=== PATIENT | female | born 1950 | race African-American/Black ===

== ENCOUNTER 2016-05-06 03:35 | Inpatient (IN) | payer OTHER ==
[~2016-05-06] VITALS: Ht 165.1 cm; Wt 74.8 kg
[2016-05-06] VITALS (8 sets, daily range): BP systolic 112–203; BP diastolic 89–112
[~2016-05-06 03:35] MED LIST: AMLODIPINE BESY10 MG ORAL; ASPIRIN81 MG ORAL; CLONIDINE0.1 MG GT; HYDROCHLOROTHIA25 MG ORAL; LIPITOR20 MG ORAL; LOPRESSOR25 M1 ORAL; LOSARTAN POTASS50 MG ORAL; MULTIVITAMINS1 EA14 PO; NORCO 5-325 TA1 EAC1 ORAL; TOPROL XL25 MG ORAL; ZOFRAN4 M1 ORAL
[2016-05-06] MEDS ORDERED: METOPROLOL TART25 MG ORAL (03:39)
--- NOTE | 2016-05-06 03:51 | Emergency Room Report ---
History of Present Illness General Chief Complaint: Vomiting Source: Patient Present Illness HPI 65 YO F with HTN with nausea,vomiting, and abd distention for last 12 hours. Associated with decreased bowel movements, not passing gas. Previous hysterectomy and "surgery to remove scar tissue." Denies chest pain, SOB, fever /chills, urinary complaints. Allergies: Coded Allergies: CODEINE (Unverified Allergy, Severe, Hives, 11/13/13) Patient History Past Medical History: HTN Past Surgical History: hysterectomy Pertinent Family History: none Social History: Denies: alcohol use, drug use, smoking Immunizations: UTD Reviewed Nursing Documentation: PMH: Agreed, PSxH: Agreed Nursing Documentation-PMH Hx Cardiac Problems: Yes - STENT Hx Hypertension: Yes Hx Cancer: No Hx Gastrointestinal Problems: Yes - hiatal hernia Hx Neurological Problems: No Review of Systems All Other Systems: negative except mentioned in HPI Physical Exam Vital Signs Date Time Temp Pulse Resp B/P Pulse Ox O2 Delivery O2 Flow Rate FiO2 05/06/16 03:33 98.1 118 18 204/99 96 Room Air Sp02 EP Interpretation: reviewed, abnormal General Appearance: normal inspection, well appearing, alert, GCS 15, non-toxic , moderate distress Head: normocephalic, atraumatic Eyes: bilateral eye EOMI, bilateral eye PERRL ENT: normal ENT inspection, hearing grossly normal, normal voice Neck: normal inspection, full range of motion, supple, no bony tend Respiratory: normal inspection, lungs clear, normal breath sounds, no respiratory distress, no retraction, no wheezing Cardiovascular #1: regular rate, rhythm, no edema Gastrointestinal: normal inspection, normal bowel sounds, no hernia, no pulsatile mass, no rebound, distended Genitourinary: no CVA tenderness Musculoskeletal: normal inspection, back normal, normal range of motion, Gerardo' s Sign negative Neurologic: normal inspection, alert, oriented x3, responsive, 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 Elevated lipase. Lactate 4.0 CTAP: On ED review, multiple loops of dilated bowel, air fluid levels NG Tube placed with bilious dark materials, >700cc so far Dr Merlos consulted LR maintenance fluid in process Empiric Abx given Serial Lactate sent NPO Endorsed to Dr Pathak for med/surg admissions at 548am EKG Diagnostic Results Rate: tachycardiac Rhythm: NSR ST Segments: no acute changes ASA given to the pt in ED: No Rhythm Strip Diag. Results EP Interpretation: yes Rate: 114 Rhythm: NSR, no PVC's, no ectopy Chest X-Ray Diagnostic Results EP Interpretation: Yes Findings: no consolidation, no effusion, no pneumothorax, no acute cardiopulmonary disease Number of Views: 1 Last Vital Signs Date Time Temp Pulse Resp B/P Pulse Ox O2 Delivery O2 Flow Rate FiO2 05/06/16 03:33 98.1 118 18 204/99 96 Room Air Status: improved Disposition: ADMITTED INPATIENT Condition: Serious TACO QUINONES M.D. May 06, 2016 03:51
[2016-05-06] MEDS ORDERED: Zosyn 3.375gm inj ONE (03:54)
[2016-05-06] MEDS ORDERED: Famotidine 20 MG/ 2ML VIAL IVP ONE (04:00)
[2016-05-06 04:22] LABS: MEAN CORPUSCULAR HEMOGLOBIN 28.4 PG (27.0-31.0); MEAN CORPUSCULAR HGB CONC 30.2 G/DL (32.0-36.0); MEAN CORPUSCULAR VOLUME 94 FL (80-99); MEAN PLATELET VOLUME 9.8 FL (6.5-10.1); PLATELET COUNT 209 K/UL (150-450); RED BLOOD COUNT 4.67 M/UL (4.20-5.40); RED CELL DISTRIBUTION WIDTH 19.6 % (11.6-14.8); WHITE BLOOD COUNT 11.5 K/UL (4.8-10.8)
[2016-05-06] MEDS ORDERED: LR 1000ml 1,000 ML IV SCH ×2 (04:30→06:00)
[2016-05-06 04:43] LABS: ALANINE AMINOTRANSFERASE 8 U/L (3-33); ALBUMIN/GLOBULIN RATIO 1.2 (1.0-2.7); ANION GAP 24 (5-15); ASPARTATE AMINO TRANSFERASE 17 U/L (5-40); CALCIUM 10.9 mg/dL (8.6-10.2); CARBON DIOXIDE 25 mEQ/L (20-30); CHLORIDE 96 mEQ/L (98-107); GLOMERULAR FILTRATION RATE > 60 mL/min (>60); HEMOLYSIS 0; LIPASE 68 U/L (< 60); POTASSIUM 3.8 mEQ/L (3.4-4.9); SODIUM 145 mEQ/L (135-145); TOTAL PROTEIN 9.1 g/dL (6.6-8.7)
[2016-05-06 04:45] LABS: TROPONIN I < 0.30 ng/mL (<=0.30)
[2016-05-06] MEDS ORDERED: Morphine Sulfate 2mg/ml Inj IVP ONE (04:45)
[2016-05-06 05:15] LABS: APPEARANCE,URINE SLIGHTLY CLOUDY; KETONES,URINE 1+ (NEGATIVE); LEUKOCYTE ESTERASE ,URINE 1+ (NEGATIVE); NITRITE,URINE NEGATIVE (NEGATIVE); PH,URINE 5 (4.5-8.0); PROTEIN,URINE 4+ (NEGATIVE); UROBILINOGEN,URINE 1 MG/DL (0.0-1.0)
[2016-05-06 05:35] LABS: REFLEX LACTIC ACID YES OR NO YES
[2016-05-06 05:44] LABS: AMORPHOUS SEDIMENT,UR FEW /LPF; BACTERIA,URINE MODERATE /HPF; MUCUS,URINE FEW /LPF (NONE/OCC); SQUAMOUS EPITHELIAL CELL,UR MODERATE /LPF (NONE/OCC)
[2016-05-06] MEDS ORDERED: Morphine Sulfate 4mg/ml Inj IVP ONE (05:45)
[2016-05-06] MEDS ORDERED: Piperacillin/Tazobactam 3.375 GM in NS 110 ML IVPB ONE (06:00)
[2016-05-06 06:59] LABS: PROTHROMBIN TIME 9.9 SEC (9.30-11.50)
[2016-05-06] MEDS ORDERED: Nitroglycerin Subl 0.4mg tab (Bottle Of 25) SL PRN ×2 (07:15→14:45)
[2016-05-06] MEDS ORDERED: Miralax 17gm pkt ORAL PRN ×2 (07:15→15:30)
[2016-05-06] MEDS ORDERED: Mylanta II UD 30ml ORAL PRN ×2 (07:15→15:30)
[2016-05-06] MEDS ORDERED: Morphine Sulfate 2mg/ml Inj IVP PRN (07:15)
[2016-05-06] MEDS ORDERED: D5 1/2NS 1,000 ML IV SCH (07:30)
[2016-05-06] MEDS ORDERED: Heparin 5000 units/ml inj SUBQ SCH (09:00)
--- NOTE | 2016-05-06 09:54 | General Progress Note ---
Progress Note Progress Note pt seen and examined. consult dictated CT reviewed with raqdiologist. Imp high grade bowel obstruction, most likely to pelvic adhesions. Plan admit, hydrate. NG sucction, Serial exams and xrays, If no improvement will need exploratory laparotomy AMISH YOON May 06, 2016 09:54
[2016-05-06] MEDS ORDERED: Losartan 50mg tab ORAL SCH (10:00)
--- NOTE | 2016-05-06 10:04 | Diagnostic Imaging Report ---
Clinical Indication: Abdominal pain Technique: No oral contrast utilized, per emergency room physician request IV administration nonionic contrast. Venous phase spiral acquisition obtained through the abdomen and pelvis. Multiplanar reconstructions were generated. Total dose length product 87 mGycm. CTDIvol(s) 16 mGy Comparison: None Findings: The small bowel, stomach, duodenum are markedly dilated and fluid-filled. There are collapsed distal small bowel loops. The exact transition point is difficult to ascertain, but suspect in the upper pelvic midline. The appendix is normal. Colon is nondistended. There is no evidence of diverticulosis or diverticulitis. A small amount of free fluid is seen over the dome of the liver and over the spleen. No free intraperitoneal air. There is somewhat unusual appearance of the gastroesophageal junction, could indicate prior fundoplication. The liver, gallbladder, bile ducts, pancreas, spleen, adrenals, kidneys are unremarkable. The uterus is surgically absent. There are degenerative changes of the lumbar spine. The included lung bases are clear. Impression: Findings compatible with high-grade small bowel obstruction, level of obstruction at the level of the ileum. Probably secondary to effusions. Post surgical changes, as described, including likely prior fundoplication, prior hysterectomy Small amount of free intraperitoneal fluid, etiology indeterminate This agrees with the preliminary interpretation provided overnight by [facility] teleradiology service. The CT scanner at [facility] is accredited by the [employer] and the scans are performed using protocols designed to limit radiation exposure to as low as reasonably achievable to attain images of sufficient resolution adequate for diagnostic evaluation.
[2016-05-06 10:08] LABS: BAND NEUTROPHILS % (MANUAL) 2 % (0-8); BASOPHILS % (MANUAL) 0 % (0-2); EOSINOPHILS % (MANUAL) 0 % (0-3); HYPOCHROMASIA 1+; LYMPHOCYTES % (MANUAL) 14 % (20-45); NEUTROPHILS % (MANUAL) 77 % (45-75); PLATELET ESTIMATE ADEQUATE; PLATELET MORPHOLOGY NORMAL; TOTAL CELLS COUNTED 100
[2016-05-06 10:09] LABS: ANISOCYTOSIS 2+
[2016-05-06 10:10] LABS: STOMATOCYTES OCCASIONAL
--- NOTE | 2016-05-06 11:09 | Diagnostic Imaging Report ---
Indication: Chest pain Technique: One view of the chest Comparison: 04/05/2015 Findings: Lungs and pleural spaces are clear. Heart is mildly enlarged. Stomach is distended by gas. There are no significant interim change Impression: No acute process Borderline cardiomegaly
--- NOTE | 2016-05-06 15:09 | GI Initial Consult Note ---
History of Present Illness General Date patient seen: May 06, 2016 Time patient seen: 15:03 Reason for Hospitalization: Vomiting Referring physician: KATHERINE DOVE Reason for Consultation: ABDOMINAL DISTENTION / OBSTRUCTION Present Illness HPI 65 YO F with HTN with nausea,vomiting, and abd distention for last 12 hours. Associated with decreased bowel movements, not passing gas. Previous hysterectomy and "surgery to remove scar tissue." Denies chest pain, SOB, fever /chills, urinary complaints. GI CONSULT: HPI as noted above. GI consulted for evaluation of abdominal pain and distention x 24 hours. Pt presents with APCT findings compatible with high- grade small bowel obstruction now being followed by surgery. In addition, the patient presents with leukocytosis and elevated lipase. Unknown history of endoscopic procedures at this time. Service Date: 05/06/16 Procedure: CT Abdomen Pelvis w/Contrast Clinical Indication: Abdominal pain Impression: Findings compatible with high-grade small bowel obstruction, level of obstruction at the level of the ileum. Probably secondary to effusions. Post surgical changes, as described, including likely prior fundoplication, prior hysterectomy Small amount of free intraperitoneal fluid, etiology indeterminate Home Meds Active Scripts Metoprolol Succinate* (TOPROL XL*) 25 Mg Tab.er.24h, 25 MG ORAL DAILY, #30 TAB Prov:Carlton (Aylin Negro CRICKET COACH 04/08/15 Reported Medications Metoprolol Tartrate* (METOPROLOL TARTRATE*) 25 Mg Tablet, 25 MG ORAL EVERY 12 HOURS, TAB 05/06/16 Ondansetron (Zofran) 4 Mg Tab, 4 MG ORAL Q6H Y for Nausea & Vomiting, TAB 11/19/13 Hydrocodone Bit/Acetaminophen 5-325* (NORCO 5-325 TABLET*) 1 Each Tablet, 1-2 TAB ORAL Q4H Y for For Pain, TAB 11/19/13 Losartan Potassium* (LOSARTAN POTASSIUM*) 50 Mg Tablet, 50 MG ORAL DAILY, TAB 11/13/13 Atorvastatin Calcium* (LIPITOR*) 20 Mg Tablet, 20 MG ORAL BEDTIME, TAB 11/13/13 Aspirin* (ASPIRIN*) 81 Mg Tab.chew, 81 MG ORAL DAILY, TAB 11/13/13 Metoprolol Tartrate (Metoprolol Tartrate) 25 Mg Tab, 50 MG ORAL BID Y for For High Blood Pressure, TAB 11/13/13 Hydrochlorothiazide* (HYDROCHLOROTHIAZIDE*) 25 Mg Tablet, 25 MG ORAL DAILY, TAB 11/13/13 Amlodipine Besylate* (AMLODIPINE BESYLATE*) 10 Mg Tablet, 10 MG ORAL DAILY, TAB 11/13/13 Multivitamin (Multivitamins) 1 Each Tablet, 1 EACH PO DAILY Y for Abdominal cramps, TAB 11/13/13 Clonidine HCl (Clonidine HCl) 0.1 Mg Tab, 0.1 MG GT BID, TAB 11/13/13 Med list reviewed/reconciled: Yes Allergies: Coded Allergies: CODEINE (Unverified Allergy, Severe, Hives, 11/13/13) Patient History History Provided By: Patient, Medical Record PMH Narrative Past Medical History: HTN Past Surgical History: hysterectomy Pertinent Family History: none Social History: Denies: alcohol use, drug use, smoking Immunizations: UTD Reviewed Nursing Documentation: PMH: Agreed, PSxH: Agreed Nursing Documentation-PMH Hx Cardiac Problems: Yes - STENT Hx Hypertension: Yes Hx Cancer: No Hx Gastrointestinal Problems: Yes - hiatal hernia Hx Neurological Problems: No Review of Systems All Other Systems: negative except mentioned in HPI Physical Exam Vital Signs Date Time Temp Pulse Resp B/P Pulse Ox O2 Delivery O2 Flow Rate FiO2 05/06/16 03:33 98.1 118 18 204/99 96 Room Air 05/06/16 06:30 2.0 Sp02 EP Interpretation: reviewed Labs Laboratory Tests Test 05/06/16 03:00 05/06/16 03:34 05/06/16 03:47 05/06/16 06:20 White Blood Count 11.5 K/UL (4.8-10.8) H Red Blood Count 4.67 M/UL (4.20-5.40) Hemoglobin 13.3 G/DL (12.0-16.0) Hematocrit 44.0 % (37.0-47.0) Mean Corpuscular Volume 94 FL (80-99) Mean Corpuscular Hemoglobin 28.4 PG (27.0-31.0) Mean Corpuscular Hemoglobin Concent 30.2 G/DL (32.0-36.0) L Red Cell Distribution Width 19.6 % (11.6-14.8) H Platelet Count 209 K/UL (150-450) Mean Platelet Volume 9.8 FL (6.5-10.1) Neutrophils (%) (Auto) % (45.0-75.0) Lymphocytes (%) (Auto) % (20.0-45.0) Monocytes (%) (Auto) % (1.0-10.0) Eosinophils (%) (Auto) % (0.0-3.0) Basophils (%) (Auto) % (0.0-2.0) Differential Total Cells Counted 100 Neutrophils % (Manual) 77 % (45-75) H Lymphocytes % (Manual) 14 % (20-45) L Monocytes % (Manual) 7 % (1-10) Eosinophils % (Manual) 0 % (0-3) Basophils % (Manual) 0 % (0-2) Band Neutrophils 2 % (0-8) Platelet Estimate Adequate Platelet Morphology Normal Hypochromasia 1+ Anisocytosis 2+ Stomatocytes Occasional Sodium Level 145 mEQ/L (135-145) Potassium Level 3.8 mEQ/L (3.4-4.9) Chloride Level 96 mEQ/L (98-107) L Carbon Dioxide Level 25 mEQ/L (20-30) Anion Gap 24 (5-15) H Blood Urea Nitrogen 23 mg/dL (7-23) Creatinine 1.0 mg/dL (0.5-0.9) H Estimat Glomerular Filtration Rate > 60 mL/min (>60) Glucose Level 239 mg/dL (74-106) H Calcium Level 10.9 mg/dL (8.6-10.2) H Total Bilirubin 0.9 mg/dL (0.0-1.2) Aspartate Amino Transf (AST/SGOT) 17 U/L (5-40) Alanine Aminotransferase (ALT/SGPT) 8 U/L (3-33) Alkaline Phosphatase 98 U/L (35-104) Troponin I < 0.30 ng/mL (<=0.30) Total Protein 9.1 g/dL (6.6-8.7) H Albumin 5.0 g/dL (3.5-5.2) Globulin 4.1 g/dL Albumin/Globulin Ratio 1.2 (1.0-2.7) Lipase 68 U/L (< 60) H Urine Color Tasia Urine Appearance Slightly cloudy Urine pH 5 (4.5-8.0) Urine Specific [place] 1.025 (1.005-1.035) Urine Protein 4+ (NEGATIVE) H Urine Glucose (UA) Negative (NEGATIVE) Urine Ketones 1+ (NEGATIVE) H Urine Occult Blood 4+ (NEGATIVE) H Urine Nitrite Negative (NEGATIVE) Urine Bilirubin 1+ (NEGATIVE) H Urine Ictotest Urine Urobilinogen 1 MG/DL (0.0-1.0) H Urine Leukocyte Esterase 1+ (NEGATIVE) H Urine RBC 5-10 /HPF (0 - 2) H Urine WBC 2-4 /HPF (0 - 2) Urine Squamous Epithelial Cells Moderate /LPF (NONE/OCC) H Urine Amorphous Sediment Few /LPF (NONE) H Urine Bacteria Moderate /HPF (NONE) H Urine Hyaline Casts 5-10 /LPF (NONE) H Urine Coarse Granular Casts 2-4 /LPF (NONE) H Urine Mucus Few /LPF (NONE/OCC) H Lactic Acid Level 4.00 mmol/L (0.66-2.22) H 3.60 mmol/L (0.66-2.22) H Prothrombin Time 9.9 SEC (9.30-11.50) Prothromb Time International Ratio 1.0 (0.9-1.1) Activated Partial Thromboplast Time 26 SEC (23-33) General Appearance: well appearing, no apparent distress, alert Head: normocephalic EENT: PERRL/EOMI, normal ENT inspection Neck: supple Respiratory: normal breath sounds, no respiratory distress Cardiovascular: normal rate Gastrointestinal: normal inspection, non tender, soft, other - NGT Rectal: deferred Musculoskeletal: back normal Neurologic: alert, oriented x3, responsive Psychiatric: normal inspection, judgement/insight normal Skin: normal inspection, normal color, no rash Lymphatic: normal inspection, no adenopathy Current Medications Current Medications Medications (Trade) Dose Ordered Sig/Talita Route PRN Reason Start Time Stop Time Status Last Admin Dose Admin Acetaminophen (Tylenol) 650 mg Q4H PRN ORAL fever 05/06/16 15:15 06/05/16 15:14 Al Hydroxide/Mg Hydroxide (Mylanta II) 30 ml Q6H PRN ORAL dyspepsia 05/06/16 15:30 06/05/16 15:29 Amlodipine Besylate (Norvasc) 10 mg DAILY ORAL 05/07/16 09:00 06/06/16 08:59 Dextrose (Dextrose 50%) STAT PRN IV Hypoglycemia 05/06/16 15:30 06/05/16 15:29 Dextrose/Sodium Chloride (D5 0.45% NS) 1,000 ml @ 75 mls/hr [id number] IV 05/06/16 15:30 06/05/16 15:29 Diphenhydramine HCl (Benadryl) 25 mg Q6H PRN ORAL Itching/Pruritis 05/06/16 15:30 06/05/16 15:29 Heparin Sodium (Porcine) (Heparin 5000 units/ml) 5,000 units EVERY 12 HOURS SUBQ 05/06/16 21:00 06/05/16 20:59 Losartan Potassium (Cozaar) 50 mg DAILY ORAL 05/07/16 09:00 06/06/16 08:59 Metoprolol Succinate (Toprol XL) 25 mg DAILY ORAL 05/07/16 09:00 06/06/16 08:59 Morphine Sulfate (Morphine Sulfate) 2 mg Q4H PRN IVP severe Pain (Pain Scale 7-10) 05/06/16 15:30 05/13/16 15:29 Nitroglycerin (Ntg) 0.4 mg Q5M X 3 DOSES PRN SL Prn Chest Pain 05/06/16 14:45 06/05/16 14:44 Ondansetron HCl (Zofran) 4 mg Q6H PRN IVP Nausea & Vomiting 05/06/16 15:30 06/05/16 15:29 Polyethylene Glycol (Miralax) 17 gm HSPRN PRN ORAL Constipation 05/06/16 15:30 06/05/16 15:29 Temazepam (Restoril) 15 mg HSPRN PRN ORAL Insomnia 05/06/16 15:30 05/13/16 15:29 GI: Plan Problems: (1) Abdominal pain (2) SBO (small bowel obstruction) (3) Pancreatitis Plan fu surgical recs >> Imp high grade bowel obstruction, most likely to pelvic adhesions. bowel decompression >> maintain NGT to LCIS maintain NPO + IVFs PPI repeat lipase levels fu labs Discussed with Dr. Benitez. Thank you for referring this patient, we will follow. Luz Marina Rodriguez N.P. May 06, 2016 15:09
--- NOTE | 2016-05-06 15:26 | History and Physical ---
History of Present Illness General Date patient seen: May 06, 2016 Reason for Hospitalization: Vomiting Present Illness HPI 65year old female with hx of HTN presented with CC of nausea,vomiting, and abd distention for last 12 hours. Associated with decreased bowel movements, not passing gas. Previous hysterectomy and "surgery to remove scar tissue." Denies chest pain, SOB, fever/chills, urinary complaints. A CT of abdomen showed SBO and admitted for further evaluation. Allergies: Coded Allergies: CODEINE (Unverified Allergy, Severe, Hives, 11/13/13) Medication History Scheduled Amlodipine Besylate* (Amlodipine Besylate*), 10 MG ORAL DAILY, (Reported) Aspirin* (Aspirin*), 81 MG ORAL DAILY, (Reported) Atorvastatin Calcium* (Lipitor*), 20 MG ORAL BEDTIME, (Reported) Clonidine HCl (Clonidine HCl), 0.1 MG GT BID, (Reported) Hydrochlorothiazide* (Hydrochlorothiazide*), 25 MG ORAL DAILY, (Reported) Losartan Potassium* (Losartan Potassium*), 50 MG ORAL DAILY, (Reported) Metoprolol Succinate* (Toprol Xl*), 25 MG ORAL DAILY Metoprolol Tartrate* (Metoprolol Tartrate*), 25 MG ORAL EVERY 12 HOURS, ( Reported) Scheduled PRN Hydrocodone Bit/Acetaminophen 5-325* ([place] 5-325 Tablet*), 1-2 TAB ORAL Q4H PRN for For Pain, (Reported) Metoprolol Tartrate (Metoprolol Tartrate), 50 MG ORAL BID PRN for For High Blood Pressure, (Reported) Multivitamin (Multivitamins), 1 EACH PO DAILY PRN for Abdominal cramps, ( Reported) Ondansetron (Zofran), 4 MG ORAL Q6H PRN for Nausea & Vomiting, (Reported) Patient History Healthcare decision maker Resuscitation status Full Code Advanced Directive on File No Review of Systems All Other Systems: negative except mentioned in HPI Physical Exam General Appearance: WD/WN Lines, tubes and drains: peripheral HEENT: normocephalic, atraumatic Neck: non-tender, normal alignment Respiratory/Chest: chest wall non-tender, lungs clear Cardiovascular/Chest: normal peripheral pulses, normal rate Abdomen: distended Genitourinary/Rectal: normal genital exam, normal rectal exam Last 24 Hour Vital Signs Date Time Temp Pulse Resp B/P Pulse Ox O2 Delivery O2 Flow Rate FiO2 05/06/16 14:30 84 05/06/16 11:28 97.5 83 19 192/98 96 Room Air 05/06/16 10:21 97.3 92 19 198/94 96 Nasal Cannula 2.0 05/06/16 09:39 97.5 86 18 194/89 100 Room Air 2.0 05/06/16 09:10 97.5 86 18 194/89 100 Room Air 05/06/16 07:45 98.2 102 18 203/95 98 Nasal Cannula 2.0 05/06/16 06:30 98.4 99 17 193/91 97 Nasal Cannula 2.0 05/06/16 06:23 98.4 05/06/16 05:19 98.4 05/06/16 04:28 212/112 05/06/16 03:40 98.1 112 18 112/112 100 Room Air 05/06/16 03:33 98.1 118 18 204/99 96 Room Air Intake and Output 05/05/16 05/06/16 19:00 07:00 Intake Total 1100 ml Output Total 300 ml Balance 800 ml IV Total 1100 ml Output Urine Total 300 ml # Voids 1 Laboratory Tests Test 05/06/16 03:00 05/06/16 03:34 05/06/16 03:47 05/06/16 06:20 White Blood Count 11.5 K/UL (4.8-10.8) H Red Blood Count 4.67 M/UL (4.20-5.40) Hemoglobin 13.3 G/DL (12.0-16.0) Hematocrit 44.0 % (37.0-47.0) Mean Corpuscular Volume 94 FL (80-99) Mean Corpuscular Hemoglobin 28.4 PG (27.0-31.0) Mean Corpuscular Hemoglobin Concent 30.2 G/DL (32.0-36.0) L Red Cell Distribution Width 19.6 % (11.6-14.8) H Platelet Count 209 K/UL (150-450) Mean Platelet Volume 9.8 FL (6.5-10.1) Neutrophils (%) (Auto) % (45.0-75.0) Lymphocytes (%) (Auto) % (20.0-45.0) Monocytes (%) (Auto) % (1.0-10.0) Eosinophils (%) (Auto) % (0.0-3.0) Basophils (%) (Auto) % (0.0-2.0) Differential Total Cells Counted 100 Neutrophils % (Manual) 77 % (45-75) H Lymphocytes % (Manual) 14 % (20-45) L Monocytes % (Manual) 7 % (1-10) Eosinophils % (Manual) 0 % (0-3) Basophils % (Manual) 0 % (0-2) Band Neutrophils 2 % (0-8) Platelet Estimate Adequate Platelet Morphology Normal Hypochromasia 1+ Anisocytosis 2+ Stomatocytes Occasional Sodium Level 145 mEQ/L (135-145) Potassium Level 3.8 mEQ/L (3.4-4.9) Chloride Level 96 mEQ/L (98-107) L Carbon Dioxide Level 25 mEQ/L (20-30) Anion Gap 24 (5-15) H Blood Urea Nitrogen 23 mg/dL (7-23) Creatinine 1.0 mg/dL (0.5-0.9) H Estimat Glomerular Filtration Rate > 60 mL/min (>60) Glucose Level 239 mg/dL (74-106) H Calcium Level 10.9 mg/dL (8.6-10.2) H Total Bilirubin 0.9 mg/dL (0.0-1.2) Aspartate Amino Transf (AST/SGOT) 17 U/L (5-40) Alanine Aminotransferase (ALT/SGPT) 8 U/L (3-33) Alkaline Phosphatase 98 U/L (35-104) Troponin I < 0.30 ng/mL (<=0.30) Total Protein 9.1 g/dL (6.6-8.7) H Albumin 5.0 g/dL (3.5-5.2) Globulin 4.1 g/dL Albumin/Globulin Ratio 1.2 (1.0-2.7) Lipase 68 U/L (< 60) H Urine Color Tasia Urine Appearance Slightly cloudy Urine pH 5 (4.5-8.0) Urine Specific [place] 1.025 (1.005-1.035) Urine Protein 4+ (NEGATIVE) H Urine Glucose (UA) Negative (NEGATIVE) Urine Ketones 1+ (NEGATIVE) H Urine Occult Blood 4+ (NEGATIVE) H Urine Nitrite Negative (NEGATIVE) Urine Bilirubin 1+ (NEGATIVE) H Urine Ictotest Urine Urobilinogen 1 MG/DL (0.0-1.0) H Urine Leukocyte Esterase 1+ (NEGATIVE) H Urine RBC 5-10 /HPF (0 - 2) H Urine WBC 2-4 /HPF (0 - 2) Urine Squamous Epithelial Cells Moderate /LPF (NONE/OCC) H Urine Amorphous Sediment Few /LPF (NONE) H Urine Bacteria Moderate /HPF (NONE) H Urine Hyaline Casts 5-10 /LPF (NONE) H Urine Coarse Granular Casts 2-4 /LPF (NONE) H Urine Mucus Few /LPF (NONE/OCC) H Lactic Acid Level 4.00 mmol/L (0.66-2.22) H 3.60 mmol/L (0.66-2.22) H Prothrombin Time 9.9 SEC (9.30-11.50) Prothromb Time International Ratio 1.0 (0.9-1.1) Activated Partial Thromboplast Time 26 SEC (23-33) Height (Feet): 5 Height (Inches): 6.00 Weight (Pounds): 165 Medications Current Medications Medications (Trade) Dose Ordered Sig/Talita Route PRN Reason Start Time Stop Time Status Last Admin Dose Admin Acetaminophen (Tylenol) 650 mg Q4H PRN ORAL fever 05/06/16 15:15 06/05/16 15:14 Al Hydroxide/Mg Hydroxide (Mylanta II) 30 ml Q6H PRN ORAL dyspepsia 05/06/16 15:30 06/05/16 15:29 Amlodipine Besylate (Norvasc) 10 mg DAILY ORAL 05/07/16 09:00 06/06/16 08:59 Dextrose (Dextrose 50%) STAT PRN IV Hypoglycemia 05/06/16 15:30 06/05/16 15:29 Dextrose/Sodium Chloride (D5 0.45% NS) 1,000 ml @ 75 mls/hr [id number] IV 05/06/16 15:30 06/05/16 15:29 Diphenhydramine HCl (Benadryl) 25 mg Q6H PRN ORAL Itching/Pruritis 05/06/16 15:30 06/05/16 15:29 Heparin Sodium (Porcine) (Heparin 5000 units/ml) 5,000 units EVERY 12 HOURS SUBQ 05/06/16 21:00 06/05/16 20:59 Losartan Potassium (Cozaar) 50 mg DAILY ORAL 05/07/16 09:00 06/06/16 08:59 Metoprolol Succinate (Toprol XL) 25 mg DAILY ORAL 05/07/16 09:00 06/06/16 08:59 Morphine Sulfate (Morphine Sulfate) 2 mg Q4H PRN IVP severe Pain (Pain Scale 7-10) 05/06/16 15:30 05/13/16 15:29 Nitroglycerin (Ntg) 0.4 mg Q5M X 3 DOSES PRN SL Prn Chest Pain 05/06/16 14:45 06/05/16 14:44 Ondansetron HCl (Zofran) 4 mg Q6H PRN IVP Nausea & Vomiting 05/06/16 15:30 06/05/16 15:29 Pantoprazole (Protonix) 40 mg DAILY IVP 05/07/16 09:00 06/06/16 08:59 Polyethylene Glycol (Miralax) 17 gm HSPRN PRN ORAL Constipation 05/06/16 15:30 06/05/16 15:29 Temazepam (Restoril) 15 mg HSPRN PRN ORAL Insomnia 05/06/16 15:30 05/13/16 15:29 Assessment/Plan Problem List: (1) SBO (small bowel obstruction) ICD Codes: K56.69 - Other intestinal obstruction SNOMED: 958563621 (2) Abdominal pain ICD Codes: R10.9 - Unspecified abdominal pain SNOMED: 80282831 Qualifiers: Qualified Codes: R10.84 - Generalized abdominal pain Assessment/Plan NPO NG tube suction surgery evaluation KATHERINE ARANA May 06, 2016 15:26
--- NOTE | 2016-05-06 16:35 | Diagnostic Imaging Report ---
Indication: Abdominal pain Technique: Supine view of the abdomen Comparison: Disc Recordist image from CT scan of 9 hours earlier Findings: There is a nasogastric tube in place, tip projecting at the level gastric body. Small bowel distention as improved markedly, although a few mildly distended small bowel loops are still present. A somewhat gas-filled left lower quadrant bowel loop is probably just normal caliber sigmoid colon. Contrast is seen within the bladder, presumably from recent CT scan Impression: Persistent but considerably improved small bowel distention, overnight hours, consistent with improving small bowel obstruction Satisfactory nasogastric tube placement Findings discussed by phone with Dr. Merlos at the time of interpretation
[2016-05-06] MEDS: D5 1/2NS 1,000 ML IV SCH (16:51)
--- NOTE | 2016-05-06 17:03 | Diagnostic Imaging Report ---
Indication: Abdominal pain, nausea, vomiting Technique: Martinez-scale and duplex images of the upper abdomen were obtained Comparison: CT scan of 6 hours earlier Findings: There is trace ascites fluid. This is also reported on prior CT. Gallbladder is unremarkable, without stones, wall thickening, nor pericholecystic fluid. . Common bile duct measures 5 mm in diameter. No intrahepatic biliary ductal dilatation. Liver demonstrates normal echogenicity, no focal abnormality. Portal vein and hepatic veins are patent.. Pancreas is unremarkable. The spleen is unremarkable. A fluid pocket is seen inferomedial to the spleen. This does not have any correlate on CT, may represent a focal pocket of ascites fluid, or could represent fluid-filled stomach or small bowel. Left kidney measures 11.7 cm in length. Right kidney measures 11.9 cm length. Both kidneys demonstrate normal echogenicity. There is mild fullness of the right renal pelvis. No focal abnormality. . Non-aneurysmal abdominal aorta. Bladder is distended Impression: Trace ascites, also described on recent CT scan Negative for gallstones or dilated ducts Distended urinary bladder Mild fullness to the right renal collecting system, of doubtful significance as this is not evident on recent CT
--- NOTE | 2016-05-06 17:58 | Consultation ---
DATE OF CONSULTATION: 05/06/2016 REASON FOR CONSULTATION: Small bowel obstruction. HISTORY OF PRESENT ILLNESS: This is a very pleasant 65-year-old, woman presented to the emergency department at [facility] with one-day history of abdominal pain, nausea, and vomiting. She underwent a CT scan of the abdomen showing a moderate to severe dilatation of proximal small bowel with loops with air-fluid levels with a transition in the pelvis to normal caliber bowel consistent with a bowel obstruction. She was admitted for same. The last bowel movement was yesterday. They had noted less than last few days. She has had a previous total abdominal hysterectomy and oophorectomy and had another surgery to "remove scar tissue". PAST MEDICAL HISTORY: Remarkable for hypertension and hypercholesterolemia. FAMILY HISTORY: Not relevant. SOCIAL HISTORY: . Retired. REVIEW OF SYSTEMS: Pulmonary: No history of asthma, bronchitis, emphysema, pneumonia or tuberculosis. Gastrointestinal: No history of chest pain, palpitations, angina or NM. Genitourinary: No history of reflux, peptic ulcer disease, colitis, hepatitis, jaundice or pancreatitis. Gynecologic: Status post hysterectomy. She is a 2. She has grown twins and another child. Cardiac: The patient did undergo a stent placement. PHYSICAL EXAMINATION: GENERAL: The patient is a well-developed pleasant woman in mild distress. Alert and cooperative. NG in place. VITAL SIGNS: Her temperature is 97.5 degrees, pulse of 86, respirations 18, and blood pressure 194/89. HEENT: Normocephalic. The sclerae are not icteric. The pupils are round and reactive to light. Her throat is clear. NECK: Supple. LUNGS: Clear bilaterally. HEART: Normal sinus rhythm. ABDOMEN: Distended. No focal tenderness or guarding. Bowel sounds are hyperactive. EXTREMITIES: No clubbing, cyanosis, or edema. LABORATORY AND DIAGNOSTIC DATA: White blood count 11.5, hemoglobin of 13.2, hematocrit 44.0 and platelet count is 209,000. Chemistry shows a sodium 145, potassium 3.8, chloride 96, bicarbonate 25, BUN is 23, creatinine 1.0 and glucose is 239. Lactic acid is 3.6. Total bilirubin 0.9. AST of 17, ALT of 18 and alkaline phosphatase of 98. Total protein 9.1. Albumin 5.0. Lipase is 68. CT scan reviewed with radiologist shows as mentioned are markedly dilated small bowel loops with a transition point in the pelvis and uterus is absent. The appendix appears normal. No radiopaque gallstones, evidence of pancreatitis or pyelonephritis or hydronephrosis. IMPRESSION: Small-bowel obstruction. PLAN: The patient is admitted. She is undergoing NG suction and will undergo followup acute abdominal series. I had a long discussion with the patient and her about the diagnosis differential, probable need for surgery, the possibility that this may be managed conservatively with NG suction. The patient understands above and agrees with the plan. Shahbaz Merlos M.D. DR: DANIEL JOB#: [id number] CC:
[2016-05-06] MEDS ORDERED: Enalaprilat 2.5mg/2ml Inj IV PRN (18:30)
--- NOTE | 2016-05-06 19:48 | Cardiology Report ---
APPROVED REPORT EKG Measurement Heart [id number] DC 132P67 [id number] Sinus tachycardia Possible Left atrial enlargement Left ventricular hypertrophy Nonspecific T wave abnormality Abnormal ECG
[2016-05-06] MEDS: Heparin 5000 units/ml inj SUBQ SCH (20:49)
[2016-05-06] MEDS: Morphine Sulfate 2mg/ml Inj IVP PRN (21:06)
[2016-05-07] VITALS (8 sets, daily range): BP systolic 119–196; BP diastolic 68–98
[2016-05-07] MEDS: Labetalol 5mg/ml 20ml vial IV PRN ×3 (01:00→20:49)
[2016-05-07] MEDS: D5 1/2NS 1,000 ML IV SCH ×2 (05:56→19:17)
[2016-05-07 08:04] LABS: BASOPHILS % (AUTO) 0.7 % (0.0-2.0); EOSINOPHILS % (AUTO) 0.1 % (0.0-3.0); LYMPHOCYTES % (AUTO) 23.1 % (20.0-45.0); MEAN CORPUSCULAR HEMOGLOBIN 27.8 PG (27.0-31.0); MEAN CORPUSCULAR HGB CONC 29.3 G/DL (32.0-36.0); MEAN CORPUSCULAR VOLUME 95 FL (80-99); MEAN PLATELET VOLUME 10.6 FL (6.5-10.1); MONOCYTES % (AUTO) 7.3 % (1.0-10.0); NEUTROPHILS % (AUTO) 68.9 % (45.0-75.0); PLATELET COUNT 159 K/UL (150-450); RED BLOOD COUNT 3.88 M/UL (4.20-5.40); RED CELL DISTRIBUTION WIDTH 19.4 % (11.6-14.8); WHITE BLOOD COUNT 7.1 K/UL (4.8-10.8)
[2016-05-07] MEDS: Pantoprazole Inj IVP SCH (08:16)
[2016-05-07] MEDS: Losartan 50mg tab ORAL SCH (08:16)
[2016-05-07] MEDS: Heparin 5000 units/ml inj SUBQ SCH ×2 (08:19→20:50)
[2016-05-07 08:22] LABS: ALANINE AMINOTRANSFERASE 8 U/L (3-33); ALBUMIN/GLOBULIN RATIO 1.2 (1.0-2.7); AMYLASE 62 U/L (10-110); ANION GAP 14 (5-15); ASPARTATE AMINO TRANSFERASE 22 U/L (5-40); CALCIUM 9.9 mg/dL (8.6-10.2); CARBON DIOXIDE 31 mEQ/L (20-30); CHLORIDE 99 mEQ/L (98-107); CREATININE 0.7 mg/dL (0.5-0.9); GLOMERULAR FILTRATION RATE > 60 mL/min (>60); HEMOLYSIS 4; LIPASE 16 U/L (< 60); POTASSIUM 3.6 mEQ/L (3.4-4.9); SODIUM 144 mEQ/L (135-145); TOTAL PROTEIN 7.3 g/dL (6.6-8.7)
--- NOTE | 2016-05-07 09:29 | General Surgery Progress Note ---
General Surgery-Progress Note Subjective Reason for Consult abdominal pain, partial vs complete SBO. Procedure Performed Feels better, less pain, still some tenderness. NG scanty clear output, no BM or flatus Symptoms: improved Additional Comments Xrays yesterday and this am overall better than admission CT scan. More gas in colon and into sigmoid, less SN distention. Objective Last 24 Hour Vital Signs Date Time Temp Pulse Resp B/P Pulse Ox O2 Delivery O2 Flow Rate FiO2 05/07/16 08:16 88 160/92 05/07/16 08:16 160/92 05/07/16 08:15 88 160/92 05/07/16 04:30 97.9 74 20 167/77 94 Room Air 05/07/16 04:00 66 05/07/16 01:00 90 182/98 05/07/16 00:00 78 05/07/16 00:00 97.0 66 20 182/98 96 Room Air 05/06/16 20:00 79 05/06/16 20:00 77 18 188/95 100 Room Air 05/06/16 19:03 203/100 05/06/16 16:00 79 05/06/16 16:00 98.1 85 20 203/100 96 Room Air 05/06/16 14:30 84 05/06/16 11:28 97.5 83 19 192/98 96 Room Air 05/06/16 10:21 97.3 92 19 198/94 96 Nasal Cannula 2.0 05/06/16 09:39 97.5 86 18 194/89 100 Room Air 2.0 I&O Intake and Output 05/06/16 05/07/16 19:00 07:00 Intake Total 836 ml 750 ml Output Total 300 ml Balance 536 ml 750 ml Intake Oral 0 ml IV Total 836 ml 750 ml Output Urine Total 300 ml # Voids 2 # Bowel Movements 1 Cardiovascular: RSR Respiratory: clear Abdomen: soft, distended - 1-2+, tender 2+ upper abdomen, not in pelvis or lower abdomen. Extremities: no edema Laboratory Tests Test 05/07/16 07:25 White Blood Count 7.1 K/UL (4.8-10.8) Red Blood Count 3.88 M/UL (4.20-5.40) L Hemoglobin 10.8 G/DL (12.0-16.0) L Hematocrit 36.8 % (37.0-47.0) L Mean Corpuscular Volume 95 FL (80-99) Mean Corpuscular Hemoglobin 27.8 PG (27.0-31.0) Mean Corpuscular Hemoglobin Concent 29.3 G/DL (32.0-36.0) L Red Cell Distribution Width 19.4 % (11.6-14.8) H Platelet Count 159 K/UL (150-450) Mean Platelet Volume 10.6 FL (6.5-10.1) H Neutrophils (%) (Auto) 68.9 % (45.0-75.0) Lymphocytes (%) (Auto) 23.1 % (20.0-45.0) Monocytes (%) (Auto) 7.3 % (1.0-10.0) Eosinophils (%) (Auto) 0.1 % (0.0-3.0) Basophils (%) (Auto) 0.7 % (0.0-2.0) Activated Partial Thromboplast Time 27 SEC (23-33) Sodium Level 144 mEQ/L (135-145) Potassium Level 3.6 mEQ/L (3.4-4.9) Chloride Level 99 mEQ/L (98-107) Carbon Dioxide Level 31 mEQ/L (20-30) H Anion Gap 14 (5-15) Blood Urea Nitrogen 14 mg/dL (7-23) Creatinine 0.7 mg/dL (0.5-0.9) Estimat Glomerular Filtration Rate > 60 mL/min (>60) Glucose Level 102 mg/dL (74-106) # Calcium Level 9.9 mg/dL (8.6-10.2) Total Bilirubin 0.8 mg/dL (0.0-1.2) Aspartate Amino Transf (AST/SGOT) 22 U/L (5-40) Alanine Aminotransferase (ALT/SGPT) 8 U/L (3-33) Alkaline Phosphatase 69 U/L (35-104) Total Protein 7.3 g/dL (6.6-8.7) Albumin 4.0 g/dL (3.5-5.2) Globulin 3.3 g/dL Albumin/Globulin Ratio 1.2 (1.0-2.7) Amylase Level 62 U/L (10-110) Lipase 16 U/L (< 60) Additional Comments Probably resolving moderate to high grade small bowel obstruction, adhesions and narrowed intestine, with likely food indiscretion causing the apparently resolving SBO, Afebrile, less pain and tenderness, resolved leukocytosis. Assessment Additional Comments Continue NG, bowel rest, IV hydration, and spoke with Dr. Decker re: doing an upper GI series with small bowel follow through xray series in am. Hopefully will be diagnostic and therapeutic, and may avoid exploration. MIKAEL HARRELL May 07, 2016 09:29
[2016-05-07] MEDS: Morphine Sulfate 2mg/ml Inj IVP PRN (12:22)
--- NOTE | 2016-05-07 12:34 | Diagnostic Imaging Report ---
Indication: ABD DIST, nausea and vomiting Technique: Supine and upright views of the abdomen Comparison: 05/06/2016 Findings: Again demonstrated, mildly distended small bowel loops in the left upper quadrant, degree of distention appears similar to prior exam. There appears to be increased colonic gas currently present. No significant air-fluid levels or evidence of free intraperitoneal air. Nasogastric tube appears withdrawn slightly as compared to prior study, proximal port now probably within the distal esophagus. Is there are are consistent with basilar atelectatic changes. No unusual masses or calcifications Impression: Persistent mildly dilated left upper quadrant small bowel loops, appearing similar to the previous day's exam. Slightly increased colonic gas. Given recent CT findings, findings remain consistent with partial small bowel obstruction. Increased colonic gas may indicate improvement since the previous day Malposition of nasogastric tube Images previously reviewed in person with Dr. Wilkerson
--- NOTE | 2016-05-07 13:16 | GI Progress Note ---
Assessment/Plan Problems: (1) Abdominal pain ICD Codes: R10.9 - Unspecified abdominal pain SNOMED: 07649599 Qualifiers: Qualified Codes: R10.84 - Generalized abdominal pain (2) SBO (small bowel obstruction) ICD Codes: K56.69 - Other intestinal obstruction SNOMED: 487329399 (3) Anemia ICD Codes: D64.9 - Anemia, unspecified SNOMED: 976464687 (4) Pancreatitis ICD Codes: K85.90 - Acute pancreatitis without necrosis or infection, unspecified SNOMED: 92920090 Qualifiers: Qualified Codes: K85.90 - Acute pancreatitis without necrosis or infection, unspecified Status: progressing Status Narrative Discussed with Dr. Benitez. Assessment/Plan fu surgical recs >> Imp high grade bowel obstruction, most likely to pelvic adhesions. - Continue NG, bowel rest, IV hydration. bowel decompression >> maintain NGT to LCIS maintain NPO + IVFs fu SB xrays PPI repeat lipase levels >> WNL fu labs Subjective Gastrointestinal/Abdominal: Reports: abdomen distended - improved since admission, no symptoms Objective Last 24 Hour Vital Signs Date Time Temp Pulse Resp B/P Pulse Ox O2 Delivery O2 Flow Rate FiO2 05/07/16 08:16 88 160/92 05/07/16 08:16 160/92 05/07/16 08:15 88 160/92 05/07/16 08:00 100.7 69 18 160/92 96 Room Air 05/07/16 08:00 73 05/07/16 04:30 97.9 74 20 167/77 94 Room Air 05/07/16 04:00 66 05/07/16 01:00 90 182/98 05/07/16 00:00 78 05/07/16 00:00 97.0 66 20 182/98 96 Room Air 05/06/16 20:00 79 05/06/16 20:00 77 18 188/95 100 Room Air 05/06/16 19:03 203/100 05/06/16 16:00 79 05/06/16 16:00 98.1 85 20 203/100 96 Room Air 05/06/16 14:30 84 Intake and Output 05/06/16 05/07/16 19:00 07:00 Intake Total 836 ml 825 ml Output Total 300 ml Balance 536 ml 825 ml Intake Oral 0 ml IV Total 836 ml 825 ml Output Urine Total 300 ml # Voids 2 # Bowel Movements 1 Laboratory Tests Test 05/07/16 07:25 White Blood Count 7.1 K/UL (4.8-10.8) Red Blood Count 3.88 M/UL (4.20-5.40) L Hemoglobin 10.8 G/DL (12.0-16.0) L Hematocrit 36.8 % (37.0-47.0) L Mean Corpuscular Volume 95 FL (80-99) Mean Corpuscular Hemoglobin 27.8 PG (27.0-31.0) Mean Corpuscular Hemoglobin Concent 29.3 G/DL (32.0-36.0) L Red Cell Distribution Width 19.4 % (11.6-14.8) H Platelet Count 159 K/UL (150-450) Mean Platelet Volume 10.6 FL (6.5-10.1) H Neutrophils (%) (Auto) 68.9 % (45.0-75.0) Lymphocytes (%) (Auto) 23.1 % (20.0-45.0) Monocytes (%) (Auto) 7.3 % (1.0-10.0) Eosinophils (%) (Auto) 0.1 % (0.0-3.0) Basophils (%) (Auto) 0.7 % (0.0-2.0) Activated Partial Thromboplast Time 27 SEC (23-33) Sodium Level 144 mEQ/L (135-145) Potassium Level 3.6 mEQ/L (3.4-4.9) Chloride Level 99 mEQ/L (98-107) Carbon Dioxide Level 31 mEQ/L (20-30) H Anion Gap 14 (5-15) Blood Urea Nitrogen 14 mg/dL (7-23) Creatinine 0.7 mg/dL (0.5-0.9) Estimat Glomerular Filtration Rate > 60 mL/min (>60) Glucose Level 102 mg/dL (74-106) # Calcium Level 9.9 mg/dL (8.6-10.2) Total Bilirubin 0.8 mg/dL (0.0-1.2) Aspartate Amino Transf (AST/SGOT) 22 U/L (5-40) Alanine Aminotransferase (ALT/SGPT) 8 U/L (3-33) Alkaline Phosphatase 69 U/L (35-104) Total Protein 7.3 g/dL (6.6-8.7) Albumin 4.0 g/dL (3.5-5.2) Globulin 3.3 g/dL Albumin/Globulin Ratio 1.2 (1.0-2.7) Amylase Level 62 U/L (10-110) Lipase 16 U/L (< 60) Height (Feet): 5 Height (Inches): 6.00 Weight (Pounds): 165 General Appearance: no apparent distress, alert Cardiovascular: normal rate Respiratory/Chest: normal breath sounds, no respiratory distress Abdominal Exam: normal bowel sounds, non tender, soft, abdominal scars Objective Patient passed gas yesterday per . no Luz Marina Duncan N.P. May 07, 2016 13:16
--- NOTE | 2016-05-07 15:48 | Pulmonology Progress Note ---
Assessment/Plan Problems: (1) SBO (small bowel obstruction) (2) Abdominal pain Assessment/Plan ng suction npo check electroltyes anemia w/u med/surg Subjective ROS Limited/Unobtainable: No Interval Events: doing better, passing gas Allergies: Coded Allergies: CODEINE (Unverified Allergy, Severe, Hives, 11/13/13) Objective Last 24 Hour Vital Signs Date Time Temp Pulse Resp B/P Pulse Ox O2 Delivery O2 Flow Rate FiO2 05/07/16 12:52 98.4 05/07/16 12:00 99.0 80 18 171/93 98 Room Air 05/07/16 08:16 88 160/92 05/07/16 08:16 160/92 05/07/16 08:15 88 160/92 05/07/16 08:00 100.7 69 18 160/92 96 Room Air 05/07/16 08:00 73 05/07/16 04:30 97.9 74 20 167/77 94 Room Air 05/07/16 04:00 66 05/07/16 01:00 90 182/98 05/07/16 00:00 78 05/07/16 00:00 97.0 66 20 182/98 96 Room Air 05/06/16 20:00 79 05/06/16 20:00 77 18 188/95 100 Room Air 05/06/16 19:03 203/100 05/06/16 16:00 79 05/06/16 16:00 98.1 85 20 203/100 96 Room Air Intake and Output 05/06/16 05/07/16 19:00 07:00 Intake Total 836 ml 825 ml Output Total 300 ml Balance 536 ml 825 ml Intake Oral 0 ml IV Total 836 ml 825 ml Output Urine Total 300 ml # Voids 2 # Bowel Movements 1 General Appearance: WD/WN HEENT: normocephalic, atraumatic Respiratory/Chest: chest wall non-tender, lungs clear Cardiovascular: normal peripheral pulses, normal rate Abdomen: normal bowel sounds Extremities: no cyanosis Skin: no rash Microbiology Date/Time Source Procedure Growth Status 05/06/16 03:34 Urine,Clean Catch Urine Culture - Preliminary Mixed Gram Positive Organism Resulted Laboratory Tests 05/07/16 07:25: White Blood Count 7.1, Red Blood Count 3.88L, Hemoglobin 10.8L, Hematocrit 36.8L , Mean Corpuscular Volume 95, Mean Corpuscular Hemoglobin 27.8, Mean Corpuscular Hemoglobin Concent 29.3L, Red Cell Distribution Width 19.4H, Platelet Count 159, Mean Platelet Volume 10.6H, Neutrophils (%) (Auto) 68.9, Lymphocytes (%) (Auto) 23.1, Monocytes (%) (Auto) 7.3, Eosinophils (%) (Auto) 0.1, Basophils (%) (Auto) 0.7, Activated Partial Thromboplast Time 27, Sodium Level 144, Potassium Level 3.6, Chloride Level 99, Carbon Dioxide Level 31H, Anion Gap 14, Blood Urea Nitrogen 14, Creatinine 0.7, Estimat Glomerular Filtration Rate > 60, Glucose Level 102#, Calcium Level 9.9, Total Bilirubin 0.8 , Aspartate Amino Transf (AST/SGOT) 22, Alanine Aminotransferase (ALT/SGPT) 8, Alkaline Phosphatase 69, Total Protein 7.3, Albumin 4.0, Globulin 3.3, Albumin/ Globulin Ratio 1.2, Amylase Level 62, Lipase 16 Current Medications Medications (Trade) Dose Ordered Sig/Talita Route PRN Reason Start Time Stop Time Status Last Admin Dose Admin Acetaminophen (Tylenol) 650 mg Q4H PRN ORAL fever 05/06/16 15:15 06/05/16 15:14 Al Hydroxide/Mg Hydroxide (Mylanta II) 30 ml Q6H PRN ORAL dyspepsia 05/06/16 15:30 06/05/16 15:29 Amlodipine Besylate (Norvasc) 10 mg DAILY ORAL 05/07/16 09:00 06/06/16 08:59 05/07/16 08:15 Dextrose (Dextrose 50%) STAT PRN IV Hypoglycemia 05/06/16 15:30 06/05/16 15:29 Dextrose/Sodium Chloride (D5 0.45% NS) 1,000 ml @ 75 mls/hr [id number] IV 05/06/16 15:30 06/05/16 15:29 05/07/16 05:56 Diphenhydramine HCl (Benadryl) 25 mg Q6H PRN ORAL Itching/Pruritis 05/06/16 15:30 06/05/16 15:29 Enalaprilat (Vasotec) 2.5 mg Q4H PRN IV sbp more than 200 05/06/16 18:30 06/05/16 18:29 05/06/16 19:03 Heparin Sodium (Porcine) (Heparin 5000 units/ml) 5,000 units EVERY 12 HOURS SUBQ 05/06/16 21:00 06/05/16 20:59 05/07/16 08:19 Hydralazine HCl (Apresoline) 20 mg Q4H PRN IV sbp more than 160 05/06/16 18:30 06/05/16 18:29 Labetalol HCl (Normodyne) 20 mg EVERY HOUR PRN IV SBP more than 180 05/06/16 18:30 06/05/16 18:29 05/07/16 01:00 Losartan Potassium (Cozaar) 50 mg DAILY ORAL 05/07/16 09:00 06/06/16 08:59 05/07/16 08:16 Metoprolol Succinate (Toprol XL) 25 mg DAILY ORAL 05/07/16 09:00 06/06/16 08:59 05/07/16 08:16 Morphine Sulfate (Morphine Sulfate) 2 mg Q4H PRN IVP severe Pain (Pain Scale 7-10) 05/06/16 15:30 05/13/16 15:29 05/07/16 12:22 Nitroglycerin (Ntg) 0.4 mg Q5M X 3 DOSES PRN SL Prn Chest Pain 05/06/16 14:45 06/05/16 14:44 Ondansetron HCl (Zofran) 4 mg Q6H PRN IVP Nausea & Vomiting 05/06/16 15:30 06/05/16 15:29 Pantoprazole (Protonix) 40 mg DAILY IVP 05/07/16 09:00 06/06/16 08:59 05/07/16 08:16 Polyethylene Glycol (Miralax) 17 gm HSPRN PRN ORAL Constipation 05/06/16 15:30 06/05/16 15:29 Promethazine HCl (Phenergan) 25 mg Q6H PRN IM Nausea & Vomiting 05/06/16 16:00 06/05/16 15:59 05/07/16 08:14 Temazepam (Restoril) 15 mg HSPRN PRN ORAL Insomnia 05/06/16 15:30 05/13/16 15:29 KATHERINE ARANA 14, 2017 15:48
[2016-05-08] VITALS (7 sets, daily range): BP systolic 145–182; BP diastolic 71–89
[2016-05-08] MEDS: Morphine Sulfate 2mg/ml Inj IVP PRN ×2 (00:03→08:29)
[2016-05-08 07:41] LABS: BASOPHILS % (AUTO) 0.6 % (0.0-2.0); EOSINOPHILS % (AUTO) 0.2 % (0.0-3.0); LYMPHOCYTES % (AUTO) 35.7 % (20.0-45.0); MEAN CORPUSCULAR HEMOGLOBIN 28.1 PG (27.0-31.0); MEAN CORPUSCULAR HGB CONC 29.7 G/DL (32.0-36.0); MEAN CORPUSCULAR VOLUME 95 FL (80-99); MEAN PLATELET VOLUME 10.5 FL (6.5-10.1); MONOCYTES % (AUTO) 8.4 % (1.0-10.0); NEUTROPHILS % (AUTO) 55.1 % (45.0-75.0); PLATELET COUNT 143 K/UL (150-450); RED BLOOD COUNT 4.03 M/UL (4.20-5.40); RED CELL DISTRIBUTION WIDTH 18.8 % (11.6-14.8); WHITE BLOOD COUNT 6.7 K/UL (4.8-10.8)
[2016-05-08] MEDS: D5 1/2NS 1,000 ML IV SCH ×2 (08:28→20:13)
[2016-05-08] MEDS: Pantoprazole Inj IVP SCH (08:29)
[2016-05-08] MEDS: Losartan 50mg tab ORAL SCH (08:29)
[2016-05-08] MEDS: Heparin 5000 units/ml inj SUBQ SCH ×2 (08:40→20:12)
--- NOTE | 2016-05-08 11:45 | GI Progress Note ---
Assessment/Plan Problems: (1) Abdominal pain ICD Codes: R10.9 - Unspecified abdominal pain SNOMED: [id number] Qualifiers: Qualified Codes: R10.84 - Generalized abdominal pain (2) SBO (small bowel obstruction) ICD Codes: K56.69 - Other intestinal obstruction SNOMED: 645492587 (3) Anemia ICD Codes: D64.9 - Anemia, unspecified SNOMED: 834190470 (4) Pancreatitis ICD Codes: K85.90 - Acute pancreatitis without necrosis or infection, unspecified SNOMED: 66345945 Qualifiers: Qualified Codes: K85.90 - Acute pancreatitis without necrosis or infection, unspecified Status: stable Status Narrative Discussed with Dr. Benitez. Assessment/Plan repeat lipase levels >> WNL fu surgical recs >> Imp high grade bowel obstruction, most likely to pelvic adhesions. - Continue NG, bowel rest, IV hydration. bowel decompression >> maintain NGT to LCIS maintain NPO + IVFs SB xrays today PPI fu labs Subjective Gastrointestinal/Abdominal: Reports: abdomen distended - improved Objective Last 24 Hour Vital Signs Date Time Temp Pulse Resp B/P Pulse Ox O2 Delivery O2 Flow Rate FiO2 05/08/16 11:35 97.9 85 18 182/89 93 Room Air 05/08/16 08:29 91 163/89 05/08/16 08:29 163/89 05/08/16 08:29 91 163/89 05/08/16 08:05 99.1 91 18 163/89 94 Room Air 05/08/16 06:00 99 158/85 05/08/16 04:49 165/75 05/08/16 04:00 97.0 72 20 165/75 95 Room Air 05/08/16 04:00 94 05/08/16 02:52 91 05/08/16 00:00 97.8 80 18 145/71 96 Room Air 05/07/16 22:43 196/92 05/07/16 20:49 85 193/99 05/07/16 20:00 98.2 71 20 196/95 96 Room Air 05/07/16 16:33 76 182/94 05/07/16 16:00 98.2 76 21 181/94 100 Room Air 05/07/16 12:52 98.4 05/07/16 12:00 99.0 80 18 171/93 98 Room Air Intake and Output 05/07/16 05/08/16 19:00 07:00 Intake Total 600 ml 879 ml Output Total 90 ml Balance 600 ml 789 ml Intake Oral 0 ml IV Total 600 ml 879 ml Other 90 ml # Voids 2 2 Laboratory Tests Test 05/08/16 05:25 White Blood Count 6.7 K/UL (4.8-10.8) Red Blood Count 4.03 M/UL (4.20-5.40) L Hemoglobin 11.3 G/DL (12.0-16.0) L Hematocrit 38.2 % (37.0-47.0) Mean Corpuscular Volume 95 FL (80-99) Mean Corpuscular Hemoglobin 28.1 PG (27.0-31.0) Mean Corpuscular Hemoglobin Concent 29.7 G/DL (32.0-36.0) L Red Cell Distribution Width 18.8 % (11.6-14.8) H Platelet Count 143 K/UL (150-450) L Mean Platelet Volume 10.5 FL (6.5-10.1) H Neutrophils (%) (Auto) 55.1 % (45.0-75.0) Lymphocytes (%) (Auto) 35.7 % (20.0-45.0) Monocytes (%) (Auto) 8.4 % (1.0-10.0) Eosinophils (%) (Auto) 0.2 % (0.0-3.0) Basophils (%) (Auto) 0.6 % (0.0-2.0) Iron Level 80 ug/dL (37-145) Total Iron Binding Capacity 303 ug/dL (250-400) Percent Iron Saturation 26 % (15-50) Unsaturated Iron Binding 223 ug/dL (112-346) Carcinoembryonic Antigen 4.0 ng/mL H CA 19-9 Antigen 39.58 U/mL (< 37) H Vitamin B12 Level 439 pg/mL (211-946) Folate Pending Height (Feet): 5 Height (Inches): 6.00 Weight (Pounds): 165 General Appearance: no apparent distress, alert Cardiovascular: normal rate Respiratory/Chest: normal breath sounds, no respiratory distress Abdominal Exam: normal bowel sounds, non tender, distended - improved Objective Patient passed gas yesterday per . no BM Rodriguez,Luz Marina Idris N.P. May 08, 2016 11:45
--- NOTE | 2016-05-08 12:01 | Diagnostic Imaging Report ---
Indication: Post nasogastric tube placement Technique: Supine view of the abdomen Comparison: 05/07/2016 Findings: Interim placement of nasogastric tube, tip projected in good position at the level gastric body. There is decreased distention of small bowel by gas. Impression: Satisfactory nasogastric intubation Decreased small bowel distention This agrees with the preliminary interpretation provided overnight by [facility] teleradiology service.
--- NOTE | 2016-05-08 12:09 | General Progress Note ---
Progress Note Progress Note Surgery Patient seen and examined. Doing well. States pain improved. no n/v/f/c. Abd exam soft, non tender, mild distention. Labs nml Reviewed 30 minute films from gi study and contrast moving quickly and well. lots of air in rectum. pending final films. hopefully contrast will end up in rectum. hopefully resolving sbo. if later films demonstrate blockage will need to plan operative intervention. continue current care and management for now Dillan Plummer May 08, 2016 12:09
--- NOTE | 2016-05-08 17:05 | Diagnostic Imaging Report ---
Indication: Abdominal pain, small bowel obstruction demonstrated on prior CT Technique: Water-soluble contrast given per nasogastric tube. 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 Bowel gas pattern is unremarkable. Upon injection of contrast, there is rapid transit of contrast in the small bowel. Transit of most of the small bowel is seen at 15 minutes. The colon is probably visible at 30 minutes, and definitely visible at 45 minutes and one hour. Small bowel loops are normal in caliber. No gross mucosal abnormalities. Impression: Rapid transit of contrast through nondilated small bowel, reaching the colon by 30 minutes. This indicates resolution of previously reported small bowel obstruction Other findings as noted Findings were discussed by phone previously with Dr. Wilkerson
[2016-05-09 00:12] VITALS: BP 157/86
[2016-05-09 04:14] VITALS: BP 164/92
[2016-05-09 07:56] VITALS: BP 156/84
[2016-05-09 08:52] LABS: BASOPHILS % (AUTO) 0.8 % (0.0-2.0); EOSINOPHILS % (AUTO) 0.3 % (0.0-3.0); LYMPHOCYTES % (AUTO) 27.8 % (20.0-45.0); MEAN CORPUSCULAR HEMOGLOBIN 28.3 PG (27.0-31.0); MEAN CORPUSCULAR HGB CONC 29.7 G/DL (32.0-36.0); MEAN CORPUSCULAR VOLUME 95 FL (80-99); MEAN PLATELET VOLUME 9.4 FL (6.5-10.1); NEUTROPHILS % (AUTO) 60.2 % (45.0-75.0); PLATELET COUNT 141 K/UL (150-450); RED BLOOD COUNT 3.74 M/UL (4.20-5.40); RED CELL DISTRIBUTION WIDTH 18.7 % (11.6-14.8); WHITE BLOOD COUNT 6.3 K/UL (4.8-10.8)
[2016-05-09 09:00] LABS: ANION GAP 14 (5-15); CALCIUM 9.3 mg/dL (8.6-10.2); CARBON DIOXIDE 30 mEQ/L (20-30); CHLORIDE 99 mEQ/L (98-107); CREATININE 0.6 mg/dL (0.5-0.9); GLOMERULAR FILTRATION RATE > 60 mL/min (>60); HEMOLYSIS 12; POTASSIUM 3.1 mEQ/L (3.4-4.9); SODIUM 143 mEQ/L (135-145)
[2016-05-09] MEDS: Pantoprazole Inj IVP SCH (09:51)
[2016-05-09] MEDS: Losartan 50mg tab ORAL SCH (09:52)
[2016-05-09] MEDS: Heparin 5000 units/ml inj SUBQ SCH ×2 (09:52→21:42)
[2016-05-09] MEDS: D5 1/2NS 1,000 ML IV SCH ×2 (10:22→23:30)
[2016-05-09 11:31] VITALS: BP 160/83
--- NOTE | 2016-05-09 11:37 | General Progress Note ---
Progress Note Progress Note Afebrile. Awake and alert. The UGI-SBFT showed rapid passage of contrast into the colon. She is having BMs. We will remove NG tube and start a full liquid diet. Suresh Matos MD May 09, 2016 11:37
--- NOTE | 2016-05-09 14:55 | Pulmonology Progress Note ---
Assessment/Plan Problems: (1) SBO (small bowel obstruction) (2) Abdominal pain Assessment/Plan tolerating diet check electroltyes anemia w/u, hematology called for abnormal tumor markers. med/surg Subjective ROS Limited/Unobtainable: No Interval Events: improving, eating Allergies: Coded Allergies: CODEINE (Unverified Allergy, Severe, Hives, 11/13/13) Objective Last 24 Hour Vital Signs Date Time Temp Pulse Resp B/P Pulse Ox O2 Delivery O2 Flow Rate FiO2 05/09/16 12:00 105 05/09/16 11:31 99.0 93 18 160/83 94 Room Air 05/09/16 09:52 89 156/84 05/09/16 09:52 156/84 05/09/16 09:51 89 156/84 05/09/16 08:00 92 05/09/16 07:56 98.2 89 18 156/84 94 Room Air 05/09/16 04:14 98.7 95 19 164/92 98 Room Air 05/09/16 04:00 102 05/09/16 03:37 164/93 05/09/16 00:12 98.2 97 19 157/86 96 Room Air 05/09/16 00:00 85 05/08/16 22:54 170/93 05/08/16 20:00 98.6 86 20 164/82 93 Room Air 05/08/16 20:00 86 05/08/16 16:00 98.2 87 20 145/83 100 Room Air 05/08/16 16:00 87 Intake and Output 05/08/16 05/09/16 19:00 07:00 Intake Total 600 ml 884 ml Balance 600 ml 884 ml IV Total 600 ml 884 ml # Voids 2 # Bowel Movements 4 1 General Appearance: WD/WN HEENT: normocephalic Respiratory/Chest: chest wall non-tender, lungs clear Cardiovascular: normal peripheral pulses, normal rate Abdomen: normal bowel sounds, soft, non tender Extremities: no cyanosis Skin: no rash Microbiology Date/Time Source Procedure Growth Status 05/08/16 14:15 Stool Clostridium difficile Toxin Assay - Final Complete Laboratory Tests 05/09/16 07:16: White Blood Count 6.3, Red Blood Count 3.74L, Hemoglobin 10.6L, Hematocrit 35.7L , Mean Corpuscular Volume 95, Mean Corpuscular Hemoglobin 28.3, Mean Corpuscular Hemoglobin Concent 29.7L, Red Cell Distribution Width 18.7H, Platelet Count 141L, Mean Platelet Volume 9.4, Neutrophils (%) (Auto) 60.2, Lymphocytes (%) (Auto) 27.8, Monocytes (%) (Auto) 11.0H, Eosinophils (%) (Auto) 0.3, Basophils (%) (Auto) 0.8, Sodium Level 143, Potassium Level 3.1L, Chloride Level 99, Carbon Dioxide Level 30, Anion Gap 14, Blood Urea Nitrogen 11, Creatinine 0.6, Estimat Glomerular Filtration Rate > 60, Glucose Level 106, Calcium Level 9.3 Current Medications Medications (Trade) Dose Ordered Sig/Talita Route PRN Reason Start Time Stop Time Status Last Admin Dose Admin Acetaminophen (Tylenol) 650 mg Q4H PRN ORAL fever 05/06/16 15:15 06/05/16 15:14 Al Hydroxide/Mg Hydroxide (Mylanta II) 30 ml Q6H PRN ORAL dyspepsia 05/06/16 15:30 06/05/16 15:29 Amlodipine Besylate (Norvasc) 10 mg DAILY ORAL 05/07/16 09:00 06/06/16 08:59 05/09/16 09:51 Clonidine HCl 0.1 mg 0.1 mg Q6H PRN ORAL For High Blood Pressure 05/07/16 23:30 06/06/16 23:29 Dextrose (Dextrose 50%) STAT PRN IV Hypoglycemia 05/06/16 15:30 06/05/16 15:29 Dextrose/Sodium Chloride (D5 0.45% NS) 1,000 ml @ 75 mls/hr [id number] IV 05/06/16 15:30 06/05/16 15:29 05/09/16 10:22 Diphenhydramine HCl (Benadryl) 25 mg Q6H PRN ORAL Itching/Pruritis 05/06/16 15:30 06/05/16 15:29 Enalaprilat (Vasotec) 2.5 mg Q4H PRN IV sbp more than 200 05/06/16 18:30 06/05/16 18:29 05/06/16 19:03 Heparin Sodium (Porcine) (Heparin 5000 units/ml) 5,000 units EVERY 12 HOURS SUBQ 05/06/16 21:00 06/05/16 20:59 05/08/16 20:12 Hydralazine HCl (Apresoline) 20 mg Q4H PRN IV sbp more than 160 05/06/16 18:30 06/05/16 18:29 05/09/16 03:37 Labetalol HCl (Normodyne) 20 mg EVERY HOUR PRN IV SBP more than 180 05/06/16 18:30 06/05/16 18:29 05/07/16 20:49 Losartan Potassium (Cozaar) 50 mg DAILY ORAL 05/07/16 09:00 06/06/16 08:59 05/09/16 09:52 Metoprolol Succinate (Toprol XL) 25 mg DAILY ORAL 05/07/16 09:00 06/06/16 08:59 05/09/16 09:52 Morphine Sulfate (Morphine Sulfate) 2 mg Q4H PRN IVP severe Pain (Pain Scale 7-10) 05/06/16 15:30 05/13/16 15:29 05/08/16 08:29 Nitroglycerin (Ntg) 0.4 mg Q5M X 3 DOSES PRN SL Prn Chest Pain 05/06/16 14:45 06/05/16 14:44 Ondansetron HCl (Zofran) 4 mg Q6H PRN IVP Nausea & Vomiting 05/06/16 15:30 06/05/16 15:29 05/09/16 09:51 Pantoprazole (Protonix) 40 mg DAILY IVP 05/07/16 09:00 06/06/16 08:59 05/09/16 09:51 Polyethylene Glycol (Miralax) 17 gm HSPRN PRN ORAL Constipation 05/06/16 15:30 06/05/16 15:29 Potassium Chloride (KCl 10mEq/100ml Premix) 100 ml @ 100 mls/hr Q1H IVPB 05/09/16 15:00 05/09/16 18:59 05/09/16 14:47 Promethazine HCl (Phenergan) 25 mg Q6H PRN IM Nausea & Vomiting 05/06/16 16:00 06/05/16 15:59 05/08/16 20:12 Temazepam (Restoril) 15 mg HSPRN PRN ORAL Insomnia 05/06/16 15:30 05/13/16 15:29 KATHERINE ARANA May 09, 2016 14:55
--- NOTE | 2016-05-09 15:35 | General Progress Note ---
Assessment/Plan Problem List: (1) SBO (small bowel obstruction) ICD Codes: K56.69 - Other intestinal obstruction SNOMED: 928127367 Assessment/Plan SBFT reviewed on diet per surg fu Subjective ROS Limited/Unobtainable: Yes Allergies: Coded Allergies: CODEINE (Unverified Allergy, Severe, Hives, 11/13/13) All Systems: reviewed and negative except above Subjective had BM Objective Last 24 Hour Vital Signs Date Time Temp Pulse Resp B/P Pulse Ox O2 Delivery O2 Flow Rate FiO2 05/09/16 12:00 105 05/09/16 11:31 99.0 93 18 160/83 94 Room Air 05/09/16 09:52 89 156/84 05/09/16 09:52 156/84 05/09/16 09:51 89 156/84 05/09/16 08:00 92 05/09/16 07:56 98.2 89 18 156/84 94 Room Air 05/09/16 04:14 98.7 95 19 164/92 98 Room Air 05/09/16 04:00 102 05/09/16 03:37 164/93 05/09/16 00:12 98.2 97 19 157/86 96 Room Air 05/09/16 00:00 85 05/08/16 22:54 170/93 05/08/16 20:00 98.6 86 20 164/82 93 Room Air 05/08/16 20:00 86 05/08/16 16:00 98.2 87 20 145/83 100 Room Air 05/08/16 16:00 87 Intake and Output 05/08/16 05/09/16 19:00 07:00 Intake Total 600 ml 884 ml Balance 600 ml 884 ml IV Total 600 ml 884 ml # Voids 2 # Bowel Movements 4 1 Laboratory Tests 05/09/16 07:16: White Blood Count 6.3, Red Blood Count 3.74L, Hemoglobin 10.6L, Hematocrit 35.7L , Mean Corpuscular Volume 95, Mean Corpuscular Hemoglobin 28.3, Mean Corpuscular Hemoglobin Concent 29.7L, Red Cell Distribution Width 18.7H, Platelet Count 141L, Mean Platelet Volume 9.4, Neutrophils (%) (Auto) 60.2, Lymphocytes (%) (Auto) 27.8, Monocytes (%) (Auto) 11.0H, Eosinophils (%) (Auto) 0.3, Basophils (%) (Auto) 0.8, Sodium Level 143, Potassium Level 3.1L, Chloride Level 99, Carbon Dioxide Level 30, Anion Gap 14, Blood Urea Nitrogen 11, Creatinine 0.6, Estimat Glomerular Filtration Rate > 60, Glucose Level 106, Calcium Level 9.3 Height (Feet): 5 Height (Inches): 6.00 Weight (Pounds): 165 General Appearance: alert EENT: normal ENT inspection Neck: supple Cardiovascular: normal rate Respiratory/Chest: decreased breath sounds Abdomen: normal bowel sounds, non tender, soft Extremities: non-tender VILMA LUIS May 09, 2016 15:35
[2016-05-09 16:00] VITALS: BP 157/88
[2016-05-09 20:00] VITALS: BP 128/71
[2016-05-10] VITALS: BP 144/68
[2016-05-10 04:00] VITALS: BP 148/75
--- NOTE | 2016-05-10 05:08 | Consultation ---
DATE OF CONSULTATION: HEMATOLOGY/ONCOLOGY CONSULTATION REASON FOR CONSULTATION: Abnormal tumor markers and anemia. CURRENT COMPLAINT/HISTORY OF PRESENT ILLNESS: Today, I had an opportunity to see this patient who is a 65-year-old delightful female with past medical history remarkable for nausea, vomiting, abdominal distention, history of hypertension, history of previous hysterectomy. During the patient developed small bowel obstruction. During the first evaluation, it was found that the patient developed increased CA 19-9 as well as increased CEA level. It was also found that the patient developed anemia. Myself was called to handle the issue of blood dyscrasia. PAST MEDICAL HISTORY: 1. Coronary artery disease. 2. Status post stent placement. 3. Hypertension. 4. Status post hysterectomy. 5. History of urinary tract infection. ALLERGIES: Codeine. FAMILY HISTORY: Noncontributory. SOCIAL HISTORY: No history of smoking. No history of alcohol abuse. No history of illicit drug use. REVIEW OF SYSTEMS: General: The patient is not in acute distress. . RESPIRATORY: Mild shortness of breath. Gastrointestinal: The patient complains of constipation. The patient has abdominal pain. The patient was diagnosed to have small bowel obstruction, resolving at this point. LABORATORY DATA: 4.3, CA 19-9 39.54. Creatinine 1.7. WBC 6.6, hemoglobin 10.6, hematocrit 35.7, and platelets 141,000. Stool for occult blood is positive. IMPRESSION: 1. Anemia, secondary to gastrointestinal bleed. 2. Anemia of chronic disease. 3. Increased carcinoembryonic antigen, rule out gastrointestinal cancer. 4. Increased cancer antigen 19-9, rule out pancreatic cancer. 5. History of coronary artery disease. 6. Status post percutaneous transluminal coronary angioplasty. 7. Small bowel obstruction, resolving. 8. Abdominal pain. 9. Anemia of chronic disease. 10. . 11. Skin care. 12. Nutrition. 13. GI followup. 14. Possible ERCP/MRCP. 15. Recheck tumor markers. 16. Close followup. Jacob Storm Calderon DR: JORGE JOB#: [id number] CC:
[2016-05-10] MEDS ORDERED: Metoprolol 25mg tab ORAL PRN (07:15)
[2016-05-10] MEDS ORDERED: Nitroglycerin Subl 0.4mg tab (Bottle Of 25) SL PRN (07:15)
[2016-05-10] MEDS ORDERED: Morphine Sulfate 2mg/ml Inj IVP PRN (07:30)
[2016-05-10] MEDS ORDERED: Labetalol 5mg/ml 20ml vial IV PRN (08:00)
[2016-05-10 08:18] VITALS: BP 144/74
[2016-05-10] MEDS ORDERED: Aspirin Baby 81mg ORAL SCH (09:00)
[2016-05-10] MEDS ORDERED: Metoprolol 25mg tab ORAL SCH (09:00)
[2016-05-10] MEDS: Heparin 5000 units/ml inj SUBQ SCH ×2 (09:00→21:00)
[2016-05-10] MEDS ORDERED: Mylanta II UD 30ml ORAL PRN (09:30)
[2016-05-10] MEDS ORDERED: NS Irrig 1000ml ONE (09:54)
[2016-05-10] MEDS ORDERED: D5 1/2NS 1000ml IV ONE (09:54)
[2016-05-10] MEDS ORDERED: Tubing IV Secondary IV ONE (09:54)
[2016-05-10] MEDS: D5 1/2NS 1,000 ML IV SCH ×2 (10:16→22:17)
[2016-05-10] MEDS: Losartan 50mg tab ORAL SCH (10:17)
[2016-05-10] MEDS: Pantoprazole Inj IVP SCH (10:17)
[2016-05-10] MEDS ORDERED: Enalaprilat 2.5mg/2ml Inj IV PRN (10:30)
--- NOTE | 2016-05-10 10:46 | General Progress Note ---
Progress Note Progress Note Afebrile. Pt c/o nausea this AM. Abdomen is mildly distended but soft. We will keep her on full liquids, will have her ambulate in hallway. Suresh Matos MD May 10, 2016 10:46
[2016-05-10 11:39] VITALS: BP 130/76
--- NOTE | 2016-05-10 11:59 | General Progress Note ---
Assessment/Plan Problem List: (1) SBO (small bowel obstruction) ICD Codes: K56.69 - Other intestinal obstruction SNOMED: 567376898 (2) Occult blood in stools ICD Codes: R19.5 - Other fecal abnormalities SNOMED: 98911018, 970221462 (3) Abdominal pain ICD Codes: R10.9 - Unspecified abdominal pain SNOMED: 72960161 Qualifiers: Qualified Codes: R10.84 - Generalized abdominal pain Assessment/Plan SBFT reviewed on diet per surg needs EGD and colonoscopy when SBO is completely resolved Subjective ROS Limited/Unobtainable: Yes Allergies: Coded Allergies: CODEINE (Unverified Allergy, Severe, Hives, 11/13/13) Subjective c/o nausea Objective Last 24 Hour Vital Signs Date Time Temp Pulse Resp B/P Pulse Ox O2 Delivery O2 Flow Rate FiO2 05/10/16 11:39 98.4 79 15 130/76 98 Room Air 05/10/16 10:17 144/74 05/10/16 10:17 75 144/74 05/10/16 10:16 75 144/74 05/10/16 08:18 98.2 75 16 144/74 95 Room Air 05/10/16 04:00 97.5 64 18 148/75 98 Room Air 05/10/16 03:38 73 05/10/16 00:00 97.7 63 18 144/68 98 Room Air 05/09/16 23:43 64 05/09/16 20:00 98.4 72 21 128/71 96 Room Air 05/09/16 20:00 82 05/09/16 18:25 157/88 05/09/16 16:00 92 05/09/16 16:00 98.4 90 20 157/88 96 Room Air 05/09/16 12:00 105 Intake and Output 05/09/16 05/10/16 19:00 07:00 Intake Total 225 ml 1050 ml Balance 225 ml 1050 ml Intake Oral 300 ml IV Total 225 ml 750 ml # Voids 1 4 # Bowel Movements 1 Laboratory Tests 05/10/16 06:30: Carcinoembryonic Antigen 3.8H Height (Feet): 5 Height (Inches): 6.00 Weight (Pounds): 165 General Appearance: alert EENT: normal ENT inspection Neck: supple Cardiovascular: normal rate Respiratory/Chest: decreased breath sounds Abdomen: soft, decreased bowel sounds, distended Extremities: non-tender VILMA LUIS May 10, 2016 11:59
--- NOTE | 2016-05-10 14:59 | Pulmonology Progress Note ---
Assessment/Plan Assessment/Plan ASSESSMENT high garde SBO - resolved abdominal pain pancreatitis anemia elevated CA19-9 positive stool for occult blood PLAN OF CARE initially NPO bowel rest IVF bowel decompression with NGT surgery and GI follow series of KUB resolving SBO started on CL and advanced to FL, tolerates c/o gas add Simethicone as needed advance diet to soft as tolerated patient wants to go home elevated CA 19-9 onco consult requested to r/o pancreatic Ca lipase down to normal per GI - when SBO completely resolved -will need EGD and colon ( stool OB + x 1 ) DVT GI prophylaxis BP management with current regimen and optimize as needed possible dc tomorrow if cleared by surgery case discussed and evaluated by supervising physician Subjective Allergies: Coded Allergies: CODEINE (Unverified Allergy, Severe, Hives, 11/13/13) Subjective no abdominal pain, lots of gas tolerated FL diet afebrile, no leukocytosis Objective Last 24 Hour Vital Signs Date Time Temp Pulse Resp B/P Pulse Ox O2 Delivery O2 Flow Rate FiO2 05/10/16 11:39 98.4 79 15 130/76 98 Room Air 05/10/16 10:17 144/74 05/10/16 10:17 75 144/74 05/10/16 10:16 75 144/74 05/10/16 08:18 98.2 75 16 144/74 95 Room Air 05/10/16 04:00 97.5 64 18 148/75 98 Room Air 05/10/16 03:38 73 05/10/16 00:00 97.7 63 18 144/68 98 Room Air 05/09/16 23:43 64 05/09/16 20:00 98.4 72 21 128/71 96 Room Air 05/09/16 20:00 82 05/09/16 18:25 157/88 05/09/16 16:00 92 05/09/16 16:00 98.4 90 20 157/88 96 Room Air Intake and Output 05/09/16 05/10/16 19:00 07:00 Intake Total 225 ml 1050 ml Balance 225 ml 1050 ml Intake Oral 300 ml IV Total 225 ml 750 ml # Voids 1 4 # Bowel Movements 1 General Appearance: WD/WN, no acute distress, other - A/A/O x 3 AA female HEENT: normocephalic, atraumatic, anicteric Respiratory/Chest: lungs clear, no respiratory distress, no accessory muscle use Cardiovascular: normal peripheral pulses, normal rate, no JVD Abdomen: normal bowel sounds, soft, non tender, non distended Genitourinary: normal external genitalia Extremities: no edema 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, no motor/sensory deficits, alert, oriented x 3, responsive Musculoskeletal: normal muscle bulk Microbiology Date/Time Source Procedure Growth Status 05/08/16 14:15 Stool Clostridium difficile Toxin Assay - Final Complete Laboratory Tests 05/10/16 06:30: Carcinoembryonic Antigen 3.8H Current Medications Medications (Trade) Dose Ordered Sig/Talita Route PRN Reason Start Time Stop Time Status Last Admin Dose Admin Acetaminophen (Tylenol) 650 mg Q4H PRN ORAL fever 05/10/16 11:15 06/09/16 11:14 Al Hydroxide/Mg Hydroxide (Mylanta II) 30 ml Q6H PRN ORAL dyspepsia 05/10/16 09:30 06/09/16 09:29 Amlodipine Besylate (Norvasc) 10 mg DAILY ORAL 05/10/16 09:00 06/09/16 08:59 05/10/16 10:17 Clonidine HCl (Catapres) 0.1 mg BID GT 05/10/16 09:00 06/09/16 08:59 Clonidine HCl (Catapres) 0.1 mg Q6H PRN ORAL For High Blood Pressure 05/10/16 11:30 06/09/16 11:29 Dextrose (Dextrose 50%) STAT PRN IV Hypoglycemia 05/10/16 15:30 06/09/16 15:29 Dextrose/Sodium Chloride (D5 0.45% NS) 1,000 ml @ 75 mls/hr [id number] IV 05/10/16 09:00 06/09/16 08:59 05/10/16 10:16 Diphenhydramine HCl (Benadryl) 25 mg Q6H PRN ORAL Itching/Pruritis 05/10/16 09:30 06/09/16 09:29 Enalaprilat (Vasotec) 2.5 mg Q4H PRN IV sbp more than 200 05/10/16 10:30 06/09/16 10:29 Heparin Sodium (Porcine) (Heparin 5000 units/ml) 5,000 units EVERY 12 HOURS SUBQ 05/10/16 09:00 06/09/16 08:59 Losartan Potassium (Cozaar) 50 mg DAILY ORAL 05/10/16 09:00 06/09/16 08:59 05/10/16 10:17 Metoprolol Succinate (Toprol XL) 25 mg DAILY ORAL 05/10/16 09:00 06/09/16 08:59 05/10/16 10:16 Morphine Sulfate (Morphine Sulfate) 2 mg Q4H PRN IVP severe Pain (Pain Scale 7-10) 05/10/16 07:30 05/17/16 07:29 Nitroglycerin (Ntg) 0.4 mg Q5M X 3 DOSES PRN SL Prn Chest Pain 05/10/16 07:15 06/09/16 07:14 Ondansetron HCl (Zofran) 4 mg Q6H PRN IVP Nausea & Vomiting 05/10/16 09:30 06/09/16 09:29 05/10/16 10:16 Pantoprazole (Protonix) 40 mg DAILY IVP 05/10/16 09:00 06/09/16 08:59 05/10/16 10:17 Polyethylene Glycol (Miralax) 17 gm HSPRN PRN ORAL Constipation 05/10/16 15:30 06/09/16 15:29 Promethazine HCl (Phenergan) 25 mg Q6H PRN IM Nausea & Vomiting 05/10/16 10:00 06/09/16 09:59 Simethicone (Mylicon) 80 mg QID PRN ORAL gas pain 05/10/16 14:45 06/09/16 14:44 Temazepam (Restoril) 15 mg HSPRN PRN ORAL Insomnia 05/10/16 15:30 05/17/16 15:29 Carlton (Marymohinder)Aylin NP May 10, 2016 14:59
[2016-05-10] MEDS ORDERED: Miralax 17gm pkt ORAL PRN (15:30)
[2016-05-10 16:00] VITALS: BP 157/80
[2016-05-10] MEDS: Simethicone 80mg tab ORAL PRN (18:02)
[2016-05-10 20:00] VITALS: BP 118/68
[2016-05-11] VITALS: BP 143/78
--- NOTE | 2016-05-11 03:58 | Progress Note ---
DATE: 05/10/2016 SUBJECTIVE: The patient is in the room. Calm. Afebrile. No distress. Comfortable. MEDICATIONS: 1. Dextrose. 2. MiraLAX. 3. Restoril. 4. Catapres. 5. Tylenol. 6. Phenergan. 7. Zofran. 8. Clonidine. 9. Heparin subcutaneously. PHYSICAL EXAMINATION: VITAL SIGNS: T-max 97 degrees, respiratory rate 20, heart rate 80, and blood pressure 130/80. HEENT: Head, normocephalic and atraumatic. NECK: Supple. No thyroid enlargement. No lymphadenopathy. HEART: S1 and S2 regular. ABDOMEN: Soft and benign. No organomegaly present. Bowel sounds present. EXTREMITIES: No cyanosis, clubbing, or edema. LABORATORY DATA: WBC 7.6, hemoglobin 10.6, hematocrit 35.7, and platelets 141,000. Chemistry shows CEA equal 4.0, CA 19-9 equal 49.5, and creatinine 0.6. Stool for OB positive. IMPRESSION: 1. Increased CEA 19-9, rule out gastrointestinal malignancy ( gastrointestinal). 2. Increased CEA 19-9, rule out pancreatic cancer. 3. Anemia of chronic disease. 4. Decreased hemoglobin and hematocrit, rule out gastrointestinal bleed. 5. Thrombocytopenia, multifactorial. 6. Coronary artery disease. 7. Status post stent placement. 8. Hypertension. 9. Status post hysterectomy. 10. Urinary tract infection. 11. gastrointestinal bleed (stool for occult blood positive). 12. High-grade small bowel obstruction. 13. Malnutrition. 14. Failure to thrive. RECOMMENDATIONS: 1. Watch count. 2. Watch coagulopathy. 3. GI followup. 4. Pulmonary followup. 5. Skin care. 6. Nutrition. 7. Venous Doppler of the bilateral legs to rule out DVT. 8. Cardiology followup. 9. Surgery followup. 10. Upper endoscopy/colonoscopy. 11. Pain control. 12. Continue current treatment. Chilo Calderon MD DR: HUMA JOB#: [id number] CC:
[2016-05-11 04:00] VITALS: BP 160/77
--- NOTE | 2016-05-11 08:12 | General Progress Note ---
Assessment/Plan Problem List: (1) SBO (small bowel obstruction) ICD Codes: K56.69 - Other intestinal obstruction SNOMED: 031263580 (2) Occult blood in stools ICD Codes: R19.5 - Other fecal abnormalities SNOMED: 35939399, 800368334 (3) Abdominal pain ICD Codes: R10.9 - Unspecified abdominal pain SNOMED: 36092612 Qualifiers: Qualified Codes: R10.84 - Generalized abdominal pain Assessment/Plan SBFT reviewed on diet per surg needs EGD and colonoscopy when SBO is completely resolved patient will go home and fu with her primary MD to get scheduled to see a GI MD for EGD and colonoscopy Subjective ROS Limited/Unobtainable: Yes Allergies: Coded Allergies: CODEINE (Unverified Allergy, Severe, Hives, 11/13/13) Subjective is eating better Objective Last 24 Hour Vital Signs Date Time Temp Pulse Resp B/P Pulse Ox O2 Delivery O2 Flow Rate FiO2 05/11/16 04:00 98.1 62 19 160/77 98 Room Air 05/11/16 00:00 97.7 61 18 143/78 98 Room Air 05/10/16 20:00 97.7 69 17 118/68 95 Room Air 05/10/16 19:05 98.2 05/10/16 18:05 157/80 05/10/16 16:00 98.2 72 17 157/80 96 Room Air 05/10/16 11:39 98.4 79 15 130/76 98 Room Air 05/10/16 10:17 144/74 05/10/16 10:17 75 144/74 05/10/16 10:16 75 144/74 05/10/16 08:18 98.2 75 16 144/74 95 Room Air Intake and Output 05/10/16 05/11/16 19:00 07:00 Intake Total 1500 ml 1260 ml Balance 1500 ml 1260 ml Intake Oral 900 ml 360 ml IV Total 600 ml 900 ml # Voids 1 4 Laboratory Tests 05/11/16 06:35: White Blood Count [Pending], Red Blood Count [Pending], Hemoglobin [Pending], Hematocrit [Pending], Mean Corpuscular Volume [Pending], Mean Corpuscular Hemoglobin [Pending], Mean Corpuscular Hemoglobin Concent [Pending], Red Cell Distribution Width [Pending], Platelet Count [Pending], Mean Platelet Volume [ Pending], Neutrophils (%) (Auto) [Pending], Lymphocytes (%) (Auto) [Pending], Monocytes (%) (Auto) [Pending], Eosinophils (%) (Auto) [Pending], Basophils (%) (Auto) [Pending], Sodium Level [Pending], Potassium Level [Pending], Chloride Level [Pending], Carbon Dioxide Level [Pending], Blood Urea Nitrogen [Pending], Creatinine [Pending], Estimat Glomerular Filtration Rate [Pending], Glucose Level [Pending], Calcium Level [Pending], Magnesium Level [Pending] Height (Feet): 5 Height (Inches): 6.00 Weight (Pounds): 165 General Appearance: alert EENT: normal ENT inspection Neck: supple Cardiovascular: normal rate Respiratory/Chest: lungs clear Abdomen: normal bowel sounds, non tender, soft Extremities: non-tender VILMA LUIS May 11, 2016 08:12
[2016-05-11 08:17] LABS: BASOPHILS % (AUTO) 0.5 % (0.0-2.0); EOSINOPHILS % (AUTO) 0.8 % (0.0-3.0); LYMPHOCYTES % (AUTO) 30.9 % (20.0-45.0); MEAN CORPUSCULAR HEMOGLOBIN 28.7 PG (27.0-31.0); MEAN CORPUSCULAR HGB CONC 30.3 G/DL (32.0-36.0); MEAN CORPUSCULAR VOLUME 95 FL (80-99); MEAN PLATELET VOLUME 10.6 FL (6.5-10.1); MONOCYTES % (AUTO) 12.3 % (1.0-10.0); NEUTROPHILS % (AUTO) 55.5 % (45.0-75.0); PLATELET COUNT 139 K/UL (150-450); RED CELL DISTRIBUTION WIDTH 18.5 % (11.6-14.8); WHITE BLOOD COUNT 5.2 K/UL (4.8-10.8)
[2016-05-11 08:32] VITALS: BP 152/81
[2016-05-11 08:42] LABS: ANION GAP 11 (5-15); CALCIUM 9.3 mg/dL (8.6-10.2); CARBON DIOXIDE 31 mEQ/L (20-30); CHLORIDE 102 mEQ/L (98-107); CREATININE 0.7 mg/dL (0.5-0.9); GLOMERULAR FILTRATION RATE > 60 mL/min (>60); HEMOLYSIS 2; MAGNESIUM 1.3 mg/dL (1.7-2.5); POTASSIUM 4.4 mEQ/L (3.4-4.9); SODIUM 144 mEQ/L (135-145)
[2016-05-11] MEDS: Losartan 50mg tab ORAL SCH (08:57)
[2016-05-11] MEDS: Pantoprazole Inj IVP SCH (08:58)
[2016-05-11] MEDS: Heparin 5000 units/ml inj SUBQ SCH ×2 (09:00→20:02)
--- NOTE | 2016-05-11 11:05 | General Progress Note ---
Progress Note Progress Note Eating. no pain, normal BM, abdomen flat. Resolved high grade partial SBO likely secondary to adhesions. Diet manipulation: low fiber, well chewed with liquids. OK to discharge from surgery stand point MIKAEL HARRELL May 11, 2016 11:05
[2016-05-11] MEDS: D5 1/2NS 1,000 ML IV SCH (11:40)
[2016-05-11 12:03] VITALS: BP 143/76
--- NOTE | 2016-05-11 13:40 | Pulmonology Progress Note ---
Assessment/Plan Assessment/Plan ASSESSMENT high grade SBO - resolved abdominal pain pancreatitis anemia elevated CA19-9 positive stool for occult blood PLAN OF CARE initially NPO bowel rest IVF bowel decompression with NGT surgery and GI follow series of KUB resolved SBO tolerates soft diet added Simethicone as needed for gas pain elevated CA 19-9 stool OB positive onco consult requested to r/o pancreatic Ca lipase down to normal per GI - colonoscopy on Friday if stays or outpatient per insurance patient wants to have colonoscopy done now, elevated tumor markers, stool OB +, poor appetite still educated on low residue diet at home DVT, GI prophylaxis BP management with current regimen and optimize as needed case discussed and evaluated by supervising physician Subjective Allergies: Coded Allergies: CODEINE (Unverified Allergy, Severe, Hives, 11/13/13) Subjective no abdominal pain, lots of gas tolerated soft diet , no n/v/ poor appetite afebrile, no leukocytosis Objective Last 24 Hour Vital Signs Date Time Temp Pulse Resp B/P Pulse Ox O2 Delivery O2 Flow Rate FiO2 05/11/16 12:03 98.1 67 14 143/76 97 Room Air 05/11/16 10:14 98.1 05/11/16 09:05 74 152/81 05/11/16 09:04 152/81 05/11/16 08:57 152/81 05/11/16 08:57 74 152/81 05/11/16 08:32 98.2 74 14 152/81 100 Room Air 05/11/16 04:00 98.1 62 19 160/77 98 Room Air 05/11/16 00:00 97.7 61 18 143/78 98 Room Air 05/10/16 20:00 97.7 69 17 118/68 95 Room Air 05/10/16 19:05 98.2 05/10/16 18:05 157/80 05/10/16 16:00 98.2 72 17 157/80 96 Room Air Intake and Output 05/10/16 05/11/16 19:00 07:00 Intake Total 1500 ml 1260 ml Balance 1500 ml 1260 ml Intake Oral 900 ml 360 ml IV Total 600 ml 900 ml # Voids 1 4 Objective General Appearance: WD/WN, no acute distress, A/A/O x 3 AA female HEENT: normocephalic, atraumatic, anicteric Respiratory/Chest: lungs clear, no respiratory distress, no accessory muscle use Cardiovascular: normal peripheral pulses, normal rate, no JVD Abdomen: normal bowel sounds, soft, non tender, non distended Genitourinary: normal external genitalia Extremities: no edema 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, no motor/sensory deficits, alert, oriented x 3, responsive Musculoskeletal: normal muscle bulk Microbiology Date/Time Source Procedure Growth Status 05/08/16 14:15 Stool Clostridium difficile Toxin Assay - Final Complete Laboratory Tests 05/11/16 06:35: White Blood Count 5.2, Red Blood Count 3.40L, Hemoglobin 9.8L, Hematocrit 32.3L , Mean Corpuscular Volume 95, Mean Corpuscular Hemoglobin 28.7, Mean Corpuscular Hemoglobin Concent 30.3L, Red Cell Distribution Width 18.5H, Platelet Count 139L, Mean Platelet Volume 10.6H, Neutrophils (%) (Auto) 55.5, Lymphocytes (%) (Auto) 30.9, Monocytes (%) (Auto) 12.3H, Eosinophils (%) (Auto) 0.8, Basophils (%) (Auto) 0.5, Sodium Level 144, Potassium Level 4.4, Chloride Level 102, Carbon Dioxide Level 31H, Anion Gap 11, Blood Urea Nitrogen 12, Creatinine 0.7, Estimat Glomerular Filtration Rate > 60, Glucose Level 86, Calcium Level 9.3, Magnesium Level 1.3L Current Medications Medications (Trade) Dose Ordered Sig/Talita Route PRN Reason Start Time Stop Time Status Last Admin Dose Admin Acetaminophen (Tylenol) 650 mg Q4H PRN ORAL Mild Pain/Temp > 100.5 05/11/16 09:00 06/10/16 08:59 05/11/16 09:15 Al Hydroxide/Mg Hydroxide (Mylanta II) 30 ml Q6H PRN ORAL dyspepsia 05/10/16 09:30 06/09/16 09:29 Amlodipine Besylate (Norvasc) 10 mg DAILY ORAL 05/10/16 09:00 06/09/16 08:59 05/11/16 08:57 Clonidine HCl (Catapres) 0.1 mg BID GT 05/10/16 09:00 06/09/16 08:59 05/11/16 09:04 Clonidine HCl (Catapres) 0.1 mg Q6H PRN ORAL For High Blood Pressure 05/10/16 11:30 06/09/16 11:29 Dextrose (Dextrose 50%) STAT PRN IV Hypoglycemia 05/10/16 15:30 06/09/16 15:29 Dextrose/Sodium Chloride (D5 0.45% NS) 1,000 ml @ 75 mls/hr [id number] IV 05/10/16 09:00 06/09/16 08:59 05/10/16 22:17 Diphenhydramine HCl (Benadryl) 25 mg Q6H PRN ORAL Itching/Pruritis 05/10/16 09:30 06/09/16 09:29 Enalaprilat (Vasotec) 2.5 mg Q4H PRN IV sbp more than 200 05/10/16 10:30 06/09/16 10:29 Heparin Sodium (Porcine) (Heparin 5000 units/ml) 5,000 units EVERY 12 HOURS SUBQ 05/10/16 09:00 06/09/16 08:59 Losartan Potassium (Cozaar) 50 mg DAILY ORAL 05/10/16 09:00 06/09/16 08:59 05/11/16 08:57 Metoprolol Succinate (Toprol XL) 25 mg DAILY ORAL 05/10/16 09:00 06/09/16 08:59 05/11/16 09:05 Morphine Sulfate (Morphine Sulfate) 2 mg Q4H PRN IVP severe Pain (Pain Scale 7-10) 05/10/16 07:30 05/17/16 07:29 Nitroglycerin (Ntg) 0.4 mg Q5M X 3 DOSES PRN SL Prn Chest Pain 05/10/16 07:15 06/09/16 07:14 Ondansetron HCl (Zofran) 4 mg Q6H PRN IVP Nausea & Vomiting 05/10/16 09:30 06/09/16 09:29 05/10/16 19:30 Pantoprazole (Protonix) 40 mg DAILY IVP 05/10/16 09:00 06/09/16 08:59 05/11/16 08:58 Polyethylene Glycol (Miralax) 17 gm HSPRN PRN ORAL Constipation 05/10/16 15:30 06/09/16 15:29 Promethazine HCl (Phenergan) 25 mg Q6H PRN IM Nausea & Vomiting 05/10/16 10:00 06/09/16 09:59 Simethicone (Mylicon) 80 mg QID PRN ORAL gas pain 05/10/16 14:45 06/09/16 14:44 05/10/16 18:02 Temazepam (Restoril) 15 mg HSPRN PRN ORAL Insomnia 05/10/16 15:30 05/17/16 15:29 [facility] Hospital[facility] Jeter NP May 11, 2016 13:40
[2016-05-11 16:29] VITALS: BP 145/77
[2016-05-11 20:00] VITALS: BP 146/77
[2016-05-11] MEDS: Simethicone 80mg tab ORAL PRN (20:17)
--- NOTE | 2016-05-11 22:46 | General Progress Note ---
Assessment/Plan Assessment/Plan IMPRESSION: 1. Increased CEA, rule out gastrointestinal malignancy ( colon vs gastrointestinal). 2. Increased CEA 19-9, rule out pancreatic cancer. 3. Anemia of chronic disease. 4. Decreased hemoglobin and hematocrit, rule out gastrointestinal bleed. 5. Thrombocytopenia, multifactorial. 6. Coronary artery disease. 7. Status post stent placement. 8. Hypertension. 9. Status post hysterectomy. 10. Urinary tract infection. 11. Ocult gastrointestinal bleed (stool for occult blood positive). 12. High-grade small bowel obstruction. 13. Malnutrition. 14. Failure to thrive. RECOMMENDATIONS: 1. Watch count. 2. Watch coagulopathy. 3. GI followup. 4. Pulmonary followup. 5. Skin care. 6. Nutrition. 7. Venous Doppler of the bilateral legs to rule out DVT. 8. Cardiology followup. 9. Surgery followup. 10. Upper endoscopy/colonoscopy. 11. Pain control. 12. Continue current treatment. Selena Calderon MD Subjective Constitutional: Reports: no symptoms HEENT: Reports: no symptoms Cardiovascular: Reports: no symptoms Respiratory: Reports: no symptoms Genitourinary: Reports: no symptoms Neurologic/Psychiatric: Reports: no symptoms Hematologic/Lymphatic: Reports: no symptoms Allergies: Coded Allergies: CODEINE (Unverified Allergy, Severe, Hives, 11/13/13) Objective Last 24 Hour Vital Signs Date Time Temp Pulse Resp B/P Pulse Ox O2 Delivery O2 Flow Rate FiO2 05/11/16 20:00 98.2 65 18 146/77 100 Room Air 05/11/16 18:10 98.2 05/11/16 17:06 145/77 05/11/16 16:29 98.2 68 15 145/77 94 05/11/16 12:03 98.1 67 14 143/76 97 Room Air 05/11/16 09:05 74 152/81 05/11/16 09:04 152/81 05/11/16 08:57 152/81 05/11/16 08:57 74 152/81 05/11/16 08:32 98.2 74 14 152/81 100 Room Air 05/11/16 04:00 98.1 62 19 160/77 98 Room Air 05/11/16 00:00 97.7 61 18 143/78 98 Room Air Intake and Output 05/10/16 05/11/16 19:00 07:00 Intake Total 1500 ml 1260 ml Balance 1500 ml 1260 ml Intake Oral 900 ml 360 ml IV Total 600 ml 900 ml # Voids 1 4 Laboratory Tests 05/11/16 06:35: White Blood Count 5.2, Red Blood Count 3.40L, Hemoglobin 9.8L, Hematocrit 32.3L , Mean Corpuscular Volume 95, Mean Corpuscular Hemoglobin 28.7, Mean Corpuscular Hemoglobin Concent 30.3L, Red Cell Distribution Width 18.5H, Platelet Count 139L, Mean Platelet Volume 10.6H, Neutrophils (%) (Auto) 55.5, Lymphocytes (%) (Auto) 30.9, Monocytes (%) (Auto) 12.3H, Eosinophils (%) (Auto) 0.8, Basophils (%) (Auto) 0.5, Sodium Level 144, Potassium Level 4.4, Chloride Level 102, Carbon Dioxide Level 31H, Anion Gap 11, Blood Urea Nitrogen 12, Creatinine 0.7, Estimat Glomerular Filtration Rate > 60, Glucose Level 86, Calcium Level 9.3, Magnesium Level 1.3L Height (Feet): 5 Height (Inches): 6.00 Weight (Pounds): 165 General Appearance: no apparent distress EENT: TMs normal Neck: supple Cardiovascular: regular rhythm Respiratory/Chest: lungs clear Abdomen: soft Edema: no edema noted Arm (L), no edema noted Arm (R), no edema noted Leg (L), no edema noted Leg (R), no edema noted Pedal (L), no edema noted Pedal (R), no edema noted Generalized Edema: mild edema Neurologic: alert Skin: warm/dry Lymphatic: normal anterior cervical (L), normal anterior cervical (R), normal axillary (L), normal axillary (R), normal inguinal (L), normal inguinal (R), normal other, normal posterior cervical (L), normal posterior cervical (R), normal submandibular (L), normal submandibular (R), normal supraclavicular (L), normal supraclavicular (R) SELENA CALDERON May 11, 2016 22:46
[2016-05-12] VITALS: BP 159/77
[2016-05-12] MEDS: D5 1/2NS 1,000 ML IV SCH ×2 (00:26→14:18)
[2016-05-12 04:00] VITALS: BP 153/80
[2016-05-12 07:22] LABS: BASOPHILS % (AUTO) 0.7 % (0.0-2.0); EOSINOPHILS % (AUTO) 1.4 % (0.0-3.0); MEAN CORPUSCULAR HEMOGLOBIN 27.9 PG (27.0-31.0); MEAN CORPUSCULAR HGB CONC 29.6 G/DL (32.0-36.0); MEAN CORPUSCULAR VOLUME 94 FL (80-99); MONOCYTES % (AUTO) 14.4 % (1.0-10.0); NEUTROPHILS % (AUTO) 47.6 % (45.0-75.0); PLATELET COUNT 137 K/UL (150-450); RED BLOOD COUNT 3.37 M/UL (4.20-5.40); RED CELL DISTRIBUTION WIDTH 18.2 % (11.6-14.8); WHITE BLOOD COUNT 5.9 K/UL (4.8-10.8)
[2016-05-12 07:53] LABS: ANION GAP 10 (5-15); CALCIUM 9.4 mg/dL (8.6-10.2); CARBON DIOXIDE 31 mEQ/L (20-30); CHLORIDE 105 mEQ/L (98-107); CREATININE 0.7 mg/dL (0.5-0.9); GLOMERULAR FILTRATION RATE > 60 mL/min (>60); HEMOLYSIS 4; POTASSIUM 3.9 mEQ/L (3.4-4.9); SODIUM 146 mEQ/L (135-145)
[2016-05-12 08:00] VITALS: BP 132/71
--- NOTE | 2016-05-12 08:02 | General Progress Note ---
Assessment/Plan Problem List: (1) SBO (small bowel obstruction) ICD Codes: K56.69 - Other intestinal obstruction SNOMED: 352505591 (2) Occult blood in stools ICD Codes: R19.5 - Other fecal abnormalities SNOMED: 06204104, 502795405 (3) Abdominal pain ICD Codes: R10.9 - Unspecified abdominal pain SNOMED: 46023775 Qualifiers: Qualified Codes: R10.84 - Generalized abdominal pain Assessment/Plan plan EGD and colonoscopy tomorrow Subjective ROS Limited/Unobtainable: Yes Allergies: Coded Allergies: CODEINE (Unverified Allergy, Severe, Hives, 11/13/13) Subjective is eating better Objective Last 24 Hour Vital Signs Date Time Temp Pulse Resp B/P Pulse Ox O2 Delivery O2 Flow Rate FiO2 05/12/16 04:00 98.2 61 16 153/80 99 Room Air 05/12/16 00:00 98.1 59 16 159/77 98 Room Air 05/11/16 20:00 98.2 65 18 146/77 100 Room Air 05/11/16 18:10 98.2 05/11/16 17:06 145/77 05/11/16 16:29 98.2 68 15 145/77 94 05/11/16 12:03 98.1 67 14 143/76 97 Room Air 05/11/16 09:05 74 152/81 05/11/16 09:04 152/81 05/11/16 08:57 152/81 05/11/16 08:57 74 152/81 05/11/16 08:32 98.2 74 14 152/81 100 Room Air Intake and Output 05/11/16 05/12/16 19:00 07:00 Intake Total 1375 ml 727.5 ml Balance 1375 ml 727.5 ml Intake Oral 1300 ml 240 ml IV Total 75 ml 487.5 ml # Voids 4 3 Laboratory Tests 05/12/16 05:45: White Blood Count 5.9, Red Blood Count 3.37L, Hemoglobin 9.4L, Hematocrit 31.7L , Mean Corpuscular Volume 94, Mean Corpuscular Hemoglobin 27.9, Mean Corpuscular Hemoglobin Concent 29.6L, Red Cell Distribution Width 18.2H, Platelet Count 137L, Mean Platelet Volume 9.0, Neutrophils (%) (Auto) 47.6, Lymphocytes (%) (Auto) 36.0, Monocytes (%) (Auto) 14.4H, Eosinophils (%) (Auto) 1.4, Basophils (%) (Auto) 0.7, Sodium Level 146H, Potassium Level 3.9, Chloride Level 105, Carbon Dioxide Level 31H, Anion Gap 10, Blood Urea Nitrogen 14, Creatinine 0.7, Estimat Glomerular Filtration Rate > 60, Glucose Level 91, Calcium Level 9.4 Height (Feet): 5 Height (Inches): 6.00 Weight (Pounds): 165 General Appearance: alert EENT: normal ENT inspection Neck: supple Cardiovascular: normal rate Respiratory/Chest: lungs clear Abdomen: normal bowel sounds, non tender, soft Extremities: non-tender VILMA LUIS May 12, 2016 08:02
[2016-05-12] MEDS: Pantoprazole Inj IVP SCH (09:55)
[2016-05-12] MEDS: Losartan 50mg tab ORAL SCH (09:55)
[2016-05-12] MEDS ORDERED: Bisacodyl EC 5mg tab ORAL ONE (10:00)
[2016-05-12] MEDS: Heparin 5000 units/ml inj SUBQ SCH ×2 (10:08→20:42)
[2016-05-12 12:15] VITALS: BP 136/67
--- NOTE | 2016-05-12 12:25 | General Progress Note ---
Progress Note Progress Note Afebrile, no pain, less distention, no n/v, xrays: resolved SBO picture. Abdomen: soft. To have UGI endoscopy tomorrow. MIKAEL HARRELL May 12, 2016 12:24
--- NOTE | 2016-05-12 13:18 | Pulmonology Progress Note ---
Assessment/Plan Assessment/Plan ASSESSMENT high grade SBO - resolved abdominal pain pancreatitis anemia elevated CA19-9 positive stool for occult blood PLAN OF CARE initially NPO bowel rest IVF bowel decompression with NGT surgery and GI follow series of KUB resolved SBO tolerates soft diet added Simethicone as needed for gas pain Mg-1.8 ( late result 05/11), replace , check Mg level in am elevated CA 19-9 stool OB positive onco consult requested to r/o pancreatic Ca lipase down to normal per GI - EGD and colonoscopy on Friday patient wants to have colonoscopy done now, elevated tumor markers, stool OB +, poor appetite still educated on low residue diet at home DVT, GI prophylaxis BP management with current regimen and optimize as needed GI procedures in am case discussed and evaluated by supervising physician Subjective Allergies: Coded Allergies: CODEINE (Unverified Allergy, Severe, Hives, 11/13/13) Subjective no abdominal pain, lots of gas tolerated soft diet , no n/v/ poor appetite afebrile, no leukocytosis Objective Last 24 Hour Vital Signs Date Time Temp Pulse Resp B/P Pulse Ox O2 Delivery O2 Flow Rate FiO2 05/12/16 12:15 98.8 71 18 136/67 99 Room Air 05/12/16 09:55 61 132/71 05/12/16 09:55 132/71 05/12/16 09:55 61 132/71 05/12/16 09:51 132/71 05/12/16 08:00 97.3 65 18 132/71 99 Room Air 05/12/16 04:00 98.2 61 16 153/80 99 Room Air 05/12/16 00:00 98.1 59 16 159/77 98 Room Air 05/11/16 20:00 98.2 65 18 146/77 100 Room Air 05/11/16 18:10 98.2 05/11/16 17:06 145/77 05/11/16 16:29 98.2 68 15 145/77 94 Intake and Output 05/11/16 05/12/16 19:00 07:00 Intake Total 1375 ml 727.5 ml Balance 1375 ml 727.5 ml Intake Oral 1300 ml 240 ml IV Total 75 ml 487.5 ml # Voids 4 3 Objective General Appearance: WD/WN, no acute distress, A/A/O x 3 AA female HEENT: normocephalic, atraumatic, anicteric Respiratory/Chest: lungs clear, no respiratory distress, no accessory muscle use Cardiovascular: normal peripheral pulses, normal rate, no JVD Abdomen: normal bowel sounds, soft, non tender, non distended Genitourinary: normal external genitalia Extremities: no edema 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, no motor/sensory deficits, alert, oriented x 3, responsive Musculoskeletal: normal muscle bulk Laboratory Tests 05/12/16 05:45: White Blood Count 5.9, Red Blood Count 3.37L, Hemoglobin 9.4L, Hematocrit 31.7L , Mean Corpuscular Volume 94, Mean Corpuscular Hemoglobin 27.9, Mean Corpuscular Hemoglobin Concent 29.6L, Red Cell Distribution Width 18.2H, Platelet Count 137L, Mean Platelet Volume 9.0, Neutrophils (%) (Auto) 47.6, Lymphocytes (%) (Auto) 36.0, Monocytes (%) (Auto) 14.4H, Eosinophils (%) (Auto) 1.4, Basophils (%) (Auto) 0.7, Sodium Level 146H, Potassium Level 3.9, Chloride Level 105, Carbon Dioxide Level 31H, Anion Gap 10, Blood Urea Nitrogen 14, Creatinine 0.7, Estimat Glomerular Filtration Rate > 60, Glucose Level 91, Calcium Level 9.4 Current Medications Medications (Trade) Dose Ordered Sig/Talita Route PRN Reason Start Time Stop Time Status Last Admin Dose Admin Acetaminophen (Tylenol) 650 mg Q4H PRN ORAL Mild Pain/Temp > 100.5 05/11/16 09:00 06/10/16 08:59 05/11/16 17:11 Al Hydroxide/Mg Hydroxide (Mylanta II) 30 ml Q6H PRN ORAL dyspepsia 05/10/16 09:30 06/09/16 09:29 Amlodipine Besylate (Norvasc) 10 mg DAILY ORAL 05/10/16 09:00 06/09/16 08:59 05/12/16 09:55 Clonidine HCl (Catapres) 0.1 mg BID GT 05/10/16 09:00 06/09/16 08:59 05/11/16 17:06 Clonidine HCl (Catapres) 0.1 mg Q6H PRN ORAL For High Blood Pressure 05/10/16 11:30 06/09/16 11:29 Dextrose (Dextrose 50%) STAT PRN IV Hypoglycemia 05/10/16 15:30 06/09/16 15:29 Dextrose/Sodium Chloride (D5 0.45% NS) 1,000 ml @ 75 mls/hr [id number] IV 05/10/16 09:00 06/09/16 08:59 05/12/16 00:26 Diphenhydramine HCl (Benadryl) 25 mg Q6H PRN ORAL Itching/Pruritis 05/10/16 09:30 06/09/16 09:29 Enalaprilat (Vasotec) 2.5 mg Q4H PRN IV sbp more than 200 05/10/16 10:30 06/09/16 10:29 Heparin Sodium (Porcine) (Heparin 5000 units/ml) 5,000 units EVERY 12 HOURS SUBQ 05/10/16 09:00 06/09/16 08:59 Losartan Potassium (Cozaar) 50 mg DAILY ORAL 05/10/16 09:00 06/09/16 08:59 05/12/16 09:55 Metoprolol Succinate (Toprol XL) 25 mg DAILY ORAL 05/10/16 09:00 06/09/16 08:59 05/12/16 09:55 Morphine Sulfate (Morphine Sulfate) 2 mg Q4H PRN IVP severe Pain (Pain Scale 7-10) 05/10/16 07:30 05/17/16 07:29 Nitroglycerin (Ntg) 0.4 mg Q5M X 3 DOSES PRN SL Prn Chest Pain 05/10/16 07:15 06/09/16 07:14 Ondansetron HCl (Zofran) 4 mg Q6H PRN IVP Nausea & Vomiting 05/10/16 09:30 06/09/16 09:29 05/12/16 10:05 Pantoprazole (Protonix) 40 mg DAILY IVP 05/10/16 09:00 06/09/16 08:59 05/12/16 09:55 Polyethylene Glycol (Miralax) 17 gm HSPRN PRN ORAL Constipation 05/10/16 15:30 06/09/16 15:29 05/11/16 20:13 Polyethylene Glycol/ Electrolytes (Nulytely) 4,000 ml ONCE ONCE ORAL 05/12/16 15:00 05/12/16 15:01 Promethazine HCl (Phenergan) 25 mg Q6H PRN IM Nausea & Vomiting 05/10/16 10:00 06/09/16 09:59 Simethicone (Mylicon) 80 mg QID PRN ORAL gas pain 05/10/16 14:45 06/09/16 14:44 05/11/16 20:17 Temazepam (Restoril) 15 mg HSPRN PRN ORAL Insomnia 05/10/16 15:30 05/17/16 15:29 05/11/16 20:17 [facility] ([facility])Aylin NP May 12, 2016 13:18
[2016-05-12] MEDS ORDERED: Nulytely 4L ORAL ONE (15:00)
[2016-05-12 16:37] VITALS: BP 147/88
[2016-05-12 20:00] VITALS: BP 143/68
--- NOTE | 2016-05-12 22:54 | General Progress Note ---
Assessment/Plan Assessment/Plan IMPRESSION: 1. Increased CEA, rule out gastrointestinal malignancy ( colon vs gastrointestinal). 2. Increased CEA 19-9, rule out pancreatic cancer. 3. Anemia of chronic disease. 4. Decreased hemoglobin and hematocrit, rule out gastrointestinal bleed. 5. Thrombocytopenia, multifactorial. 6. Coronary artery disease. 7. Status post stent placement. 8. Hypertension. 9. Status post hysterectomy. 10. Urinary tract infection. 11. Ocult gastrointestinal bleed (stool for occult blood positive). 12. High-grade small bowel obstruction. 13. Malnutrition. 14. Failure to thrive. RECOMMENDATIONS: 1. Watch count. 2. Watch coagulopathy. 3. GI followup. 4. Pulmonary followup. 5. Skin care. 6. Nutrition. 7. Venous Doppler of the bilateral legs to rule out DVT. 8. Cardiology followup. 9. Surgery followup. 10. Upper endoscopy/colonoscopy. 11. Pain control. 12. Continue current treatment. Selena Calderon MD Subjective Constitutional: Reports: no symptoms HEENT: Reports: no symptoms Cardiovascular: Reports: no symptoms Respiratory: Reports: no symptoms Gastrointestinal/Abdominal: Reports: no symptoms Genitourinary: Reports: no symptoms Neurologic/Psychiatric: Reports: no symptoms Endocrine: Reports: no symptoms Hematologic/Lymphatic: Reports: no symptoms Allergies: Coded Allergies: CODEINE (Unverified Allergy, Severe, Hives, 11/13/13) Objective Last 24 Hour Vital Signs Date Time Temp Pulse Resp B/P Pulse Ox O2 Delivery O2 Flow Rate FiO2 05/12/16 21:52 97.7 05/12/16 20:52 143/68 05/12/16 20:00 97.7 71 18 143/68 97 Room Air 05/12/16 16:37 98.4 76 15 147/88 95 Room Air 05/12/16 12:15 98.8 71 18 136/67 99 Room Air 05/12/16 09:55 61 132/71 05/12/16 09:55 132/71 05/12/16 09:55 61 132/71 05/12/16 09:51 132/71 05/12/16 08:00 97.3 65 18 132/71 99 Room Air 05/12/16 04:00 98.2 61 16 153/80 99 Room Air 05/12/16 00:00 98.1 59 16 159/77 98 Room Air Intake and Output 05/11/16 05/12/16 19:00 07:00 Intake Total 1375 ml 727.5 ml Balance 1375 ml 727.5 ml Intake Oral 1300 ml 240 ml IV Total 75 ml 487.5 ml # Voids 4 3 Laboratory Tests 05/12/16 05:45: White Blood Count 5.9, Red Blood Count 3.37L, Hemoglobin 9.4L, Hematocrit 31.7L , Mean Corpuscular Volume 94, Mean Corpuscular Hemoglobin 27.9, Mean Corpuscular Hemoglobin Concent 29.6L, Red Cell Distribution Width 18.2H, Platelet Count 137L, Mean Platelet Volume 9.0, Neutrophils (%) (Auto) 47.6, Lymphocytes (%) (Auto) 36.0, Monocytes (%) (Auto) 14.4H, Eosinophils (%) (Auto) 1.4, Basophils (%) (Auto) 0.7, Sodium Level 146H, Potassium Level 3.9, Chloride Level 105, Carbon Dioxide Level 31H, Anion Gap 10, Blood Urea Nitrogen 14, Creatinine 0.7, Estimat Glomerular Filtration Rate > 60, Glucose Level 91, Calcium Level 9.4 05/12/16 13:20: Stool Occult Blood [Pending] Height (Feet): 5 Height (Inches): 6.00 Weight (Pounds): 165 General Appearance: no apparent distress EENT: normal ENT inspection Neck: supple Cardiovascular: normal rate Respiratory/Chest: lungs clear Pelvis: no masses Extremities: normal inspection Edema: no edema noted Arm (L), no edema noted Arm (R), no edema noted Leg (L), no edema noted Leg (R), no edema noted Pedal (L), no edema noted Pedal (R), no edema noted Generalized Edema: mild edema Neurologic: alert Skin: warm/dry Lymphatic: normal anterior cervical (L), normal anterior cervical (R), normal axillary (L), normal axillary (R), normal inguinal (L), normal inguinal (R), normal other, normal posterior cervical (L), normal posterior cervical (R), normal submandibular (L), normal submandibular (R), normal supraclavicular (L), normal supraclavicular (R) SELENA CALDERON May 12, 2016 22:54
[2016-05-13] VITALS (9 sets, daily range): BP systolic 136–157; BP diastolic 63–83
[2016-05-13] MEDS: D5 1/2NS 1,000 ML IV SCH ×2 (03:34→17:00)
[2016-05-13 07:08] LABS: BASOPHILS % (AUTO) 0.8 % (0.0-2.0); EOSINOPHILS % (AUTO) 0.8 % (0.0-3.0); LYMPHOCYTES % (AUTO) 26.7 % (20.0-45.0); MEAN CORPUSCULAR HGB CONC 29.4 G/DL (32.0-36.0); MEAN CORPUSCULAR VOLUME 95 FL (80-99); MONOCYTES % (AUTO) 14.9 % (1.0-10.0); NEUTROPHILS % (AUTO) 56.7 % (45.0-75.0); PLATELET COUNT 151 K/UL (150-450); RED BLOOD COUNT 3.14 M/UL (4.20-5.40); RED CELL DISTRIBUTION WIDTH 18.7 % (11.6-14.8); WHITE BLOOD COUNT 6.4 K/UL (4.8-10.8)
[2016-05-13 07:23] LABS: ANION GAP 12 (5-15); CALCIUM 9.3 mg/dL (8.6-10.2); CARBON DIOXIDE 29 mEQ/L (20-30); CHLORIDE 104 mEQ/L (98-107); CREATININE 0.7 mg/dL (0.5-0.9); GLOMERULAR FILTRATION RATE > 60 mL/min (>60); HEMOLYSIS 9; POTASSIUM 4.6 mEQ/L (3.4-4.9); SODIUM 145 mEQ/L (135-145)
--- NOTE | 2016-05-13 07:24 | Anethesia Preoperative Eval ---
Anesthesia Pre-op PMH/ROS General Date of Evaluation: May 13, 2016 Anesthesiologist: Chiki ASA Score: ASA 3 Mallampati Score Class I : Soft palate, uvula, fauces, pillars visible Class II: Soft palate, uvula, fauces visible Class III: Soft palate, base of uvula visible Class IV: Only hard plate visible Mallampati Classification: Class II Surgeon: Emmanuel Diagnosis: Abdominal pain Surgical Procedure: EGD Anesthesia History: none Family History: no anesthesia problems Allergies: Coded Allergies: CODEINE (Unverified Allergy, Severe, Hives, 11/13/13) Medications: see eMAR Past Medical History Cardiovascular: Reports: CAD - s/p stents, HTN, Denies: DE, arrhythmia, other, valve dz Pulmonary: Denies: COPD, ALEXANDER, asthma, other Gastrointestinal/Genitourinary: Reports: GERD, other - pancreatitis, hiatal hernia, Denies: CRI, ESRD Neurologic/Psychiatric: Reports: depression/anxiety, Denies: CVA, TIA, dementia, other Endocrine: Denies: DM, hypothyroidism, other, steroids HEENT: Denies: [place] (L), [place] (R), cataract (L), cataract (R), glaucoma, other Hematology/Immune: Reports: anemia, Denies: DVT, bleeding disorder, other Musculoskeletal/Integumentary: Denies: DDD, DJD, OA, RA, edema, other PSxH Narrative: ADELIA Anesthesia Pre-op Phys. Exam Physician Exam Last Vital Signs Date Time Temp Pulse Resp B/P Pulse Ox O2 Delivery O2 Flow Rate FiO2 05/13/16 04:00 97.9 63 17 145/68 98 Room Air 05/06/16 10:21 2.0 Constitutional: NAD Cardiovascular: RRR Respiratory: CTA Airway Exam Mallampati Score: Class II Anesthesia Pre-op A/P Labs Hematology Test 05/13/16 05:20 White Blood Count 6.4 K/UL (4.8-10.8) Red Blood Count 3.14 M/UL (4.20-5.40) L Hemoglobin 8.8 G/DL (12.0-16.0) L Hematocrit 29.9 % (37.0-47.0) L Mean Corpuscular Volume 95 FL (80-99) Mean Corpuscular Hemoglobin 28.0 PG (27.0-31.0) Mean Corpuscular Hemoglobin Concent 29.4 G/DL (32.0-36.0) L Red Cell Distribution Width 18.7 % (11.6-14.8) H Platelet Count 151 K/UL (150-450) Mean Platelet Volume 9.0 FL (6.5-10.1) Neutrophils (%) (Auto) 56.7 % (45.0-75.0) Lymphocytes (%) (Auto) 26.7 % (20.0-45.0) Monocytes (%) (Auto) 14.9 % (1.0-10.0) H Eosinophils (%) (Auto) 0.8 % (0.0-3.0) Basophils (%) (Auto) 0.8 % (0.0-2.0) Chemistry Test 05/13/16 05:20 Sodium Level Pending Potassium Level Pending Chloride Level Pending Carbon Dioxide Level Pending Blood Urea Nitrogen Pending Creatinine Pending Estimat Glomerular Filtration Rate Pending Glucose Level Pending Calcium Level Pending Magnesium Level 1.7 mg/dL (1.7-2.5) Studies Pre-op Studies: EKG - sr Risk Assessment & Plan Assessment: ASA III Plan: MAC Status Change Before Surgery: No Pre-Antibiotics Drug: N/A LEXIE PINA M.D. May 13, 2016 07:24
[2016-05-13] MEDS: Heparin 5000 units/ml inj SUBQ SCH (09:00)
--- NOTE | 2016-05-13 09:49 | Immediate Post-Op Evaluation ---
Immediate Post-Op Evalulation Immediate Post-Op Evalulation Procedure: EGD Date of Evaluation: May 13, 2016 Time of Evaluation: 11:59 IV Fluids: 300 Blood Products: 0 Estimated Blood Loss: 0 Urinary Output: 0 Blood Pressure Systolic: 136 Blood Pressure Diastolic: 73 Pulse Rate: 65 Respiratory Rate: 16 O2 Sat by Pulse Oximetry: 100 Temperature (Fahrenheit): 99.2 Pain Score (1-10): 0 Nausea: No Vomiting: No Complications 0 Patient Status: awake, reacts, patent, none Hydration Status: adequate Drug: N/A LEXIE PINA M.D. May 13, 2016 09:49
--- NOTE | 2016-05-13 09:50 | 48 Hour Post Anesthesia Eval ---
Post Anesthesia Evaluation Procedure: EGD Date of Evaluation: May 13, 2016 Blood Pressure Systolic: 131 0: 79 Pulse Rate: 65 Respiratory Rate: 16 O2 Sat by Pulse Oximetry: 100 Airway: patent Nausea: No Vomiting: No Pain Intensity: 0 Hydration Status: adequate Cardiopulmonary Status: at baseline Mental Status/LOC: patient returned to baseline Post-Anesthesia Complications: 0 Follow-up care needed: N/A - further care as per primary team LEXIE PINA M.D. May 13, 2016 09:50
[2016-05-13] MEDS ORDERED: LR 1000ml 1,000 ML IVLG SCH (09:53)
[2016-05-13] MEDS: Pantoprazole Inj IVP SCH (09:54)
[2016-05-13] MEDS: Losartan 50mg tab ORAL SCH (09:54)
[2016-05-13] MEDS ORDERED: DiphenhydrAMINE 50mg/ml Inj IVP PRN (10:00)
--- NOTE | 2016-05-13 10:40 | General Progress Note ---
Progress Note Progress Note Surgery: patient seen and examined at bedside. doing well. no complaints. no n/v/f/c. npo now for procedure today but was tolerating diet well. sbo resolved as seen on prior upper gi. GI procedures as per GI diet as tolerated after procedure up as tolerated no surgical intervention currently necessary. Dillan Plummer May 13, 2016 10:40
[2016-05-13] MEDS ORDERED: Propofol 10mg/ml 20ml IV ONE (11:00)
[2016-05-13] MEDS ORDERED: Lidocaine 1% MPF 10mg/ml 5ml ONE (11:00)
[2016-05-13] MEDS ORDERED: LR 1000ml ONE (11:00)
--- NOTE | 2016-05-13 11:18 | Pre-Procedure Note/Attestation ---
Pre-Procedure Note/Attestation Complete Prior to Procedure Planned Procedure: not applicable Procedure Narrative: egd/colonoscopy Indications for Procedure Pre-Operative Diagnosis: anemia Attestation I attest that I discussed the nature of the procedure; its benefits; risks and complications; and alternatives (and the risks and benefits of such alternatives ), prior to the procedure, with the patient (or the patient's legal direct customer service representative). I attest that, if there was a reasonable possibility of needing a blood transfusion, the patient (or the patient's legal direct customer service representative) was given the [facility] standardized written summary, pursuant to the Kev Robby Blood Safety Act ([place] Health and Safety Code # 1645, as amended). I attest that I re-evaluated the patient just prior to the surgery and that there has been no change in the patient's H&P, except as documented below: VILMA LUIS May 13, 2016 11:18
--- NOTE | 2016-05-13 11:51 | Endoscopy Procedure Note ---
Endoscopy Procedure Note Indication for Procedure: anemia Procedures Performed: EGD, colonoscopy Operative Findings/Diagnosis: multiple polyps Specimen: yes Pt Tolerated Procedure Well: Yes Estimated Blood Loss: none Anesthesiologist: sylvia Anesthesia: MAC Implant(s) used?: No 50 yrs or older w/o bx or poly: Not Applicable 10yrs. F/U not recommended: Not Applicable VILMA LUIS May 13, 2016 11:51
--- NOTE | 2016-05-13 13:00 | General Progress Note ---
Assessment/Plan Assessment/Plan IMPRESSION: 1. Increased CEA, rule out gastrointestinal malignancy (colon vs gastrointestinal) and Increased CEA 19-9, rule out pancreatic cancer. Imaging is negative, pending egd at this time 2. Anemia of chronic disease. 3. Decreased hemoglobin and hematocrit, rule out gastrointestinal bleed. 4. Thrombocytopenia, multifactorial. 5. Coronary artery disease Status post stent placement.. 6. Ocult gastrointestinal bleed (stool for occult blood positive). 7. High-grade small bowel obstruction. 8. Malnutrition. RECOMMENDATIONS: 1. Monitor count. 2. Watch coagulopathy. 3. GI followup. 4. Pulmonary followup and recs 5. Skin care. 6. Nutritional support 7. Venous Doppler of the bilateral legs to rule out DVT. 8. Upper endoscopy/colonoscopy as per Gi 9. Pain control. Thank you, Jacob Calderon MD Subjective Constitutional: Reports: no symptoms HEENT: Reports: no symptoms Cardiovascular: Reports: no symptoms Respiratory: Reports: no symptoms Gastrointestinal/Abdominal: Reports: poor fluid intake Genitourinary: Reports: no symptoms Neurologic/Psychiatric: Reports: no symptoms Endocrine: Reports: no symptoms Hematologic/Lymphatic: Reports: anemia Allergies: Coded Allergies: CODEINE (Unverified Allergy, Severe, Hives, 11/13/13) Subjective stable, no events overnight, no fevers or chills or night sweats Objective Last 24 Hour Vital Signs Date Time Temp Pulse Resp B/P Pulse Ox O2 Delivery O2 Flow Rate FiO2 05/13/16 12:30 97.8 55 22 138/68 98 Room Air 05/13/16 12:15 55 20 145/66 100 Room Air 05/13/16 12:05 54 21 143/64 100 Room Air 05/13/16 12:00 59 20 154/67 100 Simple Mask 6.0 05/13/16 11:57 65 16 100 05/13/16 11:56 65 16 100 05/13/16 11:54 99.2 65 24 136/73 100 Simple Mask 6.0 05/13/16 09:54 65 157/83 05/13/16 09:54 157/83 05/13/16 09:54 157/83 05/13/16 09:53 65 157/83 05/13/16 08:15 97.9 65 21 157/83 97 Room Air 05/13/16 04:00 97.9 63 17 145/68 98 Room Air 05/13/16 00:00 97.7 59 18 143/63 97 Room Air 05/12/16 21:52 97.7 05/12/16 20:52 143/68 05/12/16 20:00 97.7 71 18 143/68 97 Room Air 05/12/16 16:37 98.4 76 15 147/88 95 Room Air Intake and Output 05/12/16 05/13/16 19:00 07:00 Intake Total 1230 ml 675.0 ml Output Total 500 ml Balance 730 ml 675.0 ml Intake Oral 1080 ml IV Total 150 ml 675.0 ml Output Urine Total 500 ml # Voids 3 5 # Bowel Movements 1 4 Laboratory Tests 05/12/16 13:20: Stool Occult Blood Negative 05/13/16 05:20: White Blood Count 6.4, Red Blood Count 3.14L, Hemoglobin 8.8L, Hematocrit 29.9L , Mean Corpuscular Volume 95, Mean Corpuscular Hemoglobin 28.0, Mean Corpuscular Hemoglobin Concent 29.4L, Red Cell Distribution Width 18.7H, Platelet Count 151, Mean Platelet Volume 9.0, Neutrophils (%) (Auto) 56.7, Lymphocytes (%) (Auto) 26.7, Monocytes (%) (Auto) 14.9H, Eosinophils (%) (Auto) 0.8, Basophils (%) (Auto) 0.8, Sodium Level 145, Potassium Level 4.6, Chloride Level 104, Carbon Dioxide Level 29, Anion Gap 12, Blood Urea Nitrogen 11, Creatinine 0.7, Estimat Glomerular Filtration Rate > 60, Glucose Level 88, Calcium Level 9.3, Magnesium Level 1.7 Height (Feet): 5 Height (Inches): 5.00 Weight (Pounds): 165 General Appearance: no apparent distress EENT: TMs normal Neck: supple Cardiovascular: regular rhythm Respiratory/Chest: no respiratory distress Abdomen: soft Extremities: non-tender Edema: 1+ Leg (L), 1+ Leg (R) Edema: mild edema Neurologic: alert Skin: warm/dry Jacob Calderon May 13, 2016 13:00
--- NOTE | 2016-05-13 17:23 | Pulmonology Progress Note ---
Assessment/Plan Problems: (1) SBO (small bowel obstruction) (2) Abdominal pain Assessment/Plan tolerating diet check electroltyes anemia w/u, hematology called for abnormal tumor markers. as outpatient med/surg dc home Subjective ROS Limited/Unobtainable: No Interval Events: comfortable Allergies: Coded Allergies: CODEINE (Unverified Allergy, Severe, Hives, 11/13/13) Objective Last 24 Hour Vital Signs Date Time Temp Pulse Resp B/P Pulse Ox O2 Delivery O2 Flow Rate FiO2 05/13/16 12:30 97.8 55 22 138/68 98 Room Air 05/13/16 12:15 55 20 145/66 100 Room Air 05/13/16 12:05 54 21 143/64 100 Room Air 05/13/16 12:00 59 20 154/67 100 Simple Mask 6.0 05/13/16 11:57 65 16 100 05/13/16 11:56 65 16 100 05/13/16 11:54 99.2 65 24 136/73 100 Simple Mask 6.0 05/13/16 09:54 65 157/83 05/13/16 09:54 157/83 05/13/16 09:54 157/83 05/13/16 09:53 65 157/83 05/13/16 08:15 97.9 65 21 157/83 97 Room Air 05/13/16 04:00 97.9 63 17 145/68 98 Room Air 05/13/16 00:00 97.7 59 18 143/63 97 Room Air 05/12/16 21:52 97.7 05/12/16 20:52 143/68 05/12/16 20:00 97.7 71 18 143/68 97 Room Air Intake and Output 05/12/16 05/13/16 19:00 07:00 Intake Total 1230 ml 675.0 ml Output Total 500 ml Balance 730 ml 675.0 ml Intake Oral 1080 ml IV Total 150 ml 675.0 ml Output Urine Total 500 ml # Voids 3 5 # Bowel Movements 1 4 Objective General Appearance: WD/WN, no apparent distress, alert Lines, tubes and drains: peripheral HEENT: normocephalic, atraumatic, anicteric, mucous membranes moist Neck: non-tender, supple Respiratory/Chest: chest wall non-tender, normal breath sounds - with moderate air exchange , no respiratory distress, Cardiovascular/Chest: normal rate, regular rhythm, no JVD Abdomen: normal bowel sounds, non tender, soft Extremities: no calf tenderness, normal capillary refill Laboratory Tests 05/13/16 05:20: White Blood Count 6.4, Red Blood Count 3.14L, Hemoglobin 8.8L, Hematocrit 29.9L , Mean Corpuscular Volume 95, Mean Corpuscular Hemoglobin 28.0, Mean Corpuscular Hemoglobin Concent 29.4L, Red Cell Distribution Width 18.7H, Platelet Count 151, Mean Platelet Volume 9.0, Neutrophils (%) (Auto) 56.7, Lymphocytes (%) (Auto) 26.7, Monocytes (%) (Auto) 14.9H, Eosinophils (%) (Auto) 0.8, Basophils (%) (Auto) 0.8, Sodium Level 145, Potassium Level 4.6, Chloride Level 104, Carbon Dioxide Level 29, Anion Gap 12, Blood Urea Nitrogen 11, Creatinine 0.7, Estimat Glomerular Filtration Rate > 60, Glucose Level 88, Calcium Level 9.3, Magnesium Level 1.7 Current Medications Medications (Trade) Dose Ordered Sig/Talita Route PRN Reason Start Time Stop Time Status Last Admin Dose Admin Acetaminophen (Tylenol) 650 mg Q4H PRN ORAL Mild Pain/Temp > 100.5 05/11/16 09:00 06/10/16 08:59 05/13/16 01:26 Al Hydroxide/Mg Hydroxide (Mylanta II) 30 ml Q6H PRN ORAL dyspepsia 05/10/16 09:30 06/09/16 09:29 Amlodipine Besylate (Norvasc) 10 mg DAILY ORAL 05/10/16 09:00 06/09/16 08:59 05/13/16 09:53 Clonidine HCl (Catapres) 0.1 mg BID GT 05/10/16 09:00 06/09/16 08:59 05/13/16 09:54 Clonidine HCl (Catapres) 0.1 mg Q6H PRN ORAL For High Blood Pressure 05/10/16 11:30 06/09/16 11:29 Dextrose (Dextrose 50%) STAT PRN IV Hypoglycemia 05/10/16 15:30 06/09/16 15:29 Dextrose/Sodium Chloride (D5 0.45% NS) 1,000 ml @ 75 mls/hr [id number] IV 05/10/16 09:00 06/09/16 08:59 05/13/16 03:34 Diphenhydramine HCl (Benadryl) 25 mg Q6H PRN ORAL Itching/Pruritis 05/10/16 09:30 06/09/16 09:29 Enalaprilat (Vasotec) 2.5 mg Q4H PRN IV sbp more than 200 05/10/16 10:30 06/09/16 10:29 Heparin Sodium (Porcine) (Heparin 5000 units/ml) 5,000 units EVERY 12 HOURS SUBQ 05/10/16 09:00 06/09/16 08:59 Losartan Potassium (Cozaar) 50 mg DAILY ORAL 05/10/16 09:00 06/09/16 08:59 05/13/16 09:54 Metoprolol Succinate (Toprol XL) 25 mg DAILY ORAL 05/10/16 09:00 06/09/16 08:59 05/13/16 09:54 Morphine Sulfate (Morphine Sulfate) 2 mg Q4H PRN IVP severe Pain (Pain Scale 7-10) 05/10/16 07:30 05/17/16 07:29 Nitroglycerin (Ntg) 0.4 mg Q5M X 3 DOSES PRN SL Prn Chest Pain 05/10/16 07:15 06/09/16 07:14 Ondansetron HCl (Zofran) 4 mg Q6H PRN IVP Nausea & Vomiting 05/10/16 09:30 06/09/16 09:29 05/13/16 16:40 Pantoprazole (Protonix) 40 mg DAILY IVP 05/10/16 09:00 06/09/16 08:59 05/13/16 09:54 Polyethylene Glycol (Miralax) 17 gm HSPRN PRN ORAL Constipation 05/10/16 15:30 06/09/16 15:29 05/11/16 20:13 Promethazine HCl (Phenergan) 25 mg Q6H PRN IM Nausea & Vomiting 05/10/16 10:00 06/09/16 09:59 Simethicone (Mylicon) 80 mg QID PRN ORAL gas pain 05/10/16 14:45 06/09/16 14:44 05/11/16 20:17 Temazepam (Restoril) 15 mg HSPRN PRN ORAL Insomnia 05/10/16 15:30 05/17/16 15:29 05/11/16 20:17 KATHERINE ARANA May 13, 2016 17:23
[2016-05-13] MEDS ORDERED: D5 1/2NS 1000ml IV ONE ×2 (18:24)
--- NOTE | 2016-05-13 20:58 | Procedure Note ---
DATE OF PROCEDURE: 05/13/2016 SURGEON: Malik Benitez M.D. PROCEDURE: Upper endoscopy with biopsy and colonoscopy with biopsy. ANESTHESIOLOGIST: Dr. Flores. INSTRUMENT: Olympus adult flexible upper endoscope and colonoscope. INDICATION: Anemia, stool OB positive. REASON FOR PROCEDURE: The procedure, risks, benefits, and possible consequences, including hemorrhage, aspiration, perforation and infection, and alternative treatments, were explained to the patient/legal guardian by Dr. Malik Benitez and the patient/legal guardian understood and accepted these risks. DESCRIPTION OF PROCEDURE: After informed consent was obtained and the patient was adequately sedated, Olympus upper endoscope was advanced from mouth into the second portion of the duodenum and retroflexion was performed in the stomach. The patient had diffuse gastritis. Random biopsy from antrum was obtained to rule out H. pylori infection. The patient most probably had a Lake fundoplication procedure. At this time, the upper endoscope was retrieved and the patient was turned over for colonoscopy. First, a rectal exam was performed, which was normal. Then, the scope was advanced from the rectum into the cecum. Quality of prep was fair. The patient had multiple polyps, three polyps in the transverse colon and three or four polyps in the rectosigmoid area. All of these polyps were removed with the cold biopsy forceps technique. The polyps in the rectosigmoid area are hyperplastic-looking. SUMMARY OF FINDINGS: 1. Gastritis. 2. Questionable evidence for a prior history of Lake fundoplication. 3. Multiple colonic polyps, at least seven or eight polyps. RECOMMENDATIONS: 1. Follow up biopsy results and treat accordingly. 2. Recommend repeat colonoscopy no later than three years. Malik Benitez M.D. DR: URBANO JOB#: [id number] CC:
--- NOTE | 2016-05-14 23:28 | Discharge Summary 2 SIG ---
DATE OF ADMISSION: 05/06/2016 DATE OF DISCHARGE: 05/13/2016 The patient is admitted under Dr. Pathak. REASON FOR ADMISSION: This 65-year-old female presented to the emergency room with a complaint of nausea, vomiting, and abdominal distention, associated with decreased bowel movement, not passing gas. The patient has a history of hysterectomy. She denied chest pain, shortness of breath, fever, chills, or urinary complaints. The patient is with a history of hypertension and coronary artery stent placement. Workup in the emergency room revealed mild leukocytosis, elevated lipase, and elevated lactate. CT of the abdomen and pelvis revealed multiple loops of dilated bowel, air-fluid levels, and NG tube placed with bilious dark material over 700 mL. Surgeon was contacted. The patient was started on maintenance fluids with Ringer lactate. Empiric antibiotic was started. The patient was kept NPO. EKG revealed sinus tachycardia, no acute changes. Chest x-ray revealed no acute cardiopulmonary disease. The patient was admitted with diagnosis of abdominal pain, small-bowel obstruction, and acute kidney injury. HOSPITAL COURSE: The patient was admitted to the [facility] floor, initially NPO with bowel rest and bowel decompression with NG tube and IV fluids. Surgery and GI followed. Series of KUB revealed resolving small-bowel obstruction. NG tube was removed. The patient was started on a liquid diet, which was advanced slowly to soft, able to tolerate, initially on advancing diet reported gas pain. Simethicone ordered for symptomatic relief. Workup revealed elevated CEA and elevated CA 99. Stool OB was positive. Oncology consult was requested. Lipase trending down to normal. GI recommended colonoscopy and endoscopy. Colonoscopy and endoscopy were done on 05/13/2016. It revealed gastritis, multiple colonic polyps, at least seven to eight, status post biopsy per GI. Follow up with biopsy of the polyps and treat accordingly. The patient will be contacted for any abnormal results. Recommended to repeat colonoscopy in three weeks. Pancreatitis resolved. The patient was stable for discharge. DISCHARGE DIAGNOSES: 1. High-grade small-bowel obstruction, resolved. 2. Abdominal pain, resolved. 3. Pancreatitis, resolved. 4. Anemia. 5. Elevated tumor markers. 6. Status post EGD and colonoscopy. 7. Gastritis. 8. Multiple colonic polyps, status post removal with biopsy. 9. Occult blood in stool. Of note, Surgery closely followed the patient. As mentioned above, the patient was able to tolerate diet. Small-bowel obstruction resolved. No surgical intervention necessary. Surgeon cleared her for discharge when medically cleared. Blood pressure was managed with the current regimen and was stable. DISCHARGE MEDICATIONS: See medication reconciliation list. DISCHARGE INSTRUCTIONS: The patient is discharged home. Follow up with the primary medical doctor. The patient will be contacted should biopsy of multiple colonic polyps return positive. Phillip Pathak M.D. I have been assigned to dictate discharge summary on this account and I was not involved in the patient's management. Aylin Estescity hospitalSteffany NHannaPHanna DR: PATRIC JOB#: [id number] CC:
--- NOTE | 2016-05-14 23:29 | Diagnostic Imaging Report ---
APPROVED REPORT CPT Code: 67909 Present Symptoms Lower Extremity Pain: Right BILATERAL: Imaging reveals a patent deep venous system bilaterally. There is no evidence of thrombus within the femoral, popliteal or tibial segments. The greater saphenous veins are also within normal limits. Doppler indicates normal spontaneous flow within these segments.
== END 2016-05-13 18:25 | disposition home or self-care (01) | DRG 247 ==
LOC: EDBD 03:35 → EMR 03:45 → 4E 05:08 → EDBEDREQ 09:10 → 2E 14:10 → 4E 05-10 07:30
PROC: 0DBN8ZZ Excision of Sigmoid Colon, Via Natural or Artificial Opening Endoscopic (ICD-10-PCS; 2016-05-13)
PROC: 0DBP8ZZ Excision of Rectum, Via Natural or Artificial Opening Endoscopic (ICD-10-PCS; 2016-05-13)
PROC: 0DB68ZX Excision of Stomach, Via Natural or Artificial Opening Endoscopic, Diagnostic (ICD-10-PCS; principal; 2016-05-13 11:23)
PROC: 0DBL8ZZ Excision of Transverse Colon, Via Natural or Artificial Opening Endoscopic (ICD-10-PCS; 2016-05-13 11:23)
DX: K56.69 Other intestinal obstruction (principal); N17.9 Acute kidney failure, unspecified; K85.90 Acute pancreatitis without necrosis or infection, unspecified; I10 Essential (primary) hypertension; E78.00 Pure hypercholesterolemia, unspecified; Z98.890 Other specified postprocedural states; K29.70 Gastritis, unspecified, without bleeding; K63.5 Polyp of colon; Z88.6 Allergy status to analgesic agent; K44.9 Diaphragmatic hernia without obstruction or gangrene; I25.10 Atherosclerotic heart disease of native coronary artery without angina pectoris; Z95.5 Presence of coronary angioplasty implant and graft; D50.0 Iron deficiency anemia secondary to blood loss (chronic); D63.8 Anemia in other chronic diseases classified elsewhere; R97.0 Elevated carcinoembryonic antigen [CEA]; R19.5 Other fecal abnormalities; D69.6 Thrombocytopenia, unspecified; E46 Unspecified protein-calorie malnutrition; D12.7 Benign neoplasm of rectosigmoid junction; D12.3 Benign neoplasm of transverse colon
CPT/HCPCS: 36415; 71010; 74000; 74020; 74177; 74250; 76700; 80048; 80053; 81003; 82150; 82270; 82378; 82607; 82746; 83540; 83550; 83605; 83690; 83735; 84484; 85007; 85025; 85610; 85730; 86301; 86850; 86900; 86901; 87086; 87493; 93005; 93970; 94003; 94150; J2405

== ENCOUNTER 2017-02-13 02:26 | Inpatient (IN) | payer OTHER ==
[2017-02-13] VITALS (9 sets, daily range): BP systolic 153–226; BP diastolic 76–148
[~2017-02-13] VITALS: Ht 167.6 cm; Wt 81.6 kg
[~2017-02-13 02:26] MED LIST changes: +METOPROLOL TART25 MG ORAL
[2017-02-13] MEDS ORDERED: Morphine Sulfate 4mg/ml Inj ONE (02:49)
[2017-02-13 02:56] LABS: BASOPHILS % (AUTO) 0.6 % (0.0-2.0); LYMPHOCYTES % (AUTO) 12.6 % (20.0-45.0); MEAN CORPUSCULAR HEMOGLOBIN 28.7 PG (27.0-31.0); MEAN CORPUSCULAR HGB CONC 29.3 G/DL (32.0-36.0); MEAN CORPUSCULAR VOLUME 98 FL (80-99); MEAN PLATELET VOLUME 9.4 FL (6.5-10.1); MONOCYTES % (AUTO) 3.5 % (1.0-10.0); NEUTROPHILS % (AUTO) 83.3 % (45.0-75.0); PLATELET COUNT 282 K/UL (150-450); RED CELL DISTRIBUTION WIDTH 18.1 % (11.6-14.8); WHITE BLOOD COUNT 13.5 K/UL (4.8-10.8)
[2017-02-13] MEDS ORDERED: Morphine Sulfate 4mg/ml Inj IVP ONE (03:00)
[2017-02-13] MEDS ORDERED: Heparin 5000 units/ml inj IV ONE (03:00)
[2017-02-13 03:13] LABS: ANION GAP 16 mmol/L (5-15); CALCIUM 11.2 MG/DL (8.5-10.1); CARBON DIOXIDE 24 MMOL/L (21-32); CHLORIDE 98 MMOL/L (98-107); CREATININE 1.4 MG/DL (0.55-1.30); GLOMERULAR FILTRATION RATE 45.8 mL/min (>60); POTASSIUM 3.7 MMOL/L (3.5-5.1); SODIUM 138 MMOL/L (136-145)
--- NOTE | 2017-02-13 03:14 | Emergency Room Report ---
History of Present Illness General Chief Complaint: Abdominal Pain Source: Patient, Family Member, EMS Present Illness HPI 66YOF BIBEMS for abd pain, distended abdomen for 5 hours Associated with nausea Had diarrhea this morning Also c/o SOB but denies chest pain Had SBO recently in 2017 - was resolved with NG suction alone. HPI otherwise limited as initial ECG shows STEMI Rescue 94 brought patient Allergies: Coded Allergies: CODEINE (Unverified Allergy, Severe, Hives, 11/13/13) Patient History Past Medical History: HTN Past Surgical History: other - SBO Pertinent Family History: HTN Social History: Denies: smoking, alcohol use, drug use Last Menstrual Period: NA Now: No Immunizations: UTD Reviewed Nursing Documentation: PMH: Agreed, PSxH: Agreed Nursing Documentation-PMH Hx Cardiac Problems: Yes - CHEST PAIN, CARDIAC STENT Hx Hypertension: Yes Hx Cancer: No Hx Gastrointestinal Problems: Yes - ABDOMINAL PAIN. Hx Neurological Problems: No Review of Systems All Other Systems: negative except mentioned in HPI Physical Exam Vital Signs Date Time Temp Pulse Resp B/P (MAP) Pulse Ox O2 Delivery O2 Flow Rate FiO2 02/13/17 02:25 98.8 120 22 218/148 98 Room Air Sp02 EP Interpretation: reviewed, normal General Appearance: normal inspection, alert, GCS 15, non-toxic, moderate distress, other - Writhing on stretcher Head: normocephalic, atraumatic Eyes: bilateral eye PERRL, bilateral eye EOMI ENT: normal ENT inspection, hearing grossly normal, normal pharynx, no angioedema, normal voice, TMs + canals normal, uvula midline, moist mucus membranes Neck: normal inspection, full range of motion, supple, thyroid normal, no meningismus, no bony tend Respiratory: normal inspection, lungs clear, normal breath sounds, no rhonchi, no respiratory distress, no retraction, no accessory muscle use, no wheezing, speaking full sentences Cardiovascular #1: regular rate, rhythm, no edema, no JVD, normal capillary refill Gastrointestinal: normal inspection, normal bowel sounds, no mass, no peritonitis, non-distended, no guarding, no hernia, no pulsatile mass, distended , other - diffusely tender Genitourinary: no CVA tenderness Musculoskeletal: normal inspection, back normal, normal range of motion, no calf tenderness, pelvis stable, Gerardo's Sign negative Neurologic: normal inspection, alert, oriented x3, responsive, erp technical lead III-XII nml as tested, motor strength/tone normal, cerebellar normal, normal gait, speech normal Psychiatric: normal inspection, judgement/insight normal, mood/affect normal, no suicidal/homicidal ideation, no delusions Skin: normal inspection, normal color, no rash Lymphatic: normal inspection, no adenopathy Procedures Critical Care Time Critical Care Time CC time 45 Critical care time endorsed for this patient for suspected STEMI and abd pain with suspected SBO Critical care time includes review of laboratory tests, imaging, review of EMR, review of paperwork from SNF (if available), discussion with patient and family (if available), review of code status/POLS (if available). Critical care time also likely includes assessment of fluid status, stabilization of vital signs, selection and dosing of appropriate antibiotics, selection and dosing of Aspirin/Plavix/Heparin/Lovenox, discussion with PMD/ attending hospitalist/accounts receivable clerk. Critical care time does not include any procedures which are documented elsewhere in this EMR. Medical Decision Making Diagnostic Impression: Primary Impression: Abdominal pain Qualified Codes: R10.84 - Generalized abdominal pain Additional Impressions: SBO (small bowel obstruction) Hypertension Qualified Codes: I10 - Essential (primary) hypertension Lactic acid acidosis ST elevation ER Course 66YOF with abdominal pain/distention for 5 hours VSD with tachycardia, hypertension, afebrile CT shows recurrent high grade SBO. No free air NG tube placed - General Surg consulted Elevated leuks and lactate - empiric Abx given LR maintenance fluids given Elevated BP - given hydralazine Endorsed to Dr Awad covering for Dr Pathak who was previous admitter at 448am Of note: [address] elevation in Leads 2, 3, AVF with subtle ST depression in 1 and AVL Right sided ECG shows lead 3>2 ST elevation However Trop WNL - expected to be much higher if actual ischemia for 5 hours. Received ASA and heparin bolus in ER for suspected STEMI - but not heparin gtt after WNL troponin Both Dr Flores in ER at [facility] and Dr Khalil in CCU at [facility] "not impressed" with ECGs and suspected STEMI. Refused transfer of patient as of 330am EKG Diagnostic Results Rate: tachycardiac Rhythm: NSR ST Segments: other - ST elevation in inferior leads with reciprocal changes Other Impression Right sided ECG: Lead 3>2 ST elevation Rhythm Strip Diag. Results EP Interpretation: yes Rate: 100 Rhythm: NSR, no PVC's, no ectopy Last Vital Signs Date Time Temp Pulse Resp B/P (MAP) Pulse Ox O2 Delivery O2 Flow Rate FiO2 02/13/17 02:25 98.8 120 22 218/148 98 Room Air Status: improved Disposition: ADMITTED INPATIENT Condition: Critical Referrals: LUCY LOWE,REFERRING (PCP) TACO QUINONES M.D. Feb 13, 2017 03:14
[2017-02-13 03:17] LABS: ALANINE AMINOTRANSFERASE 18 U/L (12-78); ALBUMIN/GLOBULIN RATIO 0.7 (1.0-2.7); ASPARTATE AMINO TRANSFERASE 20 U/L (15-37); LIPASE 819 U/L (73-393); TOTAL PROTEIN 10.3 G/DL (6.4-8.2)
[2017-02-13 03:38] LABS: REFLEX LACTIC ACID YES OR NO YES
[2017-02-13] MEDS ORDERED: LR 1000ml 1,000 ML IV STA (04:10)
[2017-02-13] MEDS ORDERED: Zosyn 3.375gm inj ONE (04:56)
[2017-02-13] MEDS ORDERED: Piperacillin/Tazobactam 3.375 GM in NS 55 ML IVPB ONE (05:00)
[2017-02-13 05:26] LABS: APPEARANCE,URINE CLOUDY; KETONES,URINE NEGATIVE (NEGATIVE); LEUKOCYTE ESTERASE ,URINE 1+ (NEGATIVE); NITRITE,URINE NEGATIVE (NEGATIVE); PH,URINE 5 (4.5-8.0); PROTEIN,URINE 4+ (NEGATIVE); UROBILINOGEN,URINE NORMAL MG/DL (0.0-1.0)
[2017-02-13 05:36] LABS: BACTERIA,URINE MANY /HPF; SQUAMOUS EPITHELIAL CELL,UR FEW /LPF (NONE/OCC); WBC,URINE 0-2 /HPF (0 - 2)
[2017-02-13 05:37] LABS: AMORPHOUS SEDIMENT,UR MANY /LPF; CALCIUM OXALATE CRYSTALS,UR MODERATE /LPF
[2017-02-13] MEDS ORDERED: Morphine Sulfate 2mg/ml Inj ONE (05:51)
[2017-02-13] MEDS ORDERED: Morphine Sulfate 2mg/ml Inj IVP ONE (06:15)
--- NOTE | 2017-02-13 08:31 | History & Physical ---
History and Physical History & Physicial seen and examined. Dictation completed Yinka Awad MD Feb 13, 2017 08:31
--- NOTE | 2017-02-13 11:30 | GI Initial Consult Note ---
JenniferLuz Marina Idris N.PHanna 02/13/17 1130: History of Present Illness General Date patient seen: Feb 13, 2017 Time patient seen: 11:21 Reason for Hospitalization: Abdominal Pain Referring physician: CRISPIN HAY Reason for Consultation: SBO Present Illness HPI 66YOF BIBEMS for abd pain, distended abdomen for 5 hours Associated with nausea Had diarrhea this morning Also c/o SOB but denies chest pain Had SBO recently in 2017 - was resolved with NG suction alone. HPI otherwise limited as initial ECG shows STEMI Rescue 94 brought patient GI consulted for possible SBO. HPI as noted above. GI consulted for evaluation of abdominal pain and distention x 24 hours. No flatus noted per patient. Patient admitted back in April of this year for similar condition where SBO was resolved with bowel decompression. Pt presents today with leukocytosis and elevated lipase. Endoscopy procedure as noted below. Endoscopy Procedure Note Indication for Procedure: anemia Procedures Performed: EGD, colonoscopy Operative Findings/Diagnosis: multiple polyps VILMA BENITEZ - May 13, 2016 11:51 Home Meds Active Scripts Metoprolol Succinate* (TOPROL XL*) 25 Mg Tab.er.24h, 25 MG ORAL DAILY, #30 TAB Prov:Carlton (Belkis)Aylin CONTROL TECHNICIAN 04/08/15 Reported Medications Metoprolol Tartrate* (METOPROLOL TARTRATE*) 25 Mg Tablet, 25 MG ORAL EVERY 12 HOURS, TAB 05/06/16 Ondansetron (Zofran) 4 Mg Tab, 4 MG ORAL Q6H Y for Nausea & Vomiting, TAB 11/19/13 Hydrocodone Bit/Acetaminophen 5-325* (NORCO 5-325 TABLET*) 1 Each Tablet, 1-2 TAB ORAL Q4H Y for For Pain, TAB 11/19/13 Losartan Potassium* (LOSARTAN POTASSIUM*) 50 Mg Tablet, 50 MG ORAL DAILY, TAB 11/13/13 Atorvastatin Calcium* (LIPITOR*) 20 Mg Tablet, 20 MG ORAL BEDTIME, TAB 11/13/13 Aspirin* (ASPIRIN*) 81 Mg Tab.chew, 81 MG ORAL DAILY, TAB 11/13/13 Metoprolol Tartrate (Metoprolol Tartrate) 25 Mg Tab, 50 MG ORAL BID Y for For High Blood Pressure, TAB 11/13/13 Hydrochlorothiazide* (HYDROCHLOROTHIAZIDE*) 25 Mg Tablet, 25 MG ORAL DAILY, TAB 11/13/13 Amlodipine Besylate* (AMLODIPINE BESYLATE*) 10 Mg Tablet, 10 MG ORAL DAILY, TAB 11/13/13 Multivitamin (Multivitamins) 1 Each Tablet, 1 EACH PO DAILY Y for Abdominal cramps, TAB 11/13/13 Clonidine HCl (Clonidine HCl) 0.1 Mg Tab, 0.1 MG GT BID, TAB 11/13/13 Med list reviewed/reconciled: Yes Allergies: Coded Allergies: CODEINE (Unverified Allergy, Severe, Hives, 11/13/13) Patient History History Provided By: Patient PMH Narrative Past Medical History: HTN Past Surgical History: other - SBO Pertinent Family History: HTN Social History: Denies: smoking, alcohol use, drug use Last Menstrual Period: NA Now: No Immunizations: UTD Reviewed Nursing Documentation: PMH: Agreed, PSxH: Agreed Nursing Documentation-PMH Hx Cardiac Problems: Yes - CHEST PAIN, CARDIAC STENT Hx Hypertension: Yes Hx Cancer: No Hx Gastrointestinal Problems: Yes - ABDOMINAL PAIN. Hx Neurological Problems: No Social History: Denies: smoking, alcohol use, drug use, other Review of Systems All Other Systems: negative except mentioned in HPI Physical Exam Vital Signs Date Time Temp Pulse Resp B/P (MAP) Pulse Ox O2 Delivery O2 Flow Rate FiO2 02/13/17 02:25 98.8 120 22 218/148 98 Room Air Sp02 EP Interpretation: reviewed, normal Labs Laboratory Tests Test 02/13/17 02:40 02/13/17 02:51 02/13/17 03:40 02/13/17 05:30 White Blood Count 13.5 K/UL (4.8-10.8) H Red Blood Count 4.80 M/UL (4.20-5.40) Hemoglobin 13.8 G/DL (12.0-16.0) Hematocrit 47.0 % (37.0-47.0) Mean Corpuscular Volume 98 FL (80-99) Mean Corpuscular Hemoglobin 28.7 PG (27.0-31.0) Mean Corpuscular Hemoglobin Concent 29.3 G/DL (32.0-36.0) L Red Cell Distribution Width 18.1 % (11.6-14.8) H Platelet Count 282 K/UL (150-450) Mean Platelet Volume 9.4 FL (6.5-10.1) Neutrophils (%) (Auto) 83.3 % (45.0-75.0) H Lymphocytes (%) (Auto) 12.6 % (20.0-45.0) L Monocytes (%) (Auto) 3.5 % (1.0-10.0) Eosinophils (%) (Auto) 0.0 % (0.0-3.0) Basophils (%) (Auto) 0.6 % (0.0-2.0) Activated Partial Thromboplast Time 25 SEC (23-33) Sodium Level 138 MMOL/L (136-145) Potassium Level 3.7 MMOL/L (3.5-5.1) Chloride Level 98 MMOL/L (98-107) Carbon Dioxide Level 24 MMOL/L (21-32) Anion Gap 16 mmol/L (5-15) H Blood Urea Nitrogen 26 mg/dL (7-18) H Creatinine 1.4 MG/DL (0.55-1.30) H Estimat Glomerular Filtration Rate 45.8 mL/min (>60) Glucose Level 304 MG/DL (74-106) H Calcium Level 11.2 MG/DL (8.5-10.1) H Total Bilirubin 0.8 MG/DL (0.2-1.0) Aspartate Amino Transf (AST/SGOT) 20 U/L (15-37) Alanine Aminotransferase (ALT/SGPT) 18 U/L (12-78) Alkaline Phosphatase 112 U/L (46-116) Total Protein 10.3 G/DL (6.4-8.2) H Albumin 4.4 G/DL (3.4-5.0) Globulin 5.9 g/dL Albumin/Globulin Ratio 0.7 (1.0-2.7) L Lipase 819 U/L (73-393) H Lactic Acid Level 3.70 mmol/L (0.66-2.22) H Troponin I 0.021 ng/mL (0.000-0.056) Urine Color Yellow Urine Appearance Cloudy Urine pH 5 (4.5-8.0) Urine Specific [place] 1.025 (1.005-1.035) Urine Protein 4+ (NEGATIVE) H Urine Glucose (UA) 1+ (NEGATIVE) H Urine Ketones Negative (NEGATIVE) Urine Occult Blood 2+ (NEGATIVE) H Urine Nitrite Negative (NEGATIVE) Urine Bilirubin Negative (NEGATIVE) Urine Urobilinogen Normal MG/DL (0.0-1.0) Urine Leukocyte Esterase 1+ (NEGATIVE) H Urine RBC 5-10 /HPF (0 - 2) H Urine WBC 0-2 /HPF (0 - 2) Urine Squamous Epithelial Cells Few /LPF (NONE/OCC) Urine Calcium Oxalate Crystals Moderate /LPF (NONE) Urine Amorphous Sediment Many /LPF (NONE) H Urine Bacteria Many /HPF (NONE) H Test 02/13/17 09:20 Lactic Acid Level 1.50 mmol/L (0.66-2.22) General Appearance: well appearing, no apparent distress, alert, thin Head: normocephalic EENT: PERRL/EOMI, normal ENT inspection Neck: supple Respiratory: normal breath sounds, no respiratory distress Cardiovascular: normal rate Gastrointestinal: soft, distended, tenderness Rectal: deferred Genitourinary: no CVA tenderness Musculoskeletal: normal inspection, back normal Neurologic: normal inspection, alert, oriented x3, responsive Psychiatric: normal inspection, judgement/insight normal, memory normal Skin: normal inspection, normal color, no rash, warm/dry, palpation normal, well hydrated Lymphatic: normal inspection, no adenopathy Current Medications Current Medications Medications (Trade) Dose Ordered Sig/Talita Route PRN Reason Start Time Stop Time Status Last Admin Dose Admin Furosemide (Lasix) 40 mg Q12HR IV 02/13/17 09:00 03/15/17 08:59 02/13/17 08:56 Ondansetron HCl (Zofran) 4 mg Q4H PRN IVP Nausea & Vomiting 02/13/17 08:15 03/15/17 08:14 02/13/17 08:56 Piperacillin Sod/ Tazobactam Sod 3.375 gm/Dextrose 55 ml @ 13.75 mls/ hr EVERY 8 HOURS IVPB 02/13/17 11:00 02/20/17 10:59 GI: Plan Problems: (1) SBO (small bowel obstruction) (2) Abdominal pain (3) Lactic acid acidosis Plan fu surgical recommendations bowel decompression >> maintain NGT to LCIS strict NPO + IV hydration serial imaging studies >> fu CT AP PPI fu labs, lipase levels Discussed with Dr. Benitez. Thank you for referring this patient, we will follow. TOBYKANDYD 02/14/17 0917: History of Present Illness General Reason for Hospitalization: Abdominal Pain Present Illness Home Meds Active Scripts Metoprolol Succinate* (TOPROL XL*) 25 Mg Tab.er.24h, 25 MG ORAL DAILY, #30 TAB Prov:Carlton (Belkis)Aylin CONTROL TECHNICIAN 04/08/15 Reported Medications Metoprolol Tartrate* (METOPROLOL TARTRATE*) 25 Mg Tablet, 25 MG ORAL EVERY 12 HOURS, TAB 05/06/16 Ondansetron (Zofran) 4 Mg Tab, 4 MG ORAL Q6H Y for Nausea & Vomiting, TAB 11/19/13 Hydrocodone Bit/Acetaminophen 5-325* (NORCO 5-325 TABLET*) 1 Each Tablet, 1-2 TAB ORAL Q4H Y for For Pain, TAB 11/19/13 Losartan Potassium* (LOSARTAN POTASSIUM*) 50 Mg Tablet, 50 MG ORAL DAILY, TAB 11/13/13 Atorvastatin Calcium* (LIPITOR*) 20 Mg Tablet, 20 MG ORAL BEDTIME, TAB 11/13/13 Aspirin* (ASPIRIN*) 81 Mg Tab.chew, 81 MG ORAL DAILY, TAB 11/13/13 Metoprolol Tartrate (Metoprolol Tartrate) 25 Mg Tab, 50 MG ORAL BID Y for For High Blood Pressure, TAB 11/13/13 Hydrochlorothiazide* (HYDROCHLOROTHIAZIDE*) 25 Mg Tablet, 25 MG ORAL DAILY, TAB 11/13/13 Amlodipine Besylate* (AMLODIPINE BESYLATE*) 10 Mg Tablet, 10 MG ORAL DAILY, TAB 11/13/13 Multivitamin (Multivitamins) 1 Each Tablet, 1 EACH PO DAILY Y for Abdominal cramps, TAB 11/13/13 Clonidine HCl (Clonidine HCl) 0.1 Mg Tab, 0.1 MG GT BID, TAB 11/13/13 Allergies: Coded Allergies: CODEINE (Unverified Allergy, Severe, Hives, 11/13/13) GI: Plan Plan The patient was seen and examined at bedside and all new and available data was reviewed in the patients chart. I agree with the above findings, impression and plan. (Patient seen earlier today. Signature stamp does not reflect patient encounter time.). - MD Jennifer Villafuerte,[facility] Idris N.P. Feb 13, 2017 11:30 IVLMA BENITEZ Feb 14, 2017 09:17
--- NOTE | 2017-02-13 11:41 | Diagnostic Imaging Report ---
Indication: Abdominal pain Technique: Spiral acquisitions obtained through the abdomen and pelvis. No oral contrast utilized, per emergency room physician request No IV contrast utilized, per referring physician request.. Multiplanar reconstructions were generated. Total dose length product 884.44 mGycm. CTDIvol(s) 16.82 mGy. Dose reduction achieved using automated exposure control Comparison: Plain radiographs one hour earlier Findings: There is a fracture of the left inferior pubic ramus. This is displaced by this underlying bone width No other fractures are demonstrated. No evidence of hip fracture. There are degenerative changes of the pubic symphysis. There is mild degenerative change of the right sacroiliac joint. The hip joint spaces are preserved. Ascites fluid is seen in the pelvis. The uterus demonstrates arcuate artery calcifications. Diverticulosis is incidentally noted. No significant soft tissue hematoma demonstrated. There is mild generalized edema of the subcutaneous fat. Impression: Positive for minimally displaced inferior pubic ramus fracture on the left. Other findings as noted, including ascites, colonic diverticulosis, soft tissue edema, degenerative changes This agrees with the preliminary interpretation provided overnight by [facility] teleradiology service. The CT scanner at [facility] is accredited by the [employer] [place] [employer] and the scans are performed using protocols designed to limit radiation exposure to as low as reasonably achievable to attain images of sufficient resolution adequate for diagnostic evaluation.
[2017-02-13] MEDS: Piperacillin/Tazobactam 3.375 GM in D5W 55 ML IVPB SCH ×2 (12:32→20:08)
--- NOTE | 2017-02-13 12:41 | Diagnostic Imaging Report ---
Indication: Status post nasogastric tube placement Technique: Supine view of the abdomen Comparison: 05/08/2016; also gastroenterology manager image from CT scan performed 2 hours earlier Findings: Interim placement of a nasogastric tube, tip which projects at the level of the gastric antrum, proximal port well within the gastric lumen. There is a decreased caliber of the stomach. A few prominent gas-filled small bowel loops are again demonstrated, although gaseous distention appears decreased Impression: Satisfactory nasogastric intubation Somewhat decreased gastric and small bowel distention since CT scan of 2 hours earlier
--- NOTE | 2017-02-13 13:17 | General Surgery Progress Note ---
General Surgery-Progress Note Subjective Symptoms: passing flatus Objective Last 24 Hour Vital Signs Date Time Temp Pulse Resp B/P (MAP) Pulse Ox O2 Delivery O2 Flow Rate FiO2 02/13/17 12:00 98.0 89 20 153/79 97 Room Air 02/13/17 08:00 97.6 90 20 167/97 95 Room Air 02/13/17 08:00 89 02/13/17 06:35 98.8 89 22 163/76 98 Room Air 02/13/17 06:20 89 22 163/76 98 Room Air 02/13/17 06:09 203/101 02/13/17 04:30 89 25 226/111 95 Room Air 02/13/17 04:20 220/110 02/13/17 03:35 98.8 02/13/17 02:35 98.8 22 218/148 98 Room Air 02/13/17 02:25 98.8 120 22 218/148 98 Room Air I&O Intake and Output 02/12/17 02/13/17 19:00 07:00 Intake Total 0 ml Balance 0 ml Intake Oral 0 ml Respiratory: clear Abdomen: distended, tenderness, present bowel sounds Extremities: no tenderness Laboratory Tests Test 02/13/17 02:40 02/13/17 02:51 02/13/17 03:40 02/13/17 05:30 White Blood Count 13.5 K/UL (4.8-10.8) H Red Blood Count 4.80 M/UL (4.20-5.40) Hemoglobin 13.8 G/DL (12.0-16.0) Hematocrit 47.0 % (37.0-47.0) Mean Corpuscular Volume 98 FL (80-99) Mean Corpuscular Hemoglobin 28.7 PG (27.0-31.0) Mean Corpuscular Hemoglobin Concent 29.3 G/DL (32.0-36.0) L Red Cell Distribution Width 18.1 % (11.6-14.8) H Platelet Count 282 K/UL (150-450) Mean Platelet Volume 9.4 FL (6.5-10.1) Neutrophils (%) (Auto) 83.3 % (45.0-75.0) H Lymphocytes (%) (Auto) 12.6 % (20.0-45.0) L Monocytes (%) (Auto) 3.5 % (1.0-10.0) Eosinophils (%) (Auto) 0.0 % (0.0-3.0) Basophils (%) (Auto) 0.6 % (0.0-2.0) Activated Partial Thromboplast Time 25 SEC (23-33) Sodium Level 138 MMOL/L (136-145) Potassium Level 3.7 MMOL/L (3.5-5.1) Chloride Level 98 MMOL/L (98-107) Carbon Dioxide Level 24 MMOL/L (21-32) Anion Gap 16 mmol/L (5-15) H Blood Urea Nitrogen 26 mg/dL (7-18) H Creatinine 1.4 MG/DL (0.55-1.30) H Estimat Glomerular Filtration Rate 45.8 mL/min (>60) Glucose Level 304 MG/DL (74-106) H Calcium Level 11.2 MG/DL (8.5-10.1) H Total Bilirubin 0.8 MG/DL (0.2-1.0) Aspartate Amino Transf (AST/SGOT) 20 U/L (15-37) Alanine Aminotransferase (ALT/SGPT) 18 U/L (12-78) Alkaline Phosphatase 112 U/L (46-116) Total Protein 10.3 G/DL (6.4-8.2) H Albumin 4.4 G/DL (3.4-5.0) Globulin 5.9 g/dL Albumin/Globulin Ratio 0.7 (1.0-2.7) L Lipase 819 U/L (73-393) H Lactic Acid Level 3.70 mmol/L (0.66-2.22) H Troponin I 0.021 ng/mL (0.000-0.056) Urine Color Yellow Urine Appearance Cloudy Urine pH 5 (4.5-8.0) Urine Specific [place] 1.025 (1.005-1.035) Urine Protein 4+ (NEGATIVE) H Urine Glucose (UA) 1+ (NEGATIVE) H Urine Ketones Negative (NEGATIVE) Urine Occult Blood 2+ (NEGATIVE) H Urine Nitrite Negative (NEGATIVE) Urine Bilirubin Negative (NEGATIVE) Urine Urobilinogen Normal MG/DL (0.0-1.0) Urine Leukocyte Esterase 1+ (NEGATIVE) H Urine RBC 5-10 /HPF (0 - 2) H Urine WBC 0-2 /HPF (0 - 2) Urine Squamous Epithelial Cells Few /LPF (NONE/OCC) Urine Calcium Oxalate Crystals Moderate /LPF (NONE) Urine Amorphous Sediment Many /LPF (NONE) H Urine Bacteria Many /HPF (NONE) H Test 02/13/17 09:20 Lactic Acid Level 1.50 mmol/L (0.66-2.22) Assessment Additional Comments Small Bowel Obstruction Plan Additional Comments conservative treatment BROOKE VEGA Feb 13, 2017 13:17
--- NOTE | 2017-02-13 15:45 | Consultation ---
DATE OF CONSULTATION: 02/13/2017 REQUESTING PHYSICIAN: Yinka Awad M.D. REASON FOR CONSULTATION: Abdominal pain and vomiting. HISTORY OF PRESENT ILLNESS: This is a 66-year-old female, who presented to emergency room complaining of abdominal pain since yesterday afternoon. The pain was steady at all over the abdomen and associated with nausea and vomiting. She claimed that yesterday morning she had diarrhea, but since the pain has started she did not have any bowel movement, but she has passed gas. She stated that her abdomen was very distended, but at the present time it has reduced. The patient stated that in May she had the same episode, which was treated conservatively at this hospital. PAST MEDICAL HISTORY: She claims to be allergic to codeine. She denies asthma and renal diseases. She has a history of hypertension and coronary artery disease. PAST SURGICAL HISTORY: Cardiac angioplasty and stent placement x2, hysterectomy in 1991, hiatal hernia surgery in 2001 and hemorrhoidectomy. MEDICATIONS: Please see the medicine reconciliation form. SOCIAL HISTORY: The patient is a 66-year-old Portuguese female, who is with three children. Unemployed. She smokes and drinks occasionally. REVIEW OF SYSTEMS: Noncontributory. PHYSICAL EXAMINATION: GENERAL: He is black, appeared to be a well-developed and well-nourished 66-year-old female, lying in bed, in no acute distress. HEENT: Head is normocephalic and atraumatic. Eyes, pupils are equal, round, and reactive to light. Mouth is clear. NECK: There is no palpable thyromegaly or adenopathy. CHEST: Clear to auscultation and percussion. HEART: There is no gallop or murmur. S1 and S2 are within normal limit. ABDOMEN: Moderately distended, but soft with tenderness at the lower abdomen. There is no guarding or rebound tenderness. Bowel sounds are present. She has a scar of the midline incision below the umbilicus and she has a scar of the transverse incision on the left upper quadrant of the abdomen. She has a scar of the laparoscopy at the upper abdomen GENITAL: Deferred. EXTREMITIES: Within normal limits. LABORATORY AND DIAGNOSTIC DATA: CBC has shown a WBC of 13,500 with a left shift. Chemistry is all within normal limits except for the creatinine, which is 1.4 and BUN of 26. Total protein of 10.3 with a globulin of 5.9 and albumin of 4.4. Lactic acid of 3.7. The CT scan of the abdomen has been interpreted as small bowel obstruction. ASSESSMENT: Small bowel obstruction. PLAN: At this time, the patient requires conservative treatment, which consist of intravenous fluids and NG tube suctioning and if her condition does not improve, she might require exploratory laparotomy and lysis of the adhesion. Wan Amaral M.D. DR: CARINE JOB#: [id number] CC:
[2017-02-13] MEDS ORDERED: Enalaprilat 2.5mg/2ml Inj IV PRN ×3 (16:30→21:40)
--- NOTE | 2017-02-13 19:38 | Consultation ---
Consult Note Consult Note [id number] ANA RODRIGUEZ M.D. Feb 13, 2017 19:38
[2017-02-13] MEDS ORDERED: Enalaprilat 2.5mg/2ml Inj IV ONE (20:05)
--- NOTE | 2017-02-13 20:30 | History and Physical Report ---
DATE OF ADMISSION: 02/13/2017 SOURCE OF INFORMATION: The patient and EMR. HISTORY OF PRESENT ILLNESS: The patient is a 66-year-old female. She has a prior history of hiatal hernia surgery. The patient presented with the increasing amount of distention and pain in the abdomen for the last 1 to 2 weeks. At that time, this also is associated with the serial episodes of nausea and vomitus. No blood. No diarrhea. Last time of bowel movement unknown. PAST SURGICAL HISTORY: Hiatal hernia, 15 years ago and uterus surgery likely hysterectomy. MEDICATIONS: Current hospital medications including, but not limited to Zofran and saline. ALLERGIES: To codeine. SOCIAL HISTORY: Positive for history of smoking. Positive for history of alcohol abuse. The patient has 2 children. The patient is living with her . FAMILY HISTORY: Reviewed and noncontributory. PHYSICAL EXAMINATION: VITAL SIGNS: Blood pressure 218/150, temperature 98.2, respiratory rate 18 to 20, pulse oximetry 98% on room air, pulse rate 80 to 90. HEAD AND NECK: Atraumatic and normocephalic. CHEST: Clear to auscultation. HEART: S1 and S2. Tachycardic. ABDOMEN: Positive for distention. Positive for tenderness. Negative for rebound tenderness. NEUROLOGIC: Awake, alert and oriented x3. LABORATORY AND DIAGNOSTIC DATA: Labs dated 02/13/2017 shows WBC 13.5, hemoglobin 13.8, and platelets of 282. Sodium 138, potassium 3.7, BUN 26 and creatinine 1.4. Lactic acid of 3.7. Lipase 819. Abdominal x-ray was obtained, results pending. ASSESSMENT: 1. Acute abdomen. 2. Small-bowel obstruction. 3. Hypertensive emergency. 4. Abnormal EKG. 5. Pancreatitis (acute/chronic?) 6. Gastrointestinal and deep vein thrombosis prophylaxes. 7. Alcoholism. PLAN OF CARE: Dr. Amaral, surgeon is already consulted. Gastrointestinal Dr. Benitez is consulted. Dr. Simmons is consulted. We will continue with tele monitoring. Keep the patient NPO. Yinka Awad M.D. DR: JOHN JOB#: [id number] CC:
[2017-02-13] MEDS ORDERED: Metoprolol 5mg/5ml Inj IVP PRN ×2 (21:30→21:45)
--- NOTE | 2017-02-13 21:30 | Cardiology Progress Note ---
Assessment/Plan Assessment/Plan The patient is seen and examined, full consult note will be dictated. Objective Last 24 Hour Vital Signs Date Time Temp Pulse Resp B/P (MAP) Pulse Ox O2 Delivery O2 Flow Rate FiO2 02/13/17 20:08 193/103 02/13/17 18:38 92 193/103 02/13/17 18:37 93 197/101 02/13/17 16:46 203/103 02/13/17 16:00 117 02/13/17 16:00 97.2 92 20 193/104 96 Room Air 02/13/17 12:00 98.0 89 20 153/79 97 Room Air 02/13/17 12:00 89 02/13/17 08:00 97.6 90 20 167/97 95 Room Air 02/13/17 08:00 89 02/13/17 06:35 98.8 89 22 163/76 98 Room Air 02/13/17 06:20 89 22 163/76 98 Room Air 02/13/17 06:09 203/101 02/13/17 04:30 89 25 226/111 95 Room Air 02/13/17 04:20 220/110 02/13/17 03:35 98.8 02/13/17 02:35 98.8 22 218/148 98 Room Air 02/13/17 02:25 98.8 120 22 218/148 98 Room Air Intake and Output 02/12/17 02/13/17 19:00 07:00 Intake Total 0 ml Balance 0 ml Intake Oral 0 ml Laboratory Tests Test 02/13/17 02:40 02/13/17 02:51 02/13/17 03:40 02/13/17 05:30 White Blood Count 13.5 K/UL (4.8-10.8) H Red Blood Count 4.80 M/UL (4.20-5.40) Hemoglobin 13.8 G/DL (12.0-16.0) Hematocrit 47.0 % (37.0-47.0) Mean Corpuscular Volume 98 FL (80-99) Mean Corpuscular Hemoglobin 28.7 PG (27.0-31.0) Mean Corpuscular Hemoglobin Concent 29.3 G/DL (32.0-36.0) L Red Cell Distribution Width 18.1 % (11.6-14.8) H Platelet Count 282 K/UL (150-450) Mean Platelet Volume 9.4 FL (6.5-10.1) Neutrophils (%) (Auto) 83.3 % (45.0-75.0) H Lymphocytes (%) (Auto) 12.6 % (20.0-45.0) L Monocytes (%) (Auto) 3.5 % (1.0-10.0) Eosinophils (%) (Auto) 0.0 % (0.0-3.0) Basophils (%) (Auto) 0.6 % (0.0-2.0) Activated Partial Thromboplast Time 25 SEC (23-33) Sodium Level 138 MMOL/L (136-145) Potassium Level 3.7 MMOL/L (3.5-5.1) Chloride Level 98 MMOL/L (98-107) Carbon Dioxide Level 24 MMOL/L (21-32) Anion Gap 16 mmol/L (5-15) H Blood Urea Nitrogen 26 mg/dL (7-18) H Creatinine 1.4 MG/DL (0.55-1.30) H Estimat Glomerular Filtration Rate 45.8 mL/min (>60) Glucose Level 304 MG/DL (74-106) H Calcium Level 11.2 MG/DL (8.5-10.1) H Total Bilirubin 0.8 MG/DL (0.2-1.0) Aspartate Amino Transf (AST/SGOT) 20 U/L (15-37) Alanine Aminotransferase (ALT/SGPT) 18 U/L (12-78) Alkaline Phosphatase 112 U/L (46-116) Total Protein 10.3 G/DL (6.4-8.2) H Albumin 4.4 G/DL (3.4-5.0) Globulin 5.9 g/dL Albumin/Globulin Ratio 0.7 (1.0-2.7) L Lipase 819 U/L (73-393) H Lactic Acid Level 3.70 mmol/L (0.66-2.22) H Troponin I 0.021 ng/mL (0.000-0.056) Urine Color Yellow Urine Appearance Cloudy Urine pH 5 (4.5-8.0) Urine Specific [place] 1.025 (1.005-1.035) Urine Protein 4+ (NEGATIVE) H Urine Glucose (UA) 1+ (NEGATIVE) H Urine Ketones Negative (NEGATIVE) Urine Occult Blood 2+ (NEGATIVE) H Urine Nitrite Negative (NEGATIVE) Urine Bilirubin Negative (NEGATIVE) Urine Urobilinogen Normal MG/DL (0.0-1.0) Urine Leukocyte Esterase 1+ (NEGATIVE) H Urine RBC 5-10 /HPF (0 - 2) H Urine WBC 0-2 /HPF (0 - 2) Urine Squamous Epithelial Cells Few /LPF (NONE/OCC) Urine Calcium Oxalate Crystals Moderate /LPF (NONE) Urine Amorphous Sediment Many /LPF (NONE) H Urine Bacteria Many /HPF (NONE) H Test 02/13/17 09:20 Lactic Acid Level 1.50 mmol/L (0.66-2.22) MELA FLEMING Feb 13, 2017 21:30
[2017-02-13] MEDS ORDERED: Morphine Sulfate 2mg/ml Inj IM PRN (23:15)
[2017-02-13] MEDS: Morphine Sulfate 2mg/ml Inj IVP PRN (23:47)
[2017-02-14] VITALS: BP 170/99
[2017-02-14] MEDS ORDERED: Enalaprilat 2.5mg/2ml Inj IV PRN (03:40)
[2017-02-14 04:00] VITALS: BP 188/98
[2017-02-14] MEDS: Enalaprilat 2.5mg/2ml Inj IV PRN ×2 (04:02→09:11)
[2017-02-14 05:45] LABS: BASOPHILS % (AUTO) 0.5 % (0.0-2.0); EOSINOPHILS % (AUTO) 0.1 % (0.0-3.0); LYMPHOCYTES % (AUTO) 19.4 % (20.0-45.0); MEAN CORPUSCULAR HEMOGLOBIN 28.5 PG (27.0-31.0); MEAN CORPUSCULAR HGB CONC 29.6 G/DL (32.0-36.0); MEAN CORPUSCULAR VOLUME 96 FL (80-99); MONOCYTES % (AUTO) 7.8 % (1.0-10.0); NEUTROPHILS % (AUTO) 72.3 % (45.0-75.0); PLATELET COUNT 209 K/UL (150-450); RED BLOOD COUNT 4.03 M/UL (4.20-5.40); WHITE BLOOD COUNT 7.5 K/UL (4.8-10.8)
[2017-02-14 05:48] LABS: AMYLASE 71 U/L (25-115); ANION GAP 10 mmol/L (5-15); CALCIUM 8.6 MG/DL (8.5-10.1); CARBON DIOXIDE 31 MMOL/L (21-32); CHLORIDE 101 MMOL/L (98-107); CREATININE 1.1 MG/DL (0.55-1.30); GLOMERULAR FILTRATION RATE > 60 mL/min (>60); LIPASE 108 U/L (73-393); POTASSIUM 3.6 MMOL/L (3.5-5.1); SODIUM 142 MMOL/L (136-145)
[2017-02-14] MEDS: Piperacillin/Tazobactam 3.375 GM in D5W 55 ML IVPB SCH ×2 (06:09→15:47)
[2017-02-14] MEDS: Morphine Sulfate 2mg/ml Inj IVP PRN (06:16)
--- NOTE | 2017-02-14 07:15 | Consultation ---
DATE OF CONSULTATION: 02/13/2017 INFECTIOUS DISEASES CONSULTATION CONSULTING PHYSICIAN: Greg Abdalla M.D. ATTENDING/REQUESTING PHYSICIAN: Yinka Awad M.D. REASON FOR CONSULTATION: Evaluation of the patient for possible intra-abdominal sepsis, antibiotic management. HISTORY OF PRESENT ILLNESS: The patient is a 66-year-old female, who came to the hospital with abdominal pain. The patient was found with small-bowel obstruction, however, the patient had second episode prior to that, it was eight months ago. The patient has been started on IV antibiotics. Infectious disease consultation has been requested for further evaluation of the patient and antibiotic management. PAST MEDICAL HISTORY: 1. Hypertension. 2. CAD. 3. Status post stents, cardiac angiogram. 4. Hysterectomy in 1991. 5. Hiatal hernia surgery in 2001. MEDICATIONS: IV Zosyn. SOCIAL HISTORY: Significant for smoking tobacco. REVIEW OF SYSTEMS: HEENT: No recent change in vision or hearing. PULMONARY: No cough or shortness of breath. CARDIOVASCULAR: No chest pain or palpitations. GASTROINTESTINAL/ABDOMEN: As mentioned. GENITOURINARY: No dysuria. MUSCULOSKELETAL: No pain in extremity. NEUROLOGIC: No history of seizure. PHYSICAL EXAMINATION: VITAL SIGNS: Temperature 98.4, blood pressure 184/92, pulse 86, and respiratory rate 18. HEENT: No pale conjunctivae. No icterus. NECK: No lymphadenopathy. CHEST: Clear. HEART: S1 and S2. ABDOMEN: Soft. Mildly distended. Mild tenderness. NEUROLOGIC: Awake and alert. EXTREMITIES: No cyanosis. SKIN: No rash. LABORATORY AND DIAGNOSTIC DATA: 13, hemoglobin 13, and platelets 282,000. UA unremarkable. BUN 20 and creatinine 1.4. Liver function tests unremarkable. Abdominal x-ray shows small bowel distention. CT scan of the abdomen earlier shows ascites, diverticulosis, and soft tissue edema. ASSESSMENT: 1. Leukocytosis. 2. Afebrile. 3. Small bowel obstruction, ascites which appeared on CT scan. 4. Acute renal insufficiency. PLAN: 1. We will continue the patient on IV Zosyn. 2. Monitor CBC. 3. Monitor BMP. 4. Monitor urine culture. 5. Monitor GI workups. 6. We will follow GI and surgical recommendations. 7. Based on the patient's clinical course and laboratories, we will do further recommendation. Thank you, Dr. Awad, for allowing me to participate in the care of this patient. I will follow the patient with you during this hospitalization. Greg Abdalla M.D. DR: CAROLINE JOB#: [id number] CC:
[2017-02-14 08:00] VITALS: BP 192/82
[2017-02-14] MEDS ORDERED: D5 1/2NS 1,000 ML IV SCH (09:00)
--- NOTE | 2017-02-14 09:19 | General Progress Note ---
Assessment/Plan Status: stable Assessment/Plan 1. Acute abdomen. 2. Small-bowel obstruction. 3. Hypertensive emergency. 4. Abnormal EKG. 5. Pancreatitis (acute/chronic?) 6. Gastrointestinal and deep vein thrombosis prophylaxes. 7. Alcoholism. Plan: Gi-series studies today Stable current management Surgeon, Dr Amaral's management Cardiology management for BP control Subjective ROS Limited/Unobtainable: No Constitutional: Reports: weakness HEENT: Reports: no symptoms Cardiovascular: Reports: no symptoms Gastrointestinal/Abdominal: Reports: abdomen distended Neurologic/Psychiatric: Reports: no symptoms Allergies: Coded Allergies: CODEINE (Unverified Allergy, Severe, Hives, 11/13/13) Objective Last 24 Hour Vital Signs Date Time Temp Pulse Resp B/P (MAP) Pulse Ox O2 Delivery O2 Flow Rate FiO2 02/14/17 09:11 192/82 02/14/17 08:00 97.5 74 20 192/82 96 Room Air 02/14/17 08:00 88 02/14/17 06:46 98.0 02/14/17 04:02 207/108 02/14/17 04:00 98.0 68 20 188/98 96 Room Air 02/14/17 04:00 83 02/14/17 00:00 97 02/14/17 00:00 98.1 82 20 170/99 96 Room Air 02/13/17 23:41 80 170/99 02/13/17 20:08 193/103 02/13/17 20:00 98.4 81 20 192/92 96 Room Air 02/13/17 20:00 88 02/13/17 18:38 92 193/103 02/13/17 18:37 93 197/101 02/13/17 16:46 203/103 02/13/17 16:00 117 02/13/17 16:00 97.2 92 20 193/104 96 Room Air 02/13/17 12:00 98.0 89 20 153/79 97 Room Air 02/13/17 12:00 89 Intake and Output 02/13/17 02/14/17 19:00 07:00 Output Total 50 ml 500 ml Balance -50 ml -500 ml Output Urine Total 250 ml Other 50 ml 250 ml # Voids 6 4 # Bowel Movements 1 Laboratory Tests 02/13/17 09:20: Lactic Acid Level 1.50 02/14/17 00:00: Urine Opiates Screen Negative, Urine Barbiturates Screen Negative, Phencyclidine (PCP) Screen Negative, Urine Amphetamines Screen Negative, Urine Benzodiazepines Screen Negative, Urine Cocaine Screen Negative, Urine Marijuana (THC) Screen Negative 02/14/17 03:10: White Blood Count 7.5, Red Blood Count 4.03L, Hemoglobin 11.5L, Hematocrit 38.8 , Mean Corpuscular Volume 96, Mean Corpuscular Hemoglobin 28.5, Mean Corpuscular Hemoglobin Concent 29.6L, Red Cell Distribution Width 18.0H, Platelet Count 209, Mean Platelet Volume 10.0, Neutrophils (%) (Auto) 72.3, Lymphocytes (%) (Auto) 19.4L, Monocytes (%) (Auto) 7.8, Eosinophils (%) (Auto) 0.1, Basophils (%) (Auto) 0.5, Sodium Level 142, Potassium Level 3.6, Chloride Level 101, Carbon Dioxide Level 31, Anion Gap 10, Blood Urea Nitrogen 26H, Creatinine 1.1, Estimat Glomerular Filtration Rate > 60, Glucose Level 87#, Calcium Level 8.6#, Amylase Level 71, Lipase 108 Height (Feet): 5 Height (Inches): 6.00 Weight (Pounds): 180 General Appearance: WD/WN, no apparent distress EENT: PERRL/EOMI Neck: supple Cardiovascular: normal rate Respiratory/Chest: lungs clear Abdomen: distended, guarding, other - no rebound Extremities: non-tender 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
[2017-02-14 12:00] VITALS: BP 167/98
--- NOTE | 2017-02-14 13:46 | GI Progress Note ---
Assessment/Plan Problems: (1) SBO (small bowel obstruction) ICD Codes: K56.609 - Unspecified intestinal obstruction, unspecified as to partial versus complete obstruction SNOMED: 438905447 (2) Lactic acid acidosis ICD Codes: E87.2 - Acidosis SNOMED: 52081837 (3) Abdominal pain ICD Codes: R10.9 - Unspecified abdominal pain SNOMED: 86569246 Qualifiers: Qualified Codes: R10.84 - Generalized abdominal pain (4) Anemia ICD Codes: D64.9 - Anemia, unspecified SNOMED: 006022411 Status: unchanged Status Narrative Discussed with Dr. Benitez. Assessment/Plan utox negative >> lipase WNL today fu surgical recommendations >> - SBFT today - trial CLD bowel decompression >> maintain NGT to LCIS serial imaging studies PPI fu labs The patient was seen and examined at bedside and all new and available data was reviewed in the patients chart. I agree with the above findings, impression and plan. (Patient seen earlier today. Signature stamp does not reflect patient encounter time.). - Estefany Benitez MD Subjective Gastrointestinal/Abdominal: Reports: abdomen distended Objective Last 24 Hour Vital Signs Date Time Temp Pulse Resp B/P (MAP) Pulse Ox O2 Delivery O2 Flow Rate FiO2 02/14/17 12:00 97.5 87 16 167/98 96 Room Air 02/14/17 11:04 85 02/14/17 09:11 192/82 02/14/17 08:00 97.5 74 20 192/82 96 Room Air 02/14/17 08:00 88 02/14/17 06:46 98.0 02/14/17 04:02 207/108 02/14/17 04:00 98.0 68 20 188/98 96 Room Air 02/14/17 04:00 83 02/14/17 00:00 97 02/14/17 00:00 98.1 82 20 170/99 96 Room Air 02/13/17 23:41 80 170/99 02/13/17 20:08 193/103 02/13/17 20:00 98.4 81 20 192/92 96 Room Air 02/13/17 20:00 88 02/13/17 18:38 92 193/103 02/13/17 18:37 93 197/101 02/13/17 16:46 203/103 02/13/17 16:00 117 02/13/17 16:00 97.2 92 20 193/104 96 Room Air Intake and Output 02/13/17 02/14/17 19:00 07:00 Output Total 50 ml 500 ml Balance -50 ml -500 ml Output Urine Total 250 ml Other 50 ml 250 ml # Voids 6 4 # Bowel Movements 1 Laboratory Tests Test 02/14/17 00:00 02/14/17 03:10 Urine Opiates Screen Negative (NEGATIVE) Urine Barbiturates Screen Negative (NEGATIVE) Phencyclidine (PCP) Screen Negative (NEGATIVE) Urine Amphetamines Screen Negative (NEGATIVE) Urine Benzodiazepines Screen Negative (NEGATIVE) Urine Cocaine Screen Negative (NEGATIVE) Urine Marijuana (THC) Screen Negative (NEGATIVE) White Blood Count 7.5 K/UL (4.8-10.8) Red Blood Count 4.03 M/UL (4.20-5.40) L Hemoglobin 11.5 G/DL (12.0-16.0) L Hematocrit 38.8 % (37.0-47.0) Mean Corpuscular Volume 96 FL (80-99) Mean Corpuscular Hemoglobin 28.5 PG (27.0-31.0) Mean Corpuscular Hemoglobin Concent 29.6 G/DL (32.0-36.0) L Red Cell Distribution Width 18.0 % (11.6-14.8) H Platelet Count 209 K/UL (150-450) Mean Platelet Volume 10.0 FL (6.5-10.1) Neutrophils (%) (Auto) 72.3 % (45.0-75.0) Lymphocytes (%) (Auto) 19.4 % (20.0-45.0) L Monocytes (%) (Auto) 7.8 % (1.0-10.0) Eosinophils (%) (Auto) 0.1 % (0.0-3.0) Basophils (%) (Auto) 0.5 % (0.0-2.0) Sodium Level 142 MMOL/L (136-145) Potassium Level 3.6 MMOL/L (3.5-5.1) Chloride Level 101 MMOL/L (98-107) Carbon Dioxide Level 31 MMOL/L (21-32) Anion Gap 10 mmol/L (5-15) Blood Urea Nitrogen 26 mg/dL (7-18) H Creatinine 1.1 MG/DL (0.55-1.30) Estimat Glomerular Filtration Rate > 60 mL/min (>60) Glucose Level 87 MG/DL (74-106) # Calcium Level 8.6 MG/DL (8.5-10.1) # Amylase Level 71 U/L (25-115) Lipase 108 U/L (73-393) Height (Feet): 5 Height (Inches): 6.00 Weight (Pounds): 180 General Appearance: no apparent distress, alert Cardiovascular: normal rate Respiratory/Chest: normal breath sounds, no respiratory distress Abdominal Exam: non tender, distended Extremities: normal range of motion, non-tender Luz Marina Rodriguez N.P. Feb 14, 2017 13:46 VILMA BENITEZ Feb 18, 2017 08:13
--- NOTE | 2017-02-14 14:46 | General Surgery Progress Note ---
General Surgery-Progress Note Subjective Symptoms: improved, BM Objective Last 24 Hour Vital Signs Date Time Temp Pulse Resp B/P (MAP) Pulse Ox O2 Delivery O2 Flow Rate FiO2 02/14/17 12:00 97.5 87 16 167/98 96 Room Air 02/14/17 11:04 85 02/14/17 09:11 192/82 02/14/17 08:00 97.5 74 20 192/82 96 Room Air 02/14/17 08:00 88 02/14/17 06:46 98.0 02/14/17 04:02 207/108 02/14/17 04:00 98.0 68 20 188/98 96 Room Air 02/14/17 04:00 83 02/14/17 00:00 97 02/14/17 00:00 98.1 82 20 170/99 96 Room Air 02/13/17 23:41 80 170/99 02/13/17 20:08 193/103 02/13/17 20:00 98.4 81 20 192/92 96 Room Air 02/13/17 20:00 88 02/13/17 18:38 92 193/103 02/13/17 18:37 93 197/101 02/13/17 16:46 203/103 02/13/17 16:00 117 02/13/17 16:00 97.2 92 20 193/104 96 Room Air I&O Intake and Output 02/13/17 02/14/17 19:00 07:00 Output Total 50 ml 500 ml Balance -50 ml -500 ml Output Urine Total 250 ml Other 50 ml 250 ml # Voids 6 4 # Bowel Movements 1 Respiratory: clear Abdomen: soft, flat, non-tender, present bowel sounds Extremities: no tenderness Laboratory Tests Test 02/14/17 00:00 02/14/17 03:10 Urine Opiates Screen Negative (NEGATIVE) Urine Barbiturates Screen Negative (NEGATIVE) Phencyclidine (PCP) Screen Negative (NEGATIVE) Urine Amphetamines Screen Negative (NEGATIVE) Urine Benzodiazepines Screen Negative (NEGATIVE) Urine Cocaine Screen Negative (NEGATIVE) Urine Marijuana (THC) Screen Negative (NEGATIVE) White Blood Count 7.5 K/UL (4.8-10.8) Red Blood Count 4.03 M/UL (4.20-5.40) L Hemoglobin 11.5 G/DL (12.0-16.0) L Hematocrit 38.8 % (37.0-47.0) Mean Corpuscular Volume 96 FL (80-99) Mean Corpuscular Hemoglobin 28.5 PG (27.0-31.0) Mean Corpuscular Hemoglobin Concent 29.6 G/DL (32.0-36.0) L Red Cell Distribution Width 18.0 % (11.6-14.8) H Platelet Count 209 K/UL (150-450) Mean Platelet Volume 10.0 FL (6.5-10.1) Neutrophils (%) (Auto) 72.3 % (45.0-75.0) Lymphocytes (%) (Auto) 19.4 % (20.0-45.0) L Monocytes (%) (Auto) 7.8 % (1.0-10.0) Eosinophils (%) (Auto) 0.1 % (0.0-3.0) Basophils (%) (Auto) 0.5 % (0.0-2.0) Sodium Level 142 MMOL/L (136-145) Potassium Level 3.6 MMOL/L (3.5-5.1) Chloride Level 101 MMOL/L (98-107) Carbon Dioxide Level 31 MMOL/L (21-32) Anion Gap 10 mmol/L (5-15) Blood Urea Nitrogen 26 mg/dL (7-18) H Creatinine 1.1 MG/DL (0.55-1.30) Estimat Glomerular Filtration Rate > 60 mL/min (>60) Glucose Level 87 MG/DL (74-106) # Calcium Level 8.6 MG/DL (8.5-10.1) # Amylase Level 71 U/L (25-115) Lipase 108 U/L (73-393) Imaging small bowel follow thru no obstruction Assessment Post-op Diagnosis SBO resolved Plan Additional Comments remove NG tube clear liquid diet BROOKE Contreras Feb 14, 2017 14:46
[2017-02-14 16:00] VITALS: BP 155/85
--- NOTE | 2017-02-14 18:01 | Diagnostic Imaging Report ---
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 The bowel gas pattern is nonspecific. One minute post ingestion of contrast view demonstrates nondistended stomach and proximal small bowel. There is prompt passage of contrast into some jejunal loops by one minute and at 15 minute postcontrast administration views there is opacification of normal caliber jejunal and ileal loops up to the distal ileum. At 30 minutes postcontrast ingestion there is opacification of the colon, which appears normal in caliber Impression: No evidence of small bowel obstruction.
--- NOTE | 2017-02-14 18:51 | Infectious Diseases Prog Note ---
Assessment/Plan Assessment/Plan ASSESSMENT: Leukocytosis, SP Afebrile Small bowel obstruction, SP resolved ascites which appeared on CT scan. Acute renal insufficiency UCx : GNR no symptoms Hypertension CAD Status post stents, cardiac angiogram Hysterectomy in 1991 Hiatal hernia surgery in 2001 PLAN: DC IV Zosyn. d# 2 Monitor CBC. Monitor BMP. Monitor urine culture. Monitor GI workups. w GI and surgical are following Diet startled Subjective Constitutional: Denies: no symptoms, fever, chills, fatigue, anorexia, drenching sweats, other Allergies: Coded Allergies: CODEINE (Unverified Allergy, Severe, Hives, 11/13/13) Objective Vital Signs Last 24 Hour Vital Signs Date Time Temp Pulse Resp B/P (MAP) Pulse Ox O2 Delivery O2 Flow Rate FiO2 02/14/17 16:00 97.3 77 20 155/85 95 Room Air 02/14/17 16:00 81 02/14/17 12:00 97.5 87 16 167/98 96 Room Air 02/14/17 11:04 85 02/14/17 09:11 192/82 02/14/17 08:00 97.5 74 20 192/82 96 Room Air 02/14/17 08:00 88 02/14/17 06:46 98.0 02/14/17 04:02 207/108 02/14/17 04:00 98.0 68 20 188/98 96 Room Air 02/14/17 04:00 83 02/14/17 00:00 97 02/14/17 00:00 98.1 82 20 170/99 96 Room Air 02/13/17 23:41 80 170/99 02/13/17 20:08 193/103 02/13/17 20:00 98.4 81 20 192/92 96 Room Air 02/13/17 20:00 88 Height (Feet): 5 Height (Inches): 6.00 Weight (Pounds): 180 HEENT: anicteric Respiratory/Chest: no respiratory distress Cardiovascular: regularly irregular Abdomen: non distended Microbiology Date/Time Source Procedure Growth Status 02/13/17 05:30 Urine,Clean Catch Urine Culture - Preliminary Gram Negative Bacillus 1 Resulted Laboratory Tests Test 02/14/17 00:00 02/14/17 03:10 Urine Opiates Screen Negative (NEGATIVE) Urine Barbiturates Screen Negative (NEGATIVE) Phencyclidine (PCP) Screen Negative (NEGATIVE) Urine Amphetamines Screen Negative (NEGATIVE) Urine Benzodiazepines Screen Negative (NEGATIVE) Urine Cocaine Screen Negative (NEGATIVE) Urine Marijuana (THC) Screen Negative (NEGATIVE) White Blood Count 7.5 K/UL (4.8-10.8) Red Blood Count 4.03 M/UL (4.20-5.40) L Hemoglobin 11.5 G/DL (12.0-16.0) L Hematocrit 38.8 % (37.0-47.0) Mean Corpuscular Volume 96 FL (80-99) Mean Corpuscular Hemoglobin 28.5 PG (27.0-31.0) Mean Corpuscular Hemoglobin Concent 29.6 G/DL (32.0-36.0) L Red Cell Distribution Width 18.0 % (11.6-14.8) H Platelet Count 209 K/UL (150-450) Mean Platelet Volume 10.0 FL (6.5-10.1) Neutrophils (%) (Auto) 72.3 % (45.0-75.0) Lymphocytes (%) (Auto) 19.4 % (20.0-45.0) L Monocytes (%) (Auto) 7.8 % (1.0-10.0) Eosinophils (%) (Auto) 0.1 % (0.0-3.0) Basophils (%) (Auto) 0.5 % (0.0-2.0) Sodium Level 142 MMOL/L (136-145) Potassium Level 3.6 MMOL/L (3.5-5.1) Chloride Level 101 MMOL/L (98-107) Carbon Dioxide Level 31 MMOL/L (21-32) Anion Gap 10 mmol/L (5-15) Blood Urea Nitrogen 26 mg/dL (7-18) H Creatinine 1.1 MG/DL (0.55-1.30) Estimat Glomerular Filtration Rate > 60 mL/min (>60) Glucose Level 87 MG/DL (74-106) # Calcium Level 8.6 MG/DL (8.5-10.1) # Amylase Level 71 U/L (25-115) Lipase 108 U/L (73-393) Current Medications Medications (Trade) Dose Ordered Sig/Talita Route PRN Reason Start Time Stop Time Status Last Admin Dose Admin Enalaprilat (Vasotec) 1.25 mg Q6H PRN IV for SBP > 180 02/14/17 19:00 03/15/17 18:59 Furosemide (Lasix) 40 mg Q12HR IV 02/14/17 21:00 03/15/17 08:59 Metoprolol Tartrate (Lopressor) 5 mg Q4H PRN IVP FOR SBP > 160 02/14/17 19:00 03/15/17 18:59 Morphine Sulfate (Morphine Sulfate) 2 mg Q4H PRN IVP Pain Scale 4-10 02/14/17 19:00 02/21/17 18:59 02/14/17 18:41 Ondansetron HCl (Zofran) 4 mg Q4H PRN IVP Nausea & Vomiting 02/14/17 19:00 03/15/17 18:59 Piperacillin Sod/ Tazobactam Sod 3.375 gm/Dextrose 55 ml @ 13.75 mls/ hr EVERY 8 HOURS IVPB 02/14/17 22:00 02/21/17 21:59 ANA RODRIGUEZ M.D. Feb 14, 2017 18:51
[2017-02-14] MEDS ORDERED: Morphine Sulfate 2mg/ml Inj IVP PRN (19:00)
[2017-02-14 20:00] VITALS: BP 148/85
[2017-02-14] MEDS ORDERED: Enalaprilat 2.5mg/2ml Inj IV SCH (22:00)
[2017-02-14] MEDS ORDERED: Piperacillin/Tazobactam 3.375 GM in D5W 55 ML IVPB SCH (22:00)
[2017-02-15] VITALS: BP 198/106
--- NOTE | 2017-02-15 00:25 | Cardiology Report ---
APPROVED REPORT EKG Measurement Heart [id number] [place] 138P66 [id number] Sinus tachycardia Biatrial enlargement ST elevation, consider inferior injury or acute infarct Consider right ventricular involvement in acute inferior infarct Abnormal ECG
--- NOTE | 2017-02-15 00:25 | Cardiology Report ---
APPROVED REPORT EKG Measurement Heart [id number] [place] 124P56 [id number] Sinus tachycardia with premature supraventricular complexes Possible Left atrial enlargement Septal infarct, age undetermined Prolonged QT Abnormal ECG
--- NOTE | 2017-02-15 00:25 | Cardiology Report ---
APPROVED REPORT EKG Measurement Heart [id number] [place] 136P53 [id number] Sinus tachycardia Possible Left atrial enlargement Possible Anterolateral infarct, age undetermined Abnormal ECG
--- NOTE | 2017-02-15 00:25 | Cardiology Report ---
APPROVED REPORT EKG Measurement Heart [id number] [place] 140P62 [id number] Normal sinus rhythm Possible Left atrial enlargement Septal infarct, age undetermined Prolonged QT Abnormal ECG
--- NOTE | 2017-02-15 00:25 | Cardiology Report ---
APPROVED REPORT EKG Measurement Heart [id number] [place] 136P67 [id number] Sinus tachycardia Biatrial enlargement Septal infarct, age undetermined Inferior injury pattern Consider right ventricular involvement in acute inferior infarct Abnormal ECG
[2017-02-15] MEDS: Metoprolol 5mg/5ml Inj IVP PRN ×2 (00:27→13:54)
[2017-02-15 04:00] VITALS: BP 148/99
[2017-02-15 07:41] LABS: MEAN CORPUSCULAR HEMOGLOBIN 28.3 PG (27.0-31.0); MEAN CORPUSCULAR HGB CONC 29.3 G/DL (32.0-36.0); MEAN CORPUSCULAR VOLUME 97 FL (80-99); MEAN PLATELET VOLUME 9.4 FL (6.5-10.1); PLATELET COUNT 205 K/UL (150-450); RED CELL DISTRIBUTION WIDTH 17.8 % (11.6-14.8); WHITE BLOOD COUNT 6.8 K/UL (4.8-10.8)
[2017-02-15 08:00] VITALS: BP 184/81
[2017-02-15 08:21] LABS: ANION GAP 7 mmol/L (5-15); CARBON DIOXIDE 36 MMOL/L (21-32); CHLORIDE 97 MMOL/L (98-107); CREATININE 1.2 MG/DL (0.55-1.30); GLOMERULAR FILTRATION RATE 54.7 mL/min (>60); POTASSIUM 3.5 MMOL/L (3.5-5.1); SODIUM 140 MMOL/L (136-145)
[2017-02-15] MEDS: Enalaprilat 2.5mg/2ml Inj IV PRN (09:05)
--- NOTE | 2017-02-15 09:36 | General Progress Note ---
Assessment/Plan Problem List: (1) Anemia ICD Codes: D64.9 - Anemia, unspecified SNOMED: 363248423 (2) SBO (small bowel obstruction) ICD Codes: K56.609 - Unspecified intestinal obstruction, unspecified as to partial versus complete obstruction SNOMED: 289894495 (3) Abdominal pain ICD Codes: R10.9 - Unspecified abdominal pain SNOMED: 81064459 Qualifiers: Qualified Codes: R10.84 - Generalized abdominal pain Assessment/Plan negative SBFT advance diet fu with surgery recs Subjective ROS Limited/Unobtainable: Yes Allergies: Coded Allergies: CODEINE (Unverified Allergy, Severe, Hives, 11/13/13) Subjective diarrhea Objective Last 24 Hour Vital Signs Date Time Temp Pulse Resp B/P (MAP) Pulse Ox O2 Delivery O2 Flow Rate FiO2 02/15/17 09:05 184/81 02/15/17 04:00 97.0 59 20 148/99 95 Room Air 02/15/17 03:54 61 02/15/17 00:27 94 198/106 02/15/17 00:00 97.7 77 23 198/106 92 Room Air 02/14/17 23:40 71 02/14/17 20:18 80 02/14/17 20:00 98.2 77 21 148/85 93 Room Air 02/14/17 16:00 97.3 77 20 155/85 95 Room Air 02/14/17 16:00 81 02/14/17 12:00 97.5 87 16 167/98 96 Room Air 02/14/17 11:04 85 Intake and Output 02/14/17 02/15/17 19:00 07:00 Intake Total 253.75 ml Balance 253.75 ml Intake Oral 240 ml IV Total 13.75 ml # Voids 3 # Bowel Movements 1 1 Laboratory Tests 02/15/17 06:40: White Blood Count 6.8, Red Blood Count 4.10L, Hemoglobin 11.6L, Hematocrit 39.6 , Mean Corpuscular Volume 97, Mean Corpuscular Hemoglobin 28.3, Mean Corpuscular Hemoglobin Concent 29.3L, Red Cell Distribution Width 17.8H, Platelet Count 205, Mean Platelet Volume 9.4, Neutrophils (%) (Auto) 52.1, Lymphocytes (%) (Auto) 38.8, Monocytes (%) (Auto) 7.7, Eosinophils (%) (Auto) 0.8, Basophils (%) (Auto) 0.6, Sodium Level 140, Potassium Level 3.5, Chloride Level 97L, Carbon Dioxide Level 36H, Anion Gap 7, Blood Urea Nitrogen 27H, Creatinine 1.2, Estimat Glomerular Filtration Rate 54.7, Glucose Level 92, Calcium Level 9.0 Height (Feet): 5 Height (Inches): 6.00 Weight (Pounds): 180 General Appearance: alert EENT: normal ENT inspection Neck: supple Cardiovascular: normal rate Respiratory/Chest: decreased breath sounds Abdomen: normal bowel sounds, non tender, soft Extremities: non-tender VILMA LUIS Feb 15, 2017 09:36
--- NOTE | 2017-02-15 10:48 | Infectious Diseases Prog Note ---
Assessment/Plan Assessment/Plan ASSESSMENT: Leukocytosis, SP Afebrile Small bowel obstruction, SP resolved ascites which appeared on CT scan. Acute renal insufficiency UCx : EColi, no symptoms no need to Rx Hypertension CAD Status post stents, cardiac angiogram Hysterectomy in 1991 Hiatal hernia surgery in 2001 PLAN: monitor pt off of aB Rz 02/14 SP IV Zosyn. d# 2 Monitor CBC. Monitor BMP. Monitor GI workups. GI and surgical are following Diet startled Subjective Allergies: Coded Allergies: CODEINE (Unverified Allergy, Severe, Hives, 11/13/13) Subjective Afebrile Objective Vital Signs Last 24 Hour Vital Signs Date Time Temp Pulse Resp B/P (MAP) Pulse Ox O2 Delivery O2 Flow Rate FiO2 02/15/17 09:05 184/81 02/15/17 04:00 97.0 59 20 148/99 95 Room Air 02/15/17 03:54 61 02/15/17 00:27 94 198/106 02/15/17 00:00 97.7 77 23 198/106 92 Room Air 02/14/17 23:40 71 02/14/17 20:18 80 02/14/17 20:00 98.2 77 21 148/85 93 Room Air 02/14/17 16:00 97.3 77 20 155/85 95 Room Air 02/14/17 16:00 81 02/14/17 12:00 97.5 87 16 167/98 96 Room Air 02/14/17 11:04 85 Height (Feet): 5 Height (Inches): 6.00 Weight (Pounds): 180 HEENT: anicteric Respiratory/Chest: no respiratory distress Cardiovascular: regular rhythm Abdomen: no organomegaly Microbiology Date/Time Source Procedure Growth Status 02/13/17 05:30 Urine,Clean Catch Urine Culture - Final Escherichia Coli Complete Laboratory Tests Test 02/15/17 06:40 White Blood Count 6.8 K/UL (4.8-10.8) Red Blood Count 4.10 M/UL (4.20-5.40) L Hemoglobin 11.6 G/DL (12.0-16.0) L Hematocrit 39.6 % (37.0-47.0) Mean Corpuscular Volume 97 FL (80-99) Mean Corpuscular Hemoglobin 28.3 PG (27.0-31.0) Mean Corpuscular Hemoglobin Concent 29.3 G/DL (32.0-36.0) L Red Cell Distribution Width 17.8 % (11.6-14.8) H Platelet Count 205 K/UL (150-450) Mean Platelet Volume 9.4 FL (6.5-10.1) Neutrophils (%) (Auto) 52.1 % (45.0-75.0) Lymphocytes (%) (Auto) 38.8 % (20.0-45.0) Monocytes (%) (Auto) 7.7 % (1.0-10.0) Eosinophils (%) (Auto) 0.8 % (0.0-3.0) Basophils (%) (Auto) 0.6 % (0.0-2.0) Sodium Level 140 MMOL/L (136-145) Potassium Level 3.5 MMOL/L (3.5-5.1) Chloride Level 97 MMOL/L (98-107) L Carbon Dioxide Level 36 MMOL/L (21-32) H Anion Gap 7 mmol/L (5-15) Blood Urea Nitrogen 27 mg/dL (7-18) H Creatinine 1.2 MG/DL (0.55-1.30) Estimat Glomerular Filtration Rate 54.7 mL/min (>60) Glucose Level 92 MG/DL (74-106) Calcium Level 9.0 MG/DL (8.5-10.1) Current Medications Medications (Trade) Dose Ordered Sig/Talita Route PRN Reason Start Time Stop Time Status Last Admin Dose Admin Enalaprilat (Vasotec) 1.25 mg Q6H PRN IV for SBP > 180 02/14/17 19:00 03/15/17 18:59 02/15/17 09:05 Furosemide (Lasix) 40 mg Q12HR IV 02/14/17 21:00 03/15/17 08:59 02/15/17 09:05 Metoprolol Tartrate (Lopressor) 5 mg Q4H PRN IVP FOR SBP > 160 02/14/17 19:00 03/15/17 18:59 02/15/17 00:27 Morphine Sulfate (Morphine Sulfate) 2 mg Q4H PRN IVP Pain Scale 4-10 02/14/17 19:00 02/21/17 18:59 02/14/17 18:41 Ondansetron HCl (Zofran) 4 mg Q4H PRN IVP Nausea & Vomiting 02/14/17 19:00 03/15/17 18:59 02/15/17 09:05 ANA RODRIGUEZ M.D. Feb 15, 2017 10:48
--- NOTE | 2017-02-15 11:10 | General Surgery Progress Note ---
General Surgery-Progress Note Subjective Symptoms: improved, BM Objective Last 24 Hour Vital Signs Date Time Temp Pulse Resp B/P (MAP) Pulse Ox O2 Delivery O2 Flow Rate FiO2 02/15/17 09:05 184/81 02/15/17 04:00 97.0 59 20 148/99 95 Room Air 02/15/17 03:54 61 02/15/17 00:27 94 198/106 02/15/17 00:00 97.7 77 23 198/106 92 Room Air 02/14/17 23:40 71 02/14/17 20:18 80 02/14/17 20:00 98.2 77 21 148/85 93 Room Air 02/14/17 16:00 97.3 77 20 155/85 95 Room Air 02/14/17 16:00 81 02/14/17 12:00 97.5 87 16 167/98 96 Room Air I&O Intake and Output 02/14/17 02/15/17 19:00 07:00 Intake Total 253.75 ml Balance 253.75 ml Intake Oral 240 ml IV Total 13.75 ml # Voids 3 # Bowel Movements 1 1 Respiratory: clear Abdomen: soft, flat, non-tender, present bowel sounds Extremities: no tenderness Laboratory Tests Test 02/15/17 06:40 White Blood Count 6.8 K/UL (4.8-10.8) Red Blood Count 4.10 M/UL (4.20-5.40) L Hemoglobin 11.6 G/DL (12.0-16.0) L Hematocrit 39.6 % (37.0-47.0) Mean Corpuscular Volume 97 FL (80-99) Mean Corpuscular Hemoglobin 28.3 PG (27.0-31.0) Mean Corpuscular Hemoglobin Concent 29.3 G/DL (32.0-36.0) L Red Cell Distribution Width 17.8 % (11.6-14.8) H Platelet Count 205 K/UL (150-450) Mean Platelet Volume 9.4 FL (6.5-10.1) Neutrophils (%) (Auto) 52.1 % (45.0-75.0) Lymphocytes (%) (Auto) 38.8 % (20.0-45.0) Monocytes (%) (Auto) 7.7 % (1.0-10.0) Eosinophils (%) (Auto) 0.8 % (0.0-3.0) Basophils (%) (Auto) 0.6 % (0.0-2.0) Sodium Level 140 MMOL/L (136-145) Potassium Level 3.5 MMOL/L (3.5-5.1) Chloride Level 97 MMOL/L (98-107) L Carbon Dioxide Level 36 MMOL/L (21-32) H Anion Gap 7 mmol/L (5-15) Blood Urea Nitrogen 27 mg/dL (7-18) H Creatinine 1.2 MG/DL (0.55-1.30) Estimat Glomerular Filtration Rate 54.7 mL/min (>60) Glucose Level 92 MG/DL (74-106) Calcium Level 9.0 MG/DL (8.5-10.1) Assessment Post-op Diagnosis SBO resolved Plan Additional Comments can be discharged home after regular diet BROOKE VEGA Feb 15, 2017 11:10
[2017-02-15 12:00] VITALS: BP 179/79
[2017-02-15 16:00] VITALS: BP 153/73
[2017-02-15] MEDS ORDERED: NS 275ml ONE (17:19)
[2017-02-15] MEDS ORDERED: Tubing IV Secondary IV ONE (17:19)
[2017-02-15 20:00] VITALS: BP 157/92
[2017-02-15 21:57] LABS: INR 0.9 (0.9-1.1); PROTHROMBIN TIME 9.9 SEC (9.30-11.50)
[2017-02-15 22:16] LABS: RETICULOCYTE COUNT 0.8 % (0.0-2.0)
[2017-02-15 22:25] LABS: FERRITIN 211 NG/ML (8-388); LACTATE DEHYDROGENASE 154 U/L (81-234)
[2017-02-15 22:33] LABS: PATH BLOOD SMEAR/OMC SENT TO PATHOLOGIST
[2017-02-15 22:44] LABS: FOLIC ACID 3.4 NG/ML (8.6-58.9); IRON 52 ug/dL (50-175); TOTAL IRON BINDING CAPACITY 283 ug/dL (250-450)
[2017-02-16] VITALS: BP 158/82
[2017-02-16] MEDS: Enalaprilat 2.5mg/2ml Inj IV PRN (02:48)
[2017-02-16 04:00] VITALS: BP 144/95
[2017-02-16 08:00] VITALS: BP 164/81
[2017-02-16] MEDS: Metoprolol 5mg/5ml Inj IVP PRN (08:55)
--- NOTE | 2017-02-16 10:17 | General Progress Note ---
Assessment/Plan Problem List: (1) Anemia ICD Codes: D64.9 - Anemia, unspecified SNOMED: 650351185 (2) SBO (small bowel obstruction) ICD Codes: K56.609 - Unspecified intestinal obstruction, unspecified as to partial versus complete obstruction SNOMED: 348953277 (3) Abdominal pain ICD Codes: R10.9 - Unspecified abdominal pain SNOMED: 25545126 Qualifiers: Qualified Codes: R10.84 - Generalized abdominal pain Assessment/Plan negative SBFT tolerated diet fu with surgery recs Subjective ROS Limited/Unobtainable: Yes Allergies: Coded Allergies: CODEINE (Unverified Allergy, Severe, Hives, 11/13/13) Subjective feeling better wants to go home Objective Last 24 Hour Vital Signs Date Time Temp Pulse Resp B/P (MAP) Pulse Ox O2 Delivery O2 Flow Rate FiO2 02/16/17 08:55 84 164/81 02/16/17 04:00 97.7 75 21 144/95 95 02/16/17 04:00 61 02/16/17 02:48 181/100 02/16/17 00:00 98.2 72 21 158/82 95 02/15/17 20:00 98.6 72 21 157/92 93 02/15/17 20:00 78 02/15/17 16:00 98.1 83 20 153/73 93 Room Air 02/15/17 16:00 72 02/15/17 13:54 60 179/79 02/15/17 12:00 97.9 60 21 179/79 95 Room Air 02/15/17 12:00 60 Intake and Output 02/15/17 02/16/17 19:00 07:00 Intake Total 708 ml Balance 708 ml Intake Oral 708 ml # Voids 3 4 Laboratory Tests 02/15/17 21:05: Reticulocyte Count 0.8, Prothrombin Time 9.9, Prothromb Time International Ratio 0.9, Fibrinogen 532H, Iron Level 52, Total Iron Binding Capacity 283, Percent Iron Saturation 18, Unsaturated Iron Binding 231, Ferritin 211, Total Bilirubin 0.5, Lactate Dehydrogenase 154, Vitamin B12 Level 477, Folate 3.4L Height (Feet): 5 Height (Inches): 6.00 Weight (Pounds): 180 General Appearance: alert EENT: normal ENT inspection Neck: supple Cardiovascular: normal rate Respiratory/Chest: chest wall non-tender, lungs clear Abdomen: normal bowel sounds, non tender, soft Extremities: non-tender VILMA LUIS Feb 16, 2017 10:17
[2017-02-16 12:00] VITALS: BP 158/88
--- NOTE | 2017-02-17 01:30 | Consultation ---
DATE OF CONSULTATION: 02/15/2017 NOTE: POOR AUDIO HEMATOLOGY/ONCOLOGY CONSULTATION CONSULTING PHYSICIAN: Jacob Calderon M.D. REFERRING PHYSICIAN: Yinka Awad M.D. IDENTIFYING DATA: The patient is a pleasant 66-year-old female with a past medical history, which is significant for hiatal hernia, hysterectomy as well, at this time presents with possible distention, pain in the abdomen, lasting for the past one to two weeks, associated with nausea and vomiting. No diarrhea noted. She has been seen by the ID Service as well as Surgical service and Dr. Benitez. She had a negative small bowel followthrough and at this time advancing diet as needed. Surgical Service evaluated the patient, Dr. Blas, and the patient's symptoms improved. Hematology Service was consulted for medical followup as well as anemia workup. PAST MEDICAL HISTORY: Hiatal hernia history, , hypertension, emergency pancreatitis, and alcoholism. MEDICATIONS: Reviewed. ALLERGIES: Codeine. SOCIAL HISTORY: History of smoking alcohol abuse. , with 2 children. FAMILY HISTORY: Noncontributory. REVIEW OF SYSTEMS: CONSTITUTIONAL: No fevers, chills, or night sweats. SKIN: No rashes, bumps, or itching. HEENT: No headache, hearing or vision changes. BREASTS: No lumps, pain, or discharge. PULMONARY: No cough, sputum, or shortness of breath. GASTROINTESTINAL: No nausea, vomiting, or diarrhea. GENITOURINARY: No dysuria, frequency, or urgency. MUSCULOSKELETAL: No joint swelling, muscle pain, or trauma. PHYSICAL EXAMINATION: VITAL SIGNS: Reviewed. GENERAL: No acute distress. PULMONARY: Decreased breath sounds. CARDIOVASCULAR: Regular rate. No S3 or S4. ABDOMEN: Soft, nontender, and nondistended. EXTREMITIES: No cyanosis, swelling, or edema. LABORATORY DATA: BUN of 20 and creatinine 1.4. Hemoglobin 13, platelet count of 222. Again, BUN of 20, creatinine 1.2. PTT of 25. 9.6. ASSESSMENT AND RECOMMENDATIONS: 1. Anemia secondary to chronic disease. Continue to closely monitor. 2. Small bowel obstruction, currently resolved on exam. 3. Leukocytosis, resolved. 4. Acute kidney injury. Continue to closely monitor. 5. Hypertension. 6. Coronary artery disease. 7. Hysterectomy in 1991. 8. Hiatal hernia surgery in 2001. 9. Continue antibiotics per ID Service. I appreciate the consultation. Jacob Calderon M.D. DR: Nicolasa JOB#: [id number] CC:
[2017-02-18 11:25] LABS: BAND NEUTROPHILS % (MANUAL) 0 % (0-8); BASOPHILS % (MANUAL) 0 % (0-2); EOSINOPHILS % (MANUAL) 1 % (0-3); LYMPHOCYTES % (MANUAL) 36 % (20-45); NEUTROPHILS % (MANUAL) 54 % (45-75); PLATELET ESTIMATE ADEQUATE; PLATELET MORPHOLOGY NORMAL
[2017-02-18 11:27] LABS: OTHERS PATHOLOGIST COMMENT
--- NOTE | 2017-02-20 13:01 | Discharge Summary ---
Discharge Summary Hospital Course Date of Admission Feb 13, 2017 at 04:07 Date of Discharge Feb 16, 2017 at 14:00 Admitting Diagnosis Abd pain HPI Latisha Bo is a 66 year old female who was admitted on Feb 13, 2017 at 04: 07 for Abdominal Pain Hospital Course dc summary#[id number] Discharge Medications Continued Medications: Amlodipine Besylate* (Amlodipine Besylate*) 10 Mg Tablet 10 MG ORAL DAILY, TAB Aspirin* (Aspirin*) 81 Mg Tab.chew 81 MG ORAL DAILY, TAB Atorvastatin Calcium* (Lipitor*) 20 Mg Tablet 20 MG ORAL BEDTIME, TAB Clonidine HCl (Clonidine HCl) 0.1 Mg Tab 0.1 MG GT BID, TAB Hydrochlorothiazide* (Hydrochlorothiazide*) 25 Mg Tablet 25 MG ORAL DAILY, TAB Hydrocodone Bit/Acetaminophen 5-325* (Fowler 5-325 Tablet*) 1 Each Tablet 1-2 TAB ORAL Q4H PRN for For Pain, TAB Losartan Potassium* (Losartan Potassium*) 50 Mg Tablet 50 MG ORAL DAILY, TAB Metoprolol Succinate* (Toprol Xl*) 25 Mg Tab.er.24h 25 MG ORAL DAILY, #30 TAB Multivitamin (Multivitamins) 1 Each Tablet 1 EACH PO DAILY PRN for Abdominal cramps, TAB Ondansetron (Zofran) 4 Mg Tab 4 MG ORAL Q6H PRN for Nausea & Vomiting, TAB Discontinued Medications: Metoprolol Tartrate* (Metoprolol Tartrate*) 25 Mg Tablet 25 MG ORAL EVERY 12 HOURS, TAB Discharge Condition Upon Discharge: stable Discharge Disposition Patient was discharged to Home (01) Discharge Diagnoses: Discharge Instructions Discharge Instructions Special Instructions I have been assigned to complete a D/C Summary on this account. I was not involved in the patient management Aylin Vincent NP (Vanchtein) Feb 20, 2017 13:01
--- NOTE | 2017-02-20 22:45 | Discharge Summary 2 SIG ---
DATE OF ADMISSION: 02/13/2017 DATE OF DISCHARGE: 02/16/2017 REASON FOR ADMISSION: 66-year-old female with history of hypertension and small-bowel obstruction, presented to emergency department with complaint of abdominal pain and abdominal distention for 5 hours. The patient reported nausea and diarrhea. No chest pain. No shortness of breath. The patient had a history of small-bowel obstruction in 2017, resolved with conservative management. Upon evaluation in the emergency room, the patient was found to be tachycardic -120, blood pressure severely elevated- 218/148. The patient noted to have leukocytosis -13.5 and evidence of acute kidney injury with BUN -26 and creatinine1.4. Lactic acid- 3.7. Lipase -819. Urine toxicology screen was negative. Urinalysis revealed evidence of many bacteria, but no pyuria and +[address] of the abdomen and pelvis revealed small bowel obstruction, no free air. Subsequently the patient had undergone abdominal x-ray which revealed few prominent gas-filled small-bowel loops. The patient was started on empiric antibiotic, NG tube was inserted and maintenance fluids were started. Hydralazine was given for elevated blood pressure. EKG in the ED done x2 and was abnormal , but troponin was within normal limits ( which would be expected to be higher if actual ischemia was more than for 5 hours.) The patient received aspirin and heparin bolus in the emergency department for suspected myocardial infarction, but no heparin drip started after troponin came back negative. ED doctor consulted with [facility] doctors who were not impressed with the EKG and declined transfer of the patient. The patient admitted for further management with diagnosis of small-bowel obstruction, abdominal pain, hypertensive urgency, abnormal EKG, lactic acidosis. HOSPITAL COURSE: The patient was admitted. Surgery and GI consult were requested along with ID consult. Surgeon had seen and evaluated the patient and stated that initially the patient should be treated conservatively with IV fluids and bowel decompression. NG tube was connected to continuous suction and output was closely monitored. The patient was followed up with KUB and small bowel follow-through. GI and surgeon were closely followed. The patient was kept n.p.o. The patient was started on PPI. Pain management was provided. Bowel regimen was instituted. The patient had subsequently undergone small bowel follow-through which was negative for small bowel obstruction. The patient was started on clear liquid diet. Diet was slowly advanced as tolerated, and patient was able to tolerate diet. IV fluids were discontinued as diet advanced. Antiemetic provided as needed. No nausea. No vomiting. No diarrhea. Urine culture revealed E. coli with colony count more than 100,000, however, the patient was asymptomatic. The patient received antibiotics, for few days, and per ID recommendation, antibiotics were stopped. No further treatment was necessary since the patient was asymptomatic. Acute kidney injury present on admission resolved, likely was secondary to dehydration due to diarrhea. DVT and GI prophylaxis provided. Oven Attendant had seen and evaluated the patient for abnormal EKG. Troponin negative. No further evaluation at this time, as per luncheonette manager. Blood pressure stabilized with current antihypertensive regimen. Patient was advised to follow up as an outpatient with luncheonette manager. Motor Vehicle Representative had seen the patient for mild anemia. Anemia workup was consistent with anemia of chronic disease. Hemoglobin and hematocrit remained at the baseline, Closely monitor counts as outpatient. The patient was stable for discharge. FINAL DIAGNOSES: 1. Small bowel obstruction, resolved. 2. Abdominal pain secondary to small bowel obstruction. 3. Hypertensive urgency, resolved. 4. Lactic acidosis. 5. Abnormal electrocardiogram. 6. Anemia of chronic disease. 7. Acute kidney injury, likely due to dehydration, resolved. DISCHARGE MEDICATIONS: See medication reconciliation list. DISCHARGE INSTRUCTIONS: The patient was discharged home. Follow up with the medical doctor in one week. Yinka Awad M.D. I have been assigned to dictate discharge summary on this account and I was not involved in the patient's management. Aylin Vincent (Vanchtein) NSandra CHACKO: Shira JOB#: [id number] CC: NELY
== END 2017-02-16 14:00 | disposition home or self-care (01) | DRG 247 ==
LOC: EDBD 02:26 → EMR 02:39 → 2W 04:07 → EDBEDREQ 05:50 → 2W 02-14 06:00 → 2E 02-14 18:18
DX: K56.609 Unspecified intestinal obstruction, unspecified as to partial versus complete obstruction (principal); E87.2 Acidosis; I10 Essential (primary) hypertension; Z87.891 Personal history of nicotine dependence; I16.1 Hypertensive emergency; I25.10 Atherosclerotic heart disease of native coronary artery without angina pectoris; Z95.5 Presence of coronary angioplasty implant and graft; Z90.710 Acquired absence of both cervix and uterus; D63.8 Anemia in other chronic diseases classified elsewhere; F10.20 Alcohol dependence, uncomplicated; Z88.6 Allergy status to analgesic agent
CPT/HCPCS: 36415; 74000; 74176; 74250; 80048; 80053; 80307; 81003; 82150; 82247; 82607; 82728; 82746; 83540; 83550; 83605; 83615; 83690; 84484; 85007; 85025; 85044; 85060; 85384; 85610; 85730; 87086; 87181; 93005; J2405

== ENCOUNTER 2019-03-10 02:28 | Inpatient (IN) | payer OTHER ==
[2019-03-10] VITALS (11 sets, daily range): BP systolic 150–240; BP diastolic 79–151
[~2019-03-10] VITALS: Ht 167.6 cm; Wt 77.1 kg
--- NOTE | 2019-03-10 02:45 | NUR ---
ED Nurse Note: rt at bedside with breathing tx.
--- NOTE | 2019-03-10 02:45 | NUR ---
ED Nurse Note: PT BIBA FROM HOME C/O 10/10 CHEST PAIN WITH COUGH X3 DAYS. BP IN TRIAGE IS 215/100. PT IN MONITOR. ERMD AT BEDSIDE. WILL CONTINUE TO MONITOR PATIENT.
[2019-03-10 03:00] LABS: BASOPHILS % (AUTO) 0.6 % (0.0-2.0); EOSINOPHILS % (AUTO) 1.1 % (0.0-3.0); HEMATOCRIT 40.4 % (37.0-47.0); HEMOGLOBIN 12.3 G/DL (12.0-16.0); LYMPHOCYTES % (AUTO) 42.6 % (20.0-45.0); MEAN CORPUSCULAR VOLUME 102 FL (80-99); MONOCYTES % (AUTO) 11.9 % (1.0-10.0); NEUTROPHILS % (AUTO) 43.8 % (45.0-75.0); PLATELET COUNT 211 K/UL (150-450); RED BLOOD COUNT 3.96 M/UL (4.20-5.40); RED CELL DISTRIBUTION WIDTH 20.6 % (11.6-14.8); WHITE BLOOD COUNT 6.8 K/UL (4.8-10.8)
[2019-03-10] MEDS: Levalbuterol Inh UD 1.25mg/0.5ml HHN SCH ×3 (03:02→03:30)
[2019-03-10] MEDS: Ipratropium 0.02% Inh Soln 2.5ml UD HHN SCH ×2 (03:02→03:19)
--- NOTE | 2019-03-10 03:04 | NUR ---
ED Nurse Note: IV ESTABLISHED ON RIGHT AC WITH 20G. BLOOD DRAWN AND SENT TO LAB. LINE PATENT AND INTACT.
--- NOTE | 2019-03-10 03:04 | NUR ---
ED Nurse Note: IV ESTABLISHED ON LEFT AC WITH 20G. BLOOD DRAWN AND SENT TO LAB. LINE PATENT AND INTACT.
--- NOTE | 2019-03-10 03:04 | NUR ---
Note leo in EDM - 03/10/19 at 0324 by [email or web address] ED Nurse Note: IV ESTABLISHED ON LEFT AC WITH 20G. BLOOD DRAWN AND SENT TO LAB. LINE PATENT AND INTACT.
[2019-03-10 03:15] LABS: ANION GAP 10 mmol/L (5-15); BLOOD UREA NITROGEN 26 mg/dL (7-18); CALCIUM 9.6 MG/DL (8.5-10.1); CARBON DIOXIDE 28 MMOL/L (21-32); CHLORIDE 104 MMOL/L (98-107); SODIUM 142 MMOL/L (136-145)
--- NOTE | 2019-03-10 03:22 | NUR ---
ED Nurse Note: xr at bedside.
[2019-03-10 03:26] LABS: ALANINE AMINOTRANSFERASE 13 U/L (12-78); ALBUMIN 3.5 G/DL (3.4-5.0); ALBUMIN/GLOBULIN RATIO 0.7 (1.0-2.7); ALKALINE PHOSPHATASE 107 U/L (46-116); ASPARTATE AMINO TRANSFERASE 11 U/L (15-37); BILIRUBIN,TOTAL 0.6 MG/DL (0.2-1.0)
--- NOTE | 2019-03-10 03:30 | NUR ---
ED Nurse Note: PT BP AT 240/102. ERMSaul NOTIFIED. WILL CARRY OUT ORDER AND MONITOR PATIENT. Addendum: 03/10/19 at 0407 by [email or web address] ED Nurse Note: PT BP AT 240/102. PT STATES BILAT CHEST PAIN THAT RADIATES TO THE RIGHT UPPER BACK. SHA NOTIFIED. WILL CARRY OUT ORDER AND MONITOR PATIENT.
[2019-03-10] MEDS ORDERED: Metoprolol Tartrate 5mg/5ml Inj IVP ONE (03:45)
[2019-03-10] MEDS ORDERED: Morphine Sulfate 4mg/ml Inj (IV USE ONLY) IVP ONE ×2 (03:45→09:45)
--- NOTE | 2019-03-10 04:00 | NUR ---
ED Nurse Note: GAVE REPORT TO TERMINAL GAUGER BETO.
[2019-03-10 04:23] LABS: APPEARANCE,URINE CLEAR; BILIRUBIN, URINE NEGATIVE (NEGATIVE); COLOR,URINE PALE YELLOW; GLUCOSE, URINE (UA) NEGATIVE (NEGATIVE); KETONES,URINE NEGATIVE (NEGATIVE); LEUKOCYTE ESTERASE ,URINE NEGATIVE (NEGATIVE); NITRITE,URINE NEGATIVE (NEGATIVE); PH,URINE 6 (4.5-8.0); PROTEIN,URINE 2+ (NEGATIVE); UROBILINOGEN,URINE NORMAL MG/DL (0.0-1.0)
[2019-03-10] MEDS ORDERED: Aspirin Baby 81mg ORAL ONE (05:30)
--- NOTE | 2019-03-10 05:56 | Emergency Room Report ---
History of Present Illness General Chief Complaint: Upper Respiratory Illness Source: Patient Present Illness HPI 68-year-old female presents ED for evaluation. Complaining of cough, chest pain for the last 3 days. Cough is productive with yellowish phlegm. Notes pain with coughing. 10 out of 10, dull, nonradiating. Denies fevers or chills. States she feels short of breath. Denies sick contacts or recent travel. No other aggravating relieving factors. Denies any other associated symptoms Allergies: Coded Allergies: CODEINE (Unverified Allergy, Severe, Hives, 11/13/13) Patient History Past Medical History: HTN, CAD Past Surgical History: none Pertinent Family History: none Social History: Denies: smoking, alcohol use, drug use Now: No Immunizations: UTD Reviewed Nursing Documentation: PMH: Agreed; PSxH: Agreed Nursing Documentation-PMH Hx Cardiac Problems: Yes - stent in Hx Hypertension: Yes Hx Cancer: No Hx Gastrointestinal Problems: No Hx Neurological Problems: No Review of Systems All Other Systems: negative except mentioned in HPI Physical Exam Vital Signs Date Time Temp Pulse Resp B/P (MAP) Pulse Ox O2 Delivery O2 Flow Rate FiO2 03/10/19 02:30 98.2 98 20 215/100 (138) 97 Room Air 03/10/19 03:22 21 Sp02 EP Interpretation: reviewed, normal General Appearance: no apparent distress, alert, GCS 15, non-toxic Head: normocephalic, atraumatic Eyes: bilateral eye normal inspection, bilateral eye PERRL ENT: hearing grossly normal, normal pharynx, no angioedema, normal voice Neck: full range of motion, supple/symm/no masses Respiratory: lungs clear, decreased breath sounds, crackles, speaking full sentences, other - reproducible anterior chest wall pain Cardiovascular #1: regular rate, rhythm, no edema Cardiovascular #2: 2+ carotid (R), 2+ carotid (L), 2+ radial (R), 2+ radial (L) , 2+ dorsalis pedis (R), 2+ dorsalis pedis (L) Gastrointestinal: normal bowel sounds, non tender, soft, non-distended, no guarding, no rebound Rectal: deferred Genitourinary: normal inspection, no CVA tenderness Musculoskeletal: back normal, normal range of motion, gait/station normal, non- tender Neurologic: alert, motor strength/tone normal, oriented x3, sensory intact, responsive, speech normal Psychiatric: judgement/insight normal, memory normal, mood/affect normal, no suicidal/homicidal ideation Reflexes: 3+ bicep (R), 3+ bicep (L), 3+ tricep (R), 3+ tricep (L), 3+ knee (R) , 3+ knee (L) Skin: no rash Lymphatic: no adenopathy Medical Decision Making Diagnostic Impression: Primary Impression: ACS (acute coronary syndrome) Additional Impression: Flu-like symptoms ER Course Hospital Course 68 yo F presents with cough. chest pain. Differential diagnoses include: Pneumonia, CHF exacerbation, pneumothorax, fluid overload Clinical course Patient placed on stretcher. After initial history and physical I ordered labs , IV fluids, EKG, chest x-ray, pain meds, nebs Labs - no leukocytosis, hemoglobin/hematocrit stable, electroltes ok, lactate okay troponins 0.074, flu swab negative EKG - NSR no acute ischemic changes interpreted by me CXR - cardiomegaly, no focal consolidation Given antibiotics. Given aspirin Case discussed with Dr. Engle and he agreed to the patient to his service for further care and support I feel this is a highly complex case requiring extensive working including EKG/ Rhythm strip, Xray/CT/US, Blood/urine lab work, repeat exams while in ED, and administration of strong opiates/narcotics for pain control, admission to hospital or close patient follow up. Diagnosis - ACS, flu like symptoms Patient admitted to telemetry in serious condition Labs Test 03/10/19 02:47 03/10/19 04:14 White Blood Count 6.8 K/UL (4.8-10.8) Red Blood Count 3.96 M/UL (4.20-5.40) Hemoglobin 12.3 G/DL (12.0-16.0) Hematocrit 40.4 % (37.0-47.0) Mean Corpuscular Volume 102 FL (80-99) Mean Corpuscular Hemoglobin 31.1 PG (27.0-31.0) Mean Corpuscular Hemoglobin Concent 30.5 G/DL (32.0-36.0) Red Cell Distribution Width 20.6 % (11.6-14.8) Platelet Count 211 K/UL (150-450) Mean Platelet Volume 8.3 FL (6.5-10.1) Neutrophils (%) (Auto) 43.8 % (45.0-75.0) Lymphocytes (%) (Auto) 42.6 % (20.0-45.0) Monocytes (%) (Auto) 11.9 % (1.0-10.0) Eosinophils (%) (Auto) 1.1 % (0.0-3.0) Basophils (%) (Auto) 0.6 % (0.0-2.0) Sodium Level 142 MMOL/L (136-145) Potassium Level 4.0 MMOL/L (3.5-5.1) Chloride Level 104 MMOL/L (98-107) Carbon Dioxide Level 28 MMOL/L (21-32) Anion Gap 10 mmol/L (5-15) Blood Urea Nitrogen 26 mg/dL (7-18) Creatinine 1.0 MG/DL (0.55-1.30) Estimat Glomerular Filtration Rate > 60 mL/min (>60) Glucose Level 99 MG/DL (74-106) Lactic Acid Level 1.90 mmol/L (0.4-2.0) Calcium Level 9.6 MG/DL (8.5-10.1) Total Bilirubin 0.6 MG/DL (0.2-1.0) Aspartate Amino Transf (AST/SGOT) 11 U/L (15-37) Alanine Aminotransferase (ALT/SGPT) 13 U/L (12-78) Alkaline Phosphatase 107 U/L (46-116) Troponin I 0.074 ng/mL (0.000-0.056) Pro-B-Type Natriuretic Peptide 816 pg/mL (0-125) Total Protein 8.8 G/DL (6.4-8.2) Albumin 3.5 G/DL (3.4-5.0) Globulin 5.3 g/dL Albumin/Globulin Ratio 0.7 (1.0-2.7) Urine Color Pale yellow Urine Appearance Clear Urine pH 6 (4.5-8.0) Urine Specific [place] 1.005 (1.005-1.035) Urine Protein 2+ (NEGATIVE) Urine Glucose (UA) Negative (NEGATIVE) Urine Ketones Negative (NEGATIVE) Urine Blood 1+ (NEGATIVE) Urine Nitrite Negative (NEGATIVE) Urine Bilirubin Negative (NEGATIVE) Urine Urobilinogen Normal MG/DL (0.0-1.0) Urine Leukocyte Esterase Negative (NEGATIVE) Urine RBC 0-2 /HPF (0 - 2) Urine WBC 0 /HPF (0 - 2) Urine Squamous Epithelial Cells Few /LPF (NONE/OCC) Urine Bacteria None /HPF (NONE) EKG Diagnostic Results Rate: normal Rhythm: NSR ST Segments: no acute changes ASA given to the pt in ED: No Rhythm Strip Diag. Results EP Interpretation: yes Rhythm: NSR, no PVC's, no ectopy Chest X-Ray Diagnostic Results Chest X-Ray Diagnostic Results : Chest X-Ray Ordered: Yes # of Views/Limited/Complete: 1 View Indication: Shortness of Breath EP Interpretation: Yes Interpretation: no consolidation, no effusion, no pneumothorax, no acute cardiopulmonary disease, other - cardiomegaly Impression: Other Electronically Signed by: Electronically signed by Lenard Boss MD Last Vital Signs Date Time Temp Pulse Resp B/P (MAP) Pulse Ox O2 Delivery O2 Flow Rate FiO2 03/10/19 04:39 98.2 88 21 178/79 94 Room Air 03/10/19 03:22 21 Status: improved Disposition: ADMITTED INPATIENT Condition: Serious Referrals: [facility],REFERRING (PCP) Lenard Boss MD Mar 10, 2019 05:56
--- NOTE | 2019-03-10 06:15 | NUR ---
ED Nurse Note: PT BP 201/93. ERMD NOTIFIED. WILL CARRY OUT ORDER AND CONTINUE TO MONITOR PATIENT.
[2019-03-10] MEDS ORDERED: LISINOPRIL20 MG ORAL (06:43)
--- NOTE | 2019-03-10 06:48 | NUR ---
Isaias bailey in EDM - 03/10/19 at 0659 by [email or web address] ED Nurse Note: pt back from ct via wheelchair accompanied by trade promotion analyst and family.
--- NOTE | 2019-03-10 07:20 | NUR ---
ED Nurse Note: GAVE REPORT TO GROVER NELSON.
--- NOTE | 2019-03-10 08:24 | NUR ---
ED Nurse Note: REPORT GIVEN TO PAOLO NELSON OF TELEMETRY UNIT.
--- NOTE | 2019-03-10 09:23 | NUR ---
ED Nurse Note: PT ASKING FOR MEDICATION FOR NAUSEA AND PAIN. LEFT A VOICEMAIL TO DR FIELD.
--- NOTE | 2019-03-10 09:40 | NUR ---
ED Nurse Note: PT STILL ASKING FOR PAIN AND NAUSEA MEDICATION. DR SIDHU NOTIFIED.
--- NOTE | 2019-03-10 10:05 | NUR ---
ED Nurse Note: PT TRANSFERRED TO TELEMETRY UNIT VIA GURNEY WITH ALL HER BELONGINGS WITH HER. ON FRONT END DEVELOPER DESIGNER WITH RN AND WAITER/WAITRESS CABIN CLASS. PT ON STABLE CONDITION.
--- NOTE | 2019-03-10 12:55 | NUR ---
CASE MANAGEMENT: 68 Y/O FEMALE FROM HOME BIBA CC: SOB/CP PLEURAL PAIN 10/ WITH DRY COUGH SI: UPPER RESPIRATORY ILLNESS 98.2 98 20 215/100 97% RA BUN 26 AST 11 ALT 13 BNP 816 TOT PRO 8.8 TROP 0.074 IS: CXR NEB TX NACL 1L X1 LOPRESSOR 5 MG IV MORPHINE 4 MG IV XOPENEX 1.25 MG NEB TX ATROVENT 0.5 MG NEB TX ASA 162 MG ~~~~~TELEMETRY 2 EAST
--- NOTE | 2019-03-10 12:57 | Diagnostic Imaging Report ---
Indication: Dyspnea Technique: XRAY Chest 1v Comparison: 05/06/2016 Findings: Heart is enlarged. Mediastinal contours are sharp. There are atherosclerotic gastric calcifications. There is central pulmonary vascular congestion. No peter pulmonary edema. No definite focal consolidation. No radiographically appreciable pleural effusion or pneumothorax. There are degenerative changes in the spine and minimal scoliosis. No acute osseous abnormality. Impression: Cardiomegaly and atherosclerotic disease. Mild central pulmonary vascular congestion without overt alveolar edema.
[2019-03-10] MEDS: Nitroglycerin Subl 0.4mg tab SL PRN ×2 (13:02→13:09)
--- NOTE | 2019-03-10 13:15 | NUR ---
NURSE NOTES: Paged Dr. Doe regarding elevated blood pressure after three dose of nitro. No new order given at this time. Will continue to monitor.
[2019-03-10] MEDS ORDERED: Lisinopril 20mg tab ORAL SCH (14:00)
[2019-03-10] MEDS ORDERED: Lexiscan 0.4mg/5ml syringe IV PRN (15:30)
--- NOTE | 2019-03-10 15:30 | NUR ---
NURSE NOTES: Dr. Doe at the nursing station, made aware of elevated blood pressure, order noted, entered, carried out. Will continue to monitor.
--- NOTE | 2019-03-10 16:15 | History and Physical Report ---
DATE OF ADMISSION: 03/10/2019 HISTORY OF PRESENT ILLNESS: This is a 68-year-old female who came to the emergency room for having muscle spasm, lower extremity pain, , left-sided chest pain and anemia. PAST MEDICAL HISTORY: Significant for anemia, history of coronary artery disease. MEDICATIONS: She is taking lisinopril hydrochlorothiazide. ALLERGIES: NKA FAMILY HISTORY: Noncontributory. SOCIAL HISTORY: Lives at home. PHYSICAL EXAMINATION: GENERAL: This is elderly female, comfortable. VITAL SIGNS: Blood pressure slightly high on admission 201/93, currently 165/80, pulse 79, respirations 17, temperature is 98.6. SKIN: Good skin turgor. HEENT: AT/NC. EOMI. PERRLA. NECK: Supple. No JVD. CHEST: Bilaterally clear. CARDIOVASCULAR: Regular rhythm. ABDOMEN: Soft. Positive bowel sounds. Nontender. EXTREMITIES: No edema. GENITOURINARY: Deferred. LABORATORY DATA: White counts are 6.8, hemoglobin 12, hematocrit normal. BUN 26, creatinine 1. Troponin is 0.074. Lactic acid is 1.90. ASSESSMENT: 1. Acute coronary syndrome. 2. Muscle spasm. 3. Dehydration PLAN: 1. We will add aspirin, beta-carlos eduardo. 2. Cardiology consult. 3. Continue home medications. 4. Monitor blood pressure. Yogesh Engle M.D. DR: Fiona JOB#: [id number] CC:
[2019-03-10] MEDS: Lisinopril 20mg tab ORAL SCH (17:13)
--- NOTE | 2019-03-10 17:53 | Cardiac Electrophysiology PN ---
Subjective Subjective [id number] Objective Last 24 Hour Vital Signs Date Time Temp Pulse Resp B/P (MAP) Pulse Ox O2 Delivery O2 Flow Rate FiO2 03/10/19 17:13 98 181/101 03/10/19 17:13 181/101 03/10/19 17:13 181/101 03/10/19 16:00 98 03/10/19 16:00 2.0 03/10/19 16:00 97.0 98 12 181/101 (127) 94 03/10/19 14:23 183/103 03/10/19 14:00 183/103 (129) 03/10/19 13:09 188/151 03/10/19 13:08 188/151 (163) 03/10/19 13:03 220/150 (173) 03/10/19 13:02 220/106 03/10/19 13:02 220/105 03/10/19 12:00 107 03/10/19 12:00 97.7 94 12 168/88 (114) 95 03/10/19 12:00 2.0 03/10/19 11:24 Room Air 03/10/19 10:33 186/90 03/10/19 10:05 98.7 85 16 168/84 100 Room Air 03/10/19 08:12 98.6 79 17 165/80 98 Room Air 03/10/19 06:31 82 20 Room Air 21 03/10/19 06:25 201/93 03/10/19 06:15 98.4 82 20 201/93 97 Room Air 03/10/19 04:39 98.2 88 21 178/79 94 Room Air 03/10/19 04:17 98.2 03/10/19 03:46 101 246/106 03/10/19 03:30 98.1 94 20 240/102 97 Room Air 03/10/19 03:22 95 18 100 Room Air 21 03/10/19 02:55 97.8 89 22 208/95 98 Room Air 03/10/19 02:55 69 23 100 Room Air 03/10/19 02:30 98.2 98 20 215/100 (138) 97 Room Air Laboratory Tests Test 03/10/19 02:47 03/10/19 04:14 White Blood Count 6.8 K/UL (4.8-10.8) Red Blood Count 3.96 M/UL (4.20-5.40) L Hemoglobin 12.3 G/DL (12.0-16.0) Hematocrit 40.4 % (37.0-47.0) Mean Corpuscular Volume 102 FL (80-99) H Mean Corpuscular Hemoglobin 31.1 PG (27.0-31.0) H Mean Corpuscular Hemoglobin Concent 30.5 G/DL (32.0-36.0) L Red Cell Distribution Width 20.6 % (11.6-14.8) H Platelet Count 211 K/UL (150-450) Mean Platelet Volume 8.3 FL (6.5-10.1) Neutrophils (%) (Auto) 43.8 % (45.0-75.0) L Lymphocytes (%) (Auto) 42.6 % (20.0-45.0) Monocytes (%) (Auto) 11.9 % (1.0-10.0) H Eosinophils (%) (Auto) 1.1 % (0.0-3.0) Basophils (%) (Auto) 0.6 % (0.0-2.0) Sodium Level 142 MMOL/L (136-145) Potassium Level 4.0 MMOL/L (3.5-5.1) Chloride Level 104 MMOL/L (98-107) Carbon Dioxide Level 28 MMOL/L (21-32) Anion Gap 10 mmol/L (5-15) Blood Urea Nitrogen 26 mg/dL (7-18) H Creatinine 1.0 MG/DL (0.55-1.30) Estimat Glomerular Filtration Rate > 60 mL/min (>60) Glucose Level 99 MG/DL (74-106) Lactic Acid Level 1.90 mmol/L (0.4-2.0) Calcium Level 9.6 MG/DL (8.5-10.1) Total Bilirubin 0.6 MG/DL (0.2-1.0) Aspartate Amino Transf (AST/SGOT) 11 U/L (15-37) L Alanine Aminotransferase (ALT/SGPT) 13 U/L (12-78) Alkaline Phosphatase 107 U/L (46-116) Troponin I 0.074 ng/mL (0.000-0.056) Pro-B-Type Natriuretic Peptide 816 pg/mL (0-125) H Total Protein 8.8 G/DL (6.4-8.2) H Albumin 3.5 G/DL (3.4-5.0) Globulin 5.3 g/dL Albumin/Globulin Ratio 0.7 (1.0-2.7) L Urine Color Pale yellow Urine Appearance Clear Urine pH 6 (4.5-8.0) Urine Specific [place] 1.005 (1.005-1.035) Urine Protein 2+ (NEGATIVE) H Urine Glucose (UA) Negative (NEGATIVE) Urine Ketones Negative (NEGATIVE) Urine Blood 1+ (NEGATIVE) H Urine Nitrite Negative (NEGATIVE) Urine Bilirubin Negative (NEGATIVE) Urine Urobilinogen Normal MG/DL (0.0-1.0) Urine Leukocyte Esterase Negative (NEGATIVE) Urine RBC 0-2 /HPF (0 - 2) Urine WBC 0 /HPF (0 - 2) Urine Squamous Epithelial Cells Few /LPF (NONE/OCC) Urine Bacteria None /HPF (NONE) Microbiology Date/Time Source Procedure Growth Status 03/10/19 02:47 Nasal Nares - Final Complete 03/10/19 02:47 Nasal Nares - Final Complete Ike Doe MD Mar 10, 2019 17:53
--- NOTE | 2019-03-10 18:50 | NUR ---
HAND-OFF: Report given to LESLIE Alvarez.
--- NOTE | 2019-03-10 19:00 | NUR ---
NURSE NOTES: Received pt and report from LESLIE Alvarez. Observed pt resting in bed with both eyes open with family members at bedside. Pt is A/Ox4. campus monitor is in placed; pt is sinus tachycardia. IV site intact, asymptomatic, and patent; currently running D5W @75cc/hr. Bed is in the lowest position and locked. Call light and bedside table is within reach. No signs/symptoms of acute distress noted at this time. Will continue plan of care.
[2019-03-10] MEDS: traMADol 50mg tab ORAL PRN (19:48)
[2019-03-10] MEDS: Atorvastatin 20mg tab ORAL SCH (21:13)
[2019-03-10] MEDS: Metoprolol Tartrate 50mg tab ORAL SCH (21:13)
[2019-03-11] VITALS: BP 164/94
--- NOTE | 2019-03-11 00:15 | Consultation ---
DATE OF CONSULTATION: 03/10/2019 CARDIOLOGY CONSULTATION CONSULTING PHYSICIAN: Ike Doe M.D. REFERRING PHYSICIAN: Andrzej Engle M.D. REASON FOR CONSULTATION: Accelerated hypertension. HISTORY OF PRESENT ILLNESS: The patient is a 68-year-old lady with history of hypertension and coronary artery disease [place], who presents to the emergency room complaining of cough and chest pain of three days' duration. The patient's pain was dull and nonradiating. Denied any shortness of breath, nausea, or vomiting. The patient also had accelerated blood pressure with high blood pressure of 215/100 with a pulse of 98. Cardiology consultation was obtained for further evaluation. REVIEW OF SYSTEMS: Negative other than what was mentioned in the history of present illness. PAST MEDICAL HISTORY: As mentioned above. FAMILY HISTORY: Noncontributory. SOCIAL HISTORY: Does not smoke or drink alcohol. PHYSICAL EXAMINATION: VITAL SIGNS: Show blood pressure of 181/101, pulse 98, respirations 18, and she is afebrile. HEAD AND NECK: Showed no JVD or carotid bruits. LUNGS: Clear. CARDIOVASCULAR: Regular S1 and S2 with no gallop or murmur. ABDOMEN: Soft and nontender. EXTREMITIES: No pitting edema. LABORATORY DATA: White count of 6.8, hemoglobin 12.2, hematocrit of 40, and platelet count of 211,000. Sodium 142, potassium 4.0, BUN 23, creatinine 1.0, and glucose of 99. Troponin is 0.074. BNP is 816. EKG showed normal sinus rhythm with left ventricular hypertrophy. ASSESSMENT AND PLAN: 1. Non-ST elevation myocardial infarction. The troponin level was 0.074 and the patient also had chest pain. We will do serial cardiac enzymes. If the troponins are in the same level, we will proceed with nuclear stress test. Echocardiogram is also pending. 2. Accelerated hypertension. Increase amlodipine to 5 mg b.i.d. and lisinopril 20 mg b.i.d. and IV hydralazine. I will add metoprolol 50 mg b.i.d. to her medical regimen, as the patient continues to be very hypertensive. I will also add Lipitor in view of elevated troponin. 3. Possible congestive heart failure, BNP of 816. Again, echocardiogram is pending. Thank you very much for allowing me to participate in the care of this patient. Please do not hesitate to contact me for any questions regarding my evaluation. Ike Doe M.D. DR: TEA JOB#: [id number] CC:
[2019-03-11 04:00] VITALS: BP 167/94
--- NOTE | 2019-03-11 05:13 | NUR ---
NURSE NOTES: Notified Dr. Doe regarding troponin result of 0.079; no orders at this time.
--- NOTE | 2019-03-11 07:44 | NUR ---
NURSE NOTES: nurse report given by LESLIE Quiroga. Patient's awake and laying in bed, AO x 4, denies pain, no s/s of distress or SOB, denies nausea at this moment. Bed low and locked, call light within reach, side rails x 2, bed alarm is armed, trim operator is on. IV is running fluid, no s/s tenderness or infiltration. NPO at this moment for lexiscan procedure. Will continue to monitor.
--- NOTE | 2019-03-11 07:46 | NUR ---
HAND-OFF: Report given to ELSLIE Lozada. Plan of care endorsed.
[2019-03-11 08:00] VITALS: BP 179/96
[2019-03-11] MEDS: Metoprolol Tartrate 50mg tab ORAL SCH ×2 (09:00→21:47)
[2019-03-11] MEDS: Lisinopril 20mg tab ORAL SCH ×2 (09:00→17:43)
[2019-03-11] MEDS: Aspirin Baby 81mg ORAL SCH (09:00)
--- NOTE | 2019-03-11 09:59 | NUR ---
CASE MANAGEMENT:REVIEW 03/11/19 SI: NSTEMI. ACCELERATED HTN 98.0 71 20 179/96 96% ON 2L/NC TROPONIN(+) 0.079 IS: ASA PO QD LOPRESSOR PO Q12 LIPITOR PO QHS PROTONIX PO QD LISINOPRIL PO BID NORVASC PO BID IVF@75/HR : TELEMETRY STATUS DCP: FROM HOME PLAN: STRESS TEST ORDERED
--- NOTE | 2019-03-11 10:30 | NUR ---
NURSE NOTES: Patient complains of chest pain, stabbing pain, 7/10. Performed EKG and gave 3 times Nitroglycerin sublingual, 4mg Zofran IVP. Left message to Dr. Doe regarding patient's condition and awaiting for response.
[2019-03-11] MEDS: Nitroglycerin Subl 0.4mg tab SL PRN (11:07)
--- NOTE | 2019-03-11 11:33 | NUR ---
NURSE NOTES: Notified by Kev, master hearth technician that Lexiscan is cancelled due to patient's having chest pain.
[2019-03-11 12:00] VITALS: BP 143/69
[2019-03-11] MEDS: traMADol 50mg tab ORAL PRN (15:16)
--- NOTE | 2019-03-11 15:25 | Cardiac Electrophysiology PN ---
Assessment/Plan Assessment/Plan 1. Non-ST elevation myocardial infarction. The troponin levels are all at 0.074 Rescheduled Nuclear stress test for AM. On Aspirin, Lopressor and Lipitor Echocardiogram is also pending. 2. Accelerated hypertension. On amlodipine 5 mg b.i.d., lisinopril 20 mg b.i.d. metoprolol 50 mg b.i.d. Add Hydralazine 25 bid 3. Possible congestive heart failure, BNP of 816. Again, echocardiogram is pending. Subjective Subjective Stress test cancelled for chest pain and accelerated HTN Objective Last 24 Hour Vital Signs Date Time Temp Pulse Resp B/P (MAP) Pulse Ox O2 Delivery O2 Flow Rate FiO2 03/11/19 12:00 83 03/11/19 12:00 2.0 03/11/19 12:00 97.7 81 20 143/69 (93) 94 03/11/19 11:07 159/81 03/11/19 09:39 179/96 03/11/19 09:00 Nasal Cannula 2.0 03/11/19 09:00 71 179/96 03/11/19 09:00 71 179/96 03/11/19 09:00 179/96 03/11/19 08:00 2.0 03/11/19 08:00 74 03/11/19 08:00 98.0 71 20 179/96 (123) 96 03/11/19 04:00 101 03/11/19 04:00 97.5 75 19 167/94 (118) 96 03/11/19 04:00 2.0 03/11/19 00:00 97.7 69 17 164/94 (117) 95 03/11/19 00:00 2.0 03/11/19 00:00 69 03/10/19 21:13 104 150/80 03/10/19 21:00 Nasal Cannula 2.0 03/10/19 20:00 112 03/10/19 20:00 2.0 03/10/19 20:00 97.9 104 17 150/80 (103) 96 03/10/19 17:13 98 181/101 03/10/19 17:13 181/101 03/10/19 17:13 181/101 03/10/19 16:00 98 03/10/19 16:00 2.0 03/10/19 16:00 97.0 98 12 181/101 (127) 94 Intake and Output 03/10/19 03/11/19 19:00 07:00 Intake Total 350 ml Balance 350 ml Intake Oral 200 ml IV Total 150 ml # Voids 2 # Bowel Movements 1 Laboratory Tests Test 03/10/19 18:50 03/11/19 00:55 03/11/19 06:50 Troponin I 0.072 ng/mL (0.000-0.056) 0.079 ng/mL (0.000-0.056) 0.079 ng/mL (0.000-0.056) Microbiology Date/Time Source Procedure Growth Status 03/10/19 02:47 Blood Blood Culture - Preliminary NO GROWTH AFTER 24 HOURS Resulted 03/10/19 02:30 Blood Blood Culture - Preliminary NO GROWTH AFTER 24 HOURS Resulted 03/10/19 02:47 Nasal Nares - Final Complete 03/10/19 02:47 Nasal Nares - Final Complete Objective HEAD AND NECK: Showed no JVD or carotid bruits. LUNGS: Clear. CARDIOVASCULAR: Regular S1 and S2 with no gallop or murmur. ABDOMEN: Soft and nontender. EXTREMITIES: No pitting edema. Ike Doe MD Mar 11, 2019 15:25
[2019-03-11 16:00] VITALS: BP 132/59
--- NOTE | 2019-03-11 17:30 | NUR ---
NURSE NOTES: Spoke to Dr. Doe in person and MD would like to reschedule stress test on patient on 03/12/2019. Order acknowledged and carried out.
[2019-03-11] MEDS: HydrALAZINE 25mg tab ORAL SCH (17:41)
--- NOTE | 2019-03-11 19:25 | NUR ---
HAND-OFF: Report given to Mike Quiroga. Patient's stable, plan of care endorsed.
--- NOTE | 2019-03-11 19:35 | NUR ---
NURSE NOTES: Received pt and report from LESLIE Lozada. Observed pt resting in bed with both eyes closed; arousable to voice. Pt is A/Ox4. compliance monitor is in placed; pt is NSR. IV site intact, asymptomatic, and patent; currently running D5W @75cc/hr. Bed is in the lowest position and locked. Call light and bedside table is within reach. Lexiscan is reschedule for tomorrow (03/12/19) due to chest pain today. Pt will be NPO at midnight. No signs/symptoms of acute distress noted at this time. Will continue plan of care.
[2019-03-11 20:00] VITALS: BP 130/72
[2019-03-11] MEDS: Atorvastatin 20mg tab ORAL SCH (21:47)
[2019-03-12] VITALS: BP 131/66
--- NOTE | 2019-03-12 01:45 | Progress Note ---
DATE: 03/11/2019 SUBJECTIVE: This is an elderly female who came to the emergency room with short of breath, CHF, and hypertension. The patient was treated with IV Lasix and bronchodilator treatment. PHYSICAL EXAMINATION: GENERAL: The patient is doing better. VITAL SIGNS: Blood pressure is 130/70, pulse 74, and respirations 18. SKIN: Good skin turgor. HEENT: NAD. CHEST: Bilateral crackles. CARDIOVASCULAR: Regular rhythm. No gallop. No murmur. ABDOMEN: Soft. Positive bowel sounds. Nontender. EXTREMITIES: No edema. GENITOURINARY: Deferred. LABORATORY EXAMINATION: Not available. ASSESSMENT AND PLAN: 1. Acute coronary syndrome. 2. CHF. 3. Hypertension. 4. Diabetes. PLAN: 1. Continue her current medical treatment. 2. Continue Lasix, bronchodilator treatment, and antibiotics. 3. Cardiology is on case. Yogesh Engle M.D. DR: PEREZ JOB#: [id number] CC:
--- NOTE | 2019-03-12 03:57 | NUR ---
NURSE NOTES: Observed pt asleep in bed. No signs/symptoms of acute distress noted at this time. Will continue plan of care.
[2019-03-12 04:00] VITALS: BP 134/81
--- NOTE | 2019-03-12 07:20 | NUR ---
NURSE NOTES: Nurse report given by LESLIE Quiroga. Patient's sleeping in bed but easily awaken, eyes open spontaneously, denies chest pain, no s/s of distress or SOB, AAO x 4. Bed low and locked, call light within reach, side rails x 2, bed alarm is on. IV is running fluid, no s/s of infiltration or tenderness. radiation monitor is on. Will continue to monitor.
--- NOTE | 2019-03-12 07:24 | NUR ---
HAND-OFF: Report given to LESLIE Lozada. Plan of care endorsed.
[2019-03-12 08:00] VITALS: BP 161/87
[2019-03-12] MEDS: Metoprolol Tartrate 50mg tab ORAL SCH ×2 (09:00→20:56)
[2019-03-12] MEDS: Aspirin Baby 81mg ORAL SCH (09:36)
[2019-03-12] MEDS: Lisinopril 20mg tab ORAL SCH ×2 (09:37→17:44)
[2019-03-12] MEDS: HydrALAZINE 25mg tab ORAL SCH (09:37)
--- NOTE | 2019-03-12 10:04 | NUR ---
CASE MANAGEMENT:REVIEW 03/12/19 SI: NSTEMI. ACCELERATED HTN 97.3 72 20 161/73 96% ON 2L/NC IS: ASA PO QD LOPRESSOR PO Q12 LIPITOR PO QHS PROTONIX PO QD LISINOPRIL PO BID NORVASC PO BID IVF@75/HR : TELEMETRY STATUS DCP: FROM HOME PLAN: STRESS TEST WAS CANCELLED YESTERDAY D/T PATIENT C/O CHEST PAIN PLAN IS TO PERFORM STRESS TEST TODAY
[2019-03-12 12:00] VITALS: BP 142/74
--- NOTE | 2019-03-12 12:04 | Cardiac Electrophysiology PN ---
Assessment/Plan Assessment/Plan 1. Non-ST elevation myocardial infarction type 2. The troponin levels are all at 0.074 Rescheduled Nuclear stress test for today. On Aspirin, Lopressor and Lipitor Echocardiogram EF 65% 2. Accelerated hypertension. On amlodipine 5 mg b.i.d., lisinopril 20 mg b.i.d. metoprolol 50 mg b.i.d. and Hydralazine 50 bid 3. Possible congestive heart failure, BNP of 816. Nl EF 65% Subjective Subjective NPO for Stress test today Objective Last 24 Hour Vital Signs Date Time Temp Pulse Resp B/P (MAP) Pulse Ox O2 Delivery O2 Flow Rate FiO2 03/12/19 09:37 161/87 03/12/19 09:37 161/73 03/12/19 09:36 72 161/87 03/12/19 09:00 Nasal Cannula 2.0 03/12/19 08:00 2.0 03/12/19 08:00 97.3 72 20 161/87 (111) 96 03/12/19 08:00 66 03/12/19 04:00 2.0 03/12/19 04:00 96.7 81 18 134/81 (98) 97 03/12/19 04:00 71 03/12/19 00:00 2.0 03/12/19 00:00 96.8 83 19 131/66 (87) 98 03/12/19 00:00 64 03/11/19 21:47 97 130/72 03/11/19 21:00 Nasal Cannula 2.0 03/11/19 20:00 2.0 03/11/19 20:00 91 03/11/19 20:00 97.9 97 18 130/72 (91) 96 03/11/19 17:41 132/59 03/11/19 17:41 86 132/59 03/11/19 16:00 2.0 03/11/19 16:00 87 03/11/19 16:00 97.9 86 20 132/59 (83) 94 03/11/19 15:46 97.7 Intake and Output 03/11/19 03/12/19 19:00 07:00 Intake Total 275 ml 750 ml Balance 275 ml 750 ml Intake Oral 200 ml IV Total 75 ml 750 ml # Voids 2 2 # Bowel Movements 1 Microbiology Date/Time Source Procedure Growth Status 03/10/19 02:47 Blood Blood Culture - Preliminary NO GROWTH AFTER 48 HOURS Resulted 03/10/19 02:30 Blood Blood Culture - Preliminary NO GROWTH AFTER 48 HOURS Resulted 03/10/19 02:47 Nasal Nares - Final Complete 03/10/19 02:47 Nasal Nares - Final Complete Objective HEAD AND NECK: No JVD or carotid bruits. LUNGS: Clear. CARDIOVASCULAR: Regular S1 and S2 with no gallop or murmur. ABDOMEN: Soft and nontender. EXTREMITIES: No pitting edema. Ike Doe MD Mar 12, 2019 12:04
--- NOTE | 2019-03-12 13:54 | NUR ---
*-* INSURANCE *-* [facility]: [facility] P: [phone] F: [phone] X [phone]
[2019-03-12] MEDS: traMADol 50mg tab ORAL PRN (14:57)
--- NOTE | 2019-03-12 15:39 | Diagnostic Imaging Report ---
Indications: Chest pain Technique: Single day single isotope protocol utilized. Initially, resting images obtained using IV administration 10.9 millicuries 99M technetium Myoview. Subsequently, patient underwent lexiscan stress testing. See cardiology report for details. During Lexiscan infusion, IV administration 30 2. mCi 99 M technetium Myoview. SPECT and planar images obtained. SPECT images gated to 8 phases of the cardiac cycle were also obtained, and reformatted into cine images for evaluation of ejection fraction. Comparison: none Findings: Per cardiology report, patient experienced no chest pain. Per cardiology report, resting EKG demonstrates normal sinus rhythm. No significant ST changes noted during infusion. Imaging demonstrates normal poststress perfusion, no fixed nor reversible perfusion defects. Normal cardiac chamber size.. Calculated post stress ejection fraction 71%. No focal wall motion abnormality Impression: Nonischemic clinical response to pharmacologic stress, per cardiology report Nonischemic electrocardiographic response to pharmacologic stress, per cardiology report No imaging findings to suggest ischemia, at level of stress achieved. Calculated post stress ejection fraction 71%
[2019-03-12 16:00] VITALS: BP 134/72
[2019-03-12] MEDS: HydrALAZINE 50mg tab ORAL SCH (17:44)
--- NOTE | 2019-03-12 19:39 | NUR ---
HAND-OFF: Report given to LESLIE Galvan. Plan of care endorsed.
--- NOTE | 2019-03-12 19:54 | NUR ---
NURSE NOTES: Received pt from LESLIE Zhu. Pt awake, alert, and talkative. Bed in lowest position. Call light within reach. Will continue to monitor.
[2019-03-12 20:00] VITALS: BP 119/60
[2019-03-12] MEDS: Atorvastatin 20mg tab ORAL SCH (20:56)
[2019-03-13] VITALS: BP 120/66
[2019-03-13 04:00] VITALS: BP 111/71
--- NOTE | 2019-03-13 07:30 | NUR ---
NURSE NOTES: Nurse report given by LESLIE Galvan. Patient's awake and sitting in bed. AAO x 4, denies chest pain, denies pain, complains of nausea. Bed low and locked, call light within reach, side rails x 2, bed alarm is armed. IV is running fluid, no s/s of infiltration or tenderness. Will continue to monitor.
--- NOTE | 2019-03-13 07:49 | NUR ---
HAND-OFF: Report given to LESLIE Zhu. Pt stable.
[2019-03-13 08:00] VITALS: BP 131/64
[2019-03-13] MEDS: Aspirin Baby 81mg ORAL SCH (08:46)
[2019-03-13] MEDS: Lisinopril 20mg tab ORAL SCH (08:46)
[2019-03-13] MEDS: HydrALAZINE 50mg tab ORAL SCH (08:46)
[2019-03-13 08:47] VITALS: BP 131/64
[2019-03-13] MEDS: Metoprolol Tartrate 50mg tab ORAL SCH (08:47)
[2019-03-13] MEDS ORDERED: ASPIR 8181 MG ORAL (09:07)
[2019-03-13] MEDS ORDERED: NORVASC10 MG ORAL (09:07)
[2019-03-13] MEDS ORDERED: LIPITOR40 MG ORAL (09:09)
[2019-03-13] MEDS ORDERED: HYDRALAZINE HCL50 MG ORAL (09:11)
[2019-03-13] MEDS ORDERED: LISINOPRIL20 MG ORAL (09:13)
[2019-03-13] MEDS ORDERED: METOPROLOL TART50 M1 ORAL (09:14)
--- NOTE | 2019-03-13 11:45 | NUR ---
NURSE NOTES: Patient's discharged per Dr. Engle's order. Patient's in stable condition, denies chest pain, no s/s of distress or SOB, ambulates with steady gait. Patient's belonging list and discharge document went over with patient and signed by patient at bedside. IV is taken out, ID discarded properly, laboratory monitor removed. Patient's picked up by sonJalen. Patient acknowledged to get new medications with new prescriptions. Patient's wheeled off the unit by RN. Charge nurse Fe and fiscal technician aware. Patient's off the floor at 1145.
--- NOTE | 2019-03-13 18:15 | Discharge Summary ---
DATE OF ADMISSION: 03/10/2019 DATE OF DISCHARGE: 03/13/2019 NOTE: "POOR AUDIO QUALITY" HOSPITAL COURSE: This is a 68-year-old female who came to the emergency room for CHF. Cardiology consult was obtained. The patient did very well. Cardiology workup was done and was so far negative. The patient is physically doing better. Her troponins were 0.074 to 0.079. Cardiac clearance was done. The patient is physically doing better. She is going to go home. Her blood cultures and urine culture so far negative. PHYSICAL EXAMINATION: CURRENT VITAL SIGNS: Blood pressure 131/64, pulse 73. No fever. CHEST: Bilaterally clear. CARDIOVASCULAR: Regular rhythm. ABDOMEN: Soft. Positive bowel sounds. Nontender. EXTREMITIES: No edema. DISCHARGE DIAGNOSES: 1. Hypertension. 2. CHF. 3. Cardiomyopathy. DIET: She is on 2-gram sodium diet. ACTIVITY: As tolerated. DISCHARGE MEDICATIONS: The patient is going to continue metoprolol. Added hydralazine 50 mg twice a day. Continue aspirin, metoprolol, Lipitor. Continue amlodipine. FOLLOWUP: Follow up as an outpatient with primary care. Yogesh Engle M.D. DR: Verena JOB#: [id number] CC:
--- NOTE | 2019-03-14 10:23 | NUR ---
CASE MANAGEMENT: CM review and clinical information (face sheet/ H&P/ ER MD report/ DC summary) faxed to YASHIRA/GEORGIE @ [phone]
--- NOTE | 2019-03-15 15:10 | NUR ---
*-* INSURANCE *-* [facility]: [facility] P: [phone] F: [phone] X [phone] Addendum: 03/15/19 at 1510 by CHACHO CHAMPION CM DISCHARGE SUMMARY HAS BEEN FAXED
--- NOTE | 2019-03-16 06:56 | CDS Physician Query ---
Clarification is required for compliance, coding accuracy, and to reflect severity of illness for this patient Dear Ike Alvarenga MD Date: 03/16/2019 Chief Security And Safety Officer/CDS Name: Mor Aviles Assessment/Plan Assessment/Plan 1. Non-ST elevation myocardial infarction type 2. The troponin levels are all at 0.074 Rescheduled Nuclear stress test for today. On Aspirin, Lopressor and Lipitor Echocardiogram EF 65% 2. Accelerated hypertension. On amlodipine 5 mg b.i.d., lisinopril 20 mg b.i.d. metoprolol 50 mg b.i.d. and Hydralazine 50 bid 3. Possible congestive heart failure, BNP of 816. Nl EF 65% Please Clarify: Acuity [] Acute [] Chronic [] Acute on Chronic Type [] Systolic [] Diastolic [] Systolic & Diastolic (Combined) [] Other: Present on Admission: [] Yes [] No [] Clinically Undetermined Physician signature Date Please also document in your Progress Notes and/or Discharge Summary and indicate if the condition was present on admission. MTDD
== END 2019-03-13 11:51 | disposition home or self-care (01) | DRG 281 ==
LOC: EDUNIT# 02:28 → EDBD 02:28 → EMR 02:50 → 2E 05:42 → EDBEDREQ 06:47 → 2E 13:33
DX: I21.A1 Myocardial infarction type 2 (principal); I42.9 Cardiomyopathy, unspecified; I50.32 Chronic diastolic (congestive) heart failure; R06.02 Shortness of breath; Z88.6 Allergy status to analgesic agent; I25.10 Atherosclerotic heart disease of native coronary artery without angina pectoris; E86.0 Dehydration; I11.0 Hypertensive heart disease with heart failure
CPT/HCPCS: 36415; 71045; 78452; 80053; 81003; 83605; 83880; 84484; 85025; 86710; 87040; 93005; 93017; 93306; 96361; 96365; 96375; 99285; J2405; J2785; J7030